=== PATIENT | female | born 1975 | race Caucasian/White ===

== ENCOUNTER 2019-12-17 12:13 | Emergency (ER) | payer SELFPAY ==
--- OUTSIDE RECORDS SUMMARY | 2019-12-17 12:18 | XMS REPORT | Continuity of Care Document ---
:1975 Author Organization [facility] HCIS Care Team Providers Name Role Phone FOUND, PCP NOT Primary Care Physician Unavailable Allergies, Adverse Reactions, Alerts Allergen Type Severity Reaction Last Verified Status Updated Penicillin Allergy Unknown February 21, No Active 2018 Prochlorperazine Allergy Unknown September No Active 2018 Nitrofurantoin Allergy Unknown February 21, No Active 2019 Sumatriptan Allergy Unknown February 21, No Active 2019 Metoclopramide Allergy Unknown February 21, No Active 2019 Eggs Allergy Unknown February 21, No Active 2019 SEAFOOD Allergy Unknown September No Active 2018 Medications Medication Status Dose Units Route Sig Qty Days Start End Instructions Date Date Ciprofloxacin Active 500 mg Every 12 20 November Hours 2018 8:44am Ondansetron Hcl Active 4 mg Every 8 15 November Hours as 2018 for 8:44am Nausea / Vomiting Problems No problem information available. Procedures No procedure information available. Relevant Diagnostic Tests and/or Laboratory Data Laboratory Results Test Date/Time Result Interpretation Reference Result Performing Range Comment Site Urine Source [facility] [address] [place] [address] 8:30am Urine Color September Sanjuana Yellow [facility], [address] [place] [address] 8:30am Urine November Clear Clear [facility], [address] Appearance 2018 [facility] [address] 8:30am Urine pH September 6.0 [pH] 5.0-9.0 [facility] [address] [place] [address] 8:30am Urine Specific September 1.025 1.000-1.030 [facility], [address] [place] 2018 [place] [address] 8:30am Urine Protein September Negative Negative CARLUS Justin [facility], [address] 2018 mg/[place] [address] 8:30am Urine Glucose September Normal Normal NIKHIL Anderson [facility], [address] (UA) 2018 mg/[place] [address] 8:30am Urine Ketones September Trace Negative NIKHIL Anderson [facility], [address] 2018 mg/[place] [address] 8:30am Urine Occult November Negative Negative CARLUS Justin [facility], [address] Blood 2018 /[place] [address] 8:30am Urine Nitrite September Negative Negative NIKHIL Anderson [facility], [address] [place] [address] 8:30am Urine Bilirubin September Negative Negative NIKHIL Anderson [facility], [address] 2018 mg/[place] [address] 8:30am Urine November 4.0 mg/dL [facility], [address] Urobilinogen 2018 [place] [address] 8:30am Urine Leukocyte September 25 /uL Negative NIKHIL Anderson [facility], [address] Esterase 2018 [place] [address] 8:30am Urine RBC September None 0-[address] [facility], [address] 2018 /[HPF] [place] [address] 8:30am Urine WBC September 0-2 /[HPF] 0-[address] [facility], [address] [place] [address] 8:30am Urine Squamous September 3+ Many CARLUS Justin [facility], [address] Epithelial 2018 /[LPF] [place] [address] Cells 8:30am Urine Bacteria September 1+ Few Few/HPF NIKHIL Anderson [facility], [address] 2018 /[HPF] [place] [address] 8:30am Urine Culture September No, NIKHIL Anderson [facility], [address] Indicated 2018 [place] [address] 8:30am Not Met Health Concerns Health Concerns may be documented in an alternate section. Advance Directives Advance Directive Response Recorded Date/Time Does the Patient have an Unknown November 15th, 2019 8:31am Advance Directive? Encounters Encounter Location(s) Arrival/Admit Date Discharge/Depart Date Provider(s) Registered NIKHIL Harrison October 09 DANGELO LITTLE [facility] 12:06pm Departed [facility] October 08October 08, 2019 ALEX TALBERT Emergency Room [facility] 2018 8:20am 8:52am ALMA Cullen MD Departed [facility] October 07October 07, 2019 SAMAN VALENCIA Emergency Room [facility] 2018 6:23pm 6:49pm Assessments No Assessments Information Available Functional Status Observation Response Date Recorded Onset Within the Last 7 Days No Problem Identified October 08, 2019 8:31am Goals Goals may be documented in an alternate section. Immunizations No Immunization Information Available Mental Status No Mental Status Information Available Medical Equipment No Medical Equipment Information available Insurance Providers Guarantor Babatunde Chambers Address [address] [place] [address] Contact Info. Home Phone: Payer Policy Id Coverage Id Subscriber's Subscriber Effective Expiration Name Id Date Date Ne Patient [id number] Babatunde Chambers Insurance Plan of Treatment Future Tests Future scheduled test information is unavailable Pending Tests Pending diagnostic test information is unavailable Future Visits Future appointment information is unavailable Referrals to Other Providers Reason for Referral Start Provider Provider Contact Provider Address Referral Date Information FOUND, PCP NOT Future Procedures Future procedure information is unavailable Future Medications Future medication information is unavailable Patient Instructions Patient instructions are unavailable Social History Smoking Status Status Date of Observation Smokes tobacco daily (finding) October 08, 2019 8:44am Observation Status Observation Response Date of Response Hx Tobacco Use Yes October 08, 2019 8:44am Assigned Sex Female Vital Signs Vital Reading Result Reference Range Collection Date/Time Body Temperature 98.3 [degF] (97.6 - 99.5) October 08, 2019 8:52am Heart Rate 93 /min (60 - 100) October 08, 2019 8:31am Heart Rate 93 /min October 08, 2019 8:52am Respiratory rate 20 /min (12 - 24) October 08, 2019 8:31am Respiratory rate 20 /min October 08, 2019 8:52am BP Systolic 112 mm[Hg] (100 - 140) October 08, 2019 8:31am BP Systolic 112 mm[Hg] October 08, 2019 8:52am BP Diastolic 72 mm[Hg] (60 - 90) October 08, 2019 8:31am BP Diastolic 72 mm[Hg] October 08, 2019 8:52am
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
--- OUTSIDE RECORDS SUMMARY | 2019-12-17 12:18 | XMS REPORT | Continuity of Care Document ---
:1975 Author Organization [facility] HCIS Care Team Providers Name Role Phone FOUND, PCP NOT Primary Care Physician Unavailable Allergies, Adverse Reactions, Alerts Allergen Type Severity Reaction Last Verified Status Updated Penicillin Allergy Unknown February 21, No Active 2019 Nitrofurantoin Allergy Unknown February 21, No Active 2019 Sumatriptan Allergy Unknown February 21, No Active 2019 Metoclopramide Allergy Unknown February 21, No Active 2019 Eggs Allergy Unknown February 21, No Active 2019 Medications No medication information available. Problems No problem information available. Procedures No procedure information available. Relevant Diagnostic Tests and/or Laboratory Data No known relevant diagnostic tests and/or laboratory data. Health Concerns Health Concerns may be documented in an alternate section. Advance Directives Advance Directive Response Recorded Date/Time Does the Patient have an No March 12, 2019 3:47pm Advance Directive? Encounters Encounter Location(s) Arrival/Admit Date Discharge/Depart Date Provider(s) Departed [facility] October 07October 07, 2019 SAMAN VALENCIA [facility] 6:23pm 6:49pm Assessments No Assessments Information Available Functional Status Observation Response Date Recorded Onset Within the Last 7 Days No Problem Identified February 21, 2019 12:48pm Goals Goals may be documented in an alternate section. Immunizations No Immunization Information Available Mental Status No Mental Status Information Available Medical Equipment No Medical Equipment Information available Plan of Treatment Future Tests Future scheduled [...] Date of Observation Smokes tobacco daily (finding) March 12, 2019 3:59pm Observation Status Observation Response Date of Response Hx Tobacco Use Yes March 12, 2019 3:59pm Assigned Sex Female Vital Signs No vital signs result information available.
--- OUTSIDE RECORDS SUMMARY | 2019-12-17 12:18 | XMS REPORT | Continuity of Care Document ---
:1975 Author Organization [facility] HCIS Care Team Providers Name Role [...] Site Urine Source September [facility] [address] [place] [id number] 8:30am Urine Color September Sanjuana Yellow [facility], [address] 2018 [facility] [address] 8:30am Urine November Clear Clear [facility], [address] Appearance 2018 [facility] [address] 8:30am Urine pH September 6.0 [pH] 5.0-9.0 [facility] [address] 2018 [facility] [address] 8:30am Urine Specific September 1.025 1.000-1.030 [facility], [address] [place] 2018 [facility] [address] 8:30am Urine Protein September Negative Negative CARLUS Justin [facility], [address] 2018 mg/[place] [address] 8:30am Urine Glucose September Normal Normal [facility], [address] (UA) 2018 mg/[place] [address] 8:30am Urine Ketones September Trace Negative NIKHIL Anderson [facility], [address] 2018 mg/[place] [address] 8:30am Urine Occult November Negative Negative CARLUS Justin [facility], [address] Blood 2018 /[place] [id number] 8:30am Urine Nitrite September Negative Negative NIKHIL Anderson [facility], [address] [place] [address] 8:30am Urine Bilirubin September Negative Negative NIKHIL Anderson [facility], [address] 2018 mg/[place] [address] 8:30am Urine November 4.0 mg/dL Normal [facility], [address] Urobilinogen 2018 [place] [id number] 8:30am Urine Leukocyte September 25 /uL Negative NIKHIL Anderson [facility], [address] Esterase 2018 [place] [address] 8:30am Urine RBC September None 0-2 NIKHIL Anderson [facility], [address] 2018 /[HPF] [place] [id number] 8:30am Urine WBC September 0-2 /[HPF] 0-5 [facility], [address] [place] [address] 8:30am Urine Squamous September 3+ Many [facility], [address] Epithelial 2018 /[LPF] [place] [id number] Cells 8:30am Urine Bacteria September 1+ Few Few/HPF [facility], [address] 2018 /[HPF] [place] [id number] 8:30am Urine Culture September No, NIKHIL Anderson [facility], [address] Indicated [address] [place] [id number] 8:30am Not Met Health Concerns Health Concerns may be documented in an alternate section. Advance Directives Advance Directive Response Recorded Date/Time Does the Patient have an Unknown October 08, 2019 8:31am Advance Directive? Chief Complaint and Reason for Visit Chief Complaint Flank Pain Reason for Visit [id number] Encounters Encounter Location(s) Arrival/Admit Date Discharge/Depart Date Provider(s) Departed [facility] October 08, October 08, 2019 ALEX TALBERT, Emergency Room [facility] 2018 8:20am 8:52am ALMA Cullen MD Departed [facility] October 07October 07, 2019 SAMAN VALENCIA Emergency Room [facility] 2018 6:23pm 6:49pm Recent Diagnosis Onset Date Urinary tract infection Flank pain Assessments Diagnosis Onset Date Resolution Status Urinary tract infection Flank pain Functional Status Observation Response Date Recorded Onset Within the Last 7 Days No Problem Identified October 08, 2019 8:31am Goals Goals may be documented in an alternate section. Immunizations No Immunization Information Available Mental Status No Mental Status Information Available Medical Equipment No Medical Equipment Information available Insurance Providers Guarantor Babatunde Chambers Address [address] [place] [address] Contact Info. Home Phone: Payer Policy Id Coverage Id Subscriber's Subscriber Effective Expiration Name Id Date Date Co Patient [id number] Babautnde Chambers Insurance Plan of Treatment Return to the ER immediately if you have any problems! Follow up with your doctor in 2 days for further evaluation of this problem. Future Tests Future scheduled test information is unavailable Pending Tests Pending diagnostic test information is unavailable Future Visits Future appointment information is unavailable Referrals to Other Providers Reason for Referral Start Provider Provider Contact Provider Address Referral Date Information FOUND, PCP NOT Future Procedures Future procedure information is unavailable Future Medications Future medication information is unavailable Patient Instructions Kidney Infection (DC) Social History Smoking Status Status Date of [...] Diastolic 72 mm[Hg] October 08, 2019 8:52am Weight 140 [lb_av] October 08, 2019 8:31am BMI (Body Mass Index) 24.0 kg/m2 October 08, 2019 8:31am
--- OUTSIDE RECORDS SUMMARY | 2019-12-17 12:18 | XMS REPORT ---
:1975 Author Organization [facility] Address [address] [place] [address] [address]. [address] [place] [address] Care Team Providers Name Role Phone MAREN WEI Primary Care Provider Unavailable JOHANN GUAN Unavailable Unavailable RAKESH JUSTICE Unavailable Unavailable Problems This patient has no known problems. Allergies, Adverse Reactions, Alerts This patient has no known allergies or adverse reactions. Medications This patient has no known medications. Encounters Start End Encounter Admission Attending Care Care Encounter Date/Time Date/Time Type Type Clinicians Facility Department ID 2017-02-23 2017-02-23 Emergency E [facility] [id number] 16:08:00 16:08:00 Results Test Description Test Time Test Comments Text Results Atomic Results Result Comments RAD, CHEST, 2 2018-09-15 22:33:00 Reason for FINAL REPORT PATIENT ID: VIEWS exam:->COUGH [id number] TECHNIQUE: 2 views of the chest. COMPARISON: None FINDINGS: The cardiac silhouette is within normal limits. Mediastinum is unremarkable. Lungs are clear. Osseous structures appear unremarkable. Surgical clips in the upper abdomen. IMPRESSION: No acute cardiopulmonary disease. Signed: Kristopher Haynes MDReport Verified Date/Time: 09/15/2018 22:33:09 Reading Location: [facility] Mammo Reading Room E DRUG SCREEN 2018-08-26 22:12:00 Test Item Value Reference Range Comments AMPHET (test code=BAMP) POSITIVE NEGATIVE This is an unconfirmed screening. Result are to be used for medical purposes (treatment) only. Not intended for non-medical purposes. Cut-off concentration for a positive result for each drug: Amphetamine - 1,000 ng/ml Barbiturate - 200 ng/ml Benzodiazepine - 200 ng/ml Cannabinoids - 50 ng/ml Cocaine - 300 ng/ml Opiates - 300 ng/ml PCP - 25 ng/ml BARBITURATES (test code=BBAR) POSITIVE NEGATIVE BENZO (test code=BBENZ) NEGATIVE NEGATIVE CANNABS (test code=BCANN) NEGATIVE NEGATIVE COCAINE (test code=BCOC) NEGATIVE NEGATIVE OPIATES (test code=BOPI) NEGATIVE NEGATIVE PCP (test code=BMTPCP) NEGATIVE NEGATIVE [id number] 21:52:00 Test Item Value Reference Range Comments GLUCOSE (test code=URGLU) NEGATIVE MG/DL NEG-100 BILIRUBN (test code=URBILI) NEGATIVE NEGATIVE KETONE (test code=URKET) NEGATIVE MG/DL NEGATIVE BLOOD (test code=URBLD) NEGATIVE UR PH (test code=URPH) 5.0 5.0-7.5 PROTEIN (test code=URPRO) NEGATIVE MG/DL NEGATIVE NITRITES (test code=URNIT) POSITIVE NEGATIVE UROBILINGEN (test code=URURO) 1.0 EU/DL 0.2-1.0 LEUKOCYT (test code=URLEU) SMALL NEGATIVE UA COLOR (test code=UA COLOR) YELLOW YELLOW CLARITY (test code=CLARITY) CLOUDY CLEAR SP GRAV (test code=URSPGRAV) 1.029 1.000-1.025 UAMICRO (test code=UAMICRO) YES WBC (test code=URWBC) 30 /HPF 0-5 RBC (test code=URRBC) 2 /HPF 0-2 CASTS (test code=CAST) 0 /LPF 0-3 UR EPI (test code=EPI) 74 /LPF BACTERIA (test code=BACTERIA) TNTC NONE MUCOUS (test code=URMUCOUS) MUCH /LPF NONE HEPATITIS C ANTIBODY [id number] 10:45:00 Test Item Value Reference Range Comments SCRN HCV (test code=SCRN NEGATIVE NEGATIVE Hepatitis C Antibody test is for HCV) screening purposes only. All reactives will be confirmed by additional testing. ER SCREEN FOR HIV 10:45:00 Test Item Value Reference Range Comments HIV 1/2 AB (test NONREACTIVE NONREACTIVE This test is used for SCREENING code=SCRN HIV) purposes only. All reactive results are prelimenary and confirmation results will follow. URINE DRUG [id number] 18:04:00 Test Item Value Reference Range Comments AMPHET (test code=BAMP) POSITIVE NEGATIVE This is an unconfirmed screening. Result are to be used for medical purposes (treatment) only. Not intended for non-medical purposes. Cut-off concentration for a positive result for each drug: Amphetamine - 1,000 ng/ml Barbiturate - 200 ng/ml Benzodiazepine - 200 ng/ml Cannabinoids - 50 ng/ml Cocaine - 300 ng/ml Opiates - 300 ng/ml PCP - 25 ng/ml BARBITURATES (test code=BBAR) POSITIVE NEGATIVE BENZO (test code=BBENZ) NEGATIVE NEGATIVE CANNABS (test code=BCANN) NEGATIVE NEGATIVE COCAINE (test code=BCOC) NEGATIVE NEGATIVE OPIATES (test code=BOPI) NEGATIVE NEGATIVE PCP (test code=BMTPCP) NEGATIVE NEGATIVE [id number] 17:43:00 Test Item Value Reference Range Comments GLUCOSE (test code=URGLU) NEGATIVE MG/DL NEG-100 BILIRUBN (test code=URBILI) NEGATIVE NEGATIVE KETONE (test code=URKET) TRACE MG/DL NEGATIVE BLOOD (test code=URBLD) NEGATIVE UR PH (test code=URPH) 5.5 5.0-7.5 PROTEIN (test code=URPRO) TRACE MG/DL NEGATIVE NITRITES (test code=URNIT) NEGATIVE NEGATIVE UROBILINGEN (test code=URURO) 1.0 EU/DL 0.2-1.0 LEUKOCYT (test code=URLEU) NEGATIVE NEGATIVE UA COLOR (test code=UA COLOR) YELLOW YELLOW CLARITY (test code=CLARITY) CLEAR CLEAR SP GRAV (test code=URSPGRAV) 1.039 1.000-1.025 UAMICRO (test code=UAMICRO) YES WBC (test code=URWBC) 4 /HPF 0-5 RBC (test code=URRBC) 3 /HPF 0-2 CASTS (test code=CAST) 12 /LPF 0-3 UR EPI (test code=EPI) 50 /LPF BACTERIA (test code=BACTERIA) NEGATIVE NONE CRYSTALS (test code=CRYSTALS) FEW /HPF NONE CRYSTYPE (test code=CRYSTYPE) CALCIUM OXALATE MUCOUS (test code=URMUCOUS) MUCH /LPF NONE BLOOD ALCOHOL (ETOH)2018-08-16 17:10:00 Test Item Value Reference Range Comments ALCOHOL BLOOD LEVEL (test <10 MG/DL 0-10 Results are to be used for code=ALC BLD) medical purposes (treatment) only. Not intended for non medical purposes. [id number] 17:10:00 Test Item Value Reference Range Comments SODIUM (test code=NA) 141 MMOL/L 137-145 K+ (test code=KSERUM) 4.4 MMOL/L 3.5-5.1 PLEASE NOTE NEW REFERENCE RANGE(S) IN EFFECT EFFECTIVE 06/28/2010 - NEW ANALYZER ([facility] 5600) CHLORIDE (test code=CL) 108 MMOL/L 98-107 CO2 (test code=CO2) 28 MMOL/L 22-30 BUN (test code=BUN) 16 MG/DL 7-17 CREA (test code=CREA) 0.5 MG/DL 0.7-1.2 GLUCOSE (test 92 MG/DL 70-99 Fasting glucose normal code=GLUCOSE) <100 MG/DL- [employer] recommendation CALCIUM (test 8.5 MG/DL 8.4-10.2 code=CABLOOD) TOTPROT (test 5.8 G/DL 6.3-8.2 code=TOTPROT) ALBUMIN (test 3.3 G/DL 3.5-5.0 code=ALBSERUM) BILITOT (test <0.1 MG/DL 0.2-1.3 code=BILITOT) AST (test code=AST) 20 U/L 15-46 PHOSALK (test 74 U/L 38-126 code=PHOSALK) ALT (test code=ALT) 29 U/L 13-69 GFR (test code=GFR) 144 mL/min/1.73m2 A GFR of >90 mL/min/1.73m2 is considered normal. CREATINE [id number] 17:10:00 Test Item Value Reference Range Comments CK (test code=CK) 33 U/L 30-135 [id number] 16:37:00 Test Item Value Reference Range Comments WBC (test code=WBC) 6.9 K/UL 3.5-10.9 RBC (test code=RBC) 4.34 M/UL 4.0-5.0 HGB (test code=HGB) 8.9 G/DL 11.5-15.5 HCT (test code=HCT) 28.5 % 34-46 MCV (test code=MCV) 65.7 FL 80-98 MCH (test code=MCH) 20.5 PG 28-32 MCHC (test code=MCHC) 31.2 G/DL 32.5-36.5 RDW (test code=RDW) 20.7 % 11.5-14.5 PLT (test code=PLT) 347 K/UL 150-450 MANDIFF (test code=MANDIFF) NO SCAN (test code=SCAN) NO NEUT% (test code=NEUT%) 52.1 % 40-75 LYMPH% (test code=LYMPH%) 35.2 % 24-44 MONO% (test code=MONO%) 7.1 % 0-13 EOS% (test code=EOS%) 4.6 % 0-4 BASO % (test code=BASO%) 0.7 % 0-2 IG (test code=IG) 0 % 0-1 IG% (test code=IG%) 0.3 % 0-1 IG%=Metamyelocytes, Myelocytes, and Promyelocytes. (Immature neutrophils not including "bands".) > 3% IG indicates risk of sepsis NRBC% (test code=NRBC%) 0 /100 WBC ABS NEUT (test code=NEUT) 3.6 K/UL 1.2-7.2 POCT-GLUCOSE [id number] 07:47:00 Test Item Value Reference Range Comments POC-GLUCOSE METER (BEAKER) 87 mg/dL 70-110 TESTED AT [facility] [address] [facility] (test hrku=3317) [facility] [address] BASIC METABOLIC [id number] 05:15:00 Test Item Value Reference Range Comments SODIUM (BEAKER) (test 140 meq/L 136-145 yeom=163) POTASSIUM (BEAKER) (test 4.2 meq/L 3.5-5.1 eoof=552) CHLORIDE (BEAKER) (test 108 meq/L 98-107 sbah=749) CO2 (BEAKER) (test 23 meq/L 22-29 qqks=446) BLOOD UREA NITROGEN 6 mg/dL 7-21 (BEAKER) (test ftsx=364) CREATININE (BEAKER) (test 0.61 mg/dL 0.57-1.25 xlpl=577) GLUCOSE RANDOM (BEAKER) 80 mg/dL 70-105 (test asnq=991) CALCIUM (BEAKER) (test 8.4 mg/dL 8.4-10.2 dyad=655) EGFR (BEAKER) (test 108 mL/min/1.73 sq m ESTIMATED GFR IS NOT pmoe=1122) ACCURATE CREATININE CLEARANCE IN PREDICTING GLOMERULAR FILTRATION RATE. ESTIMATED GFR IS NOT APPLICABLE FOR DIALYSIS PATIENTS. HEMOGLOBIN AND [id number] 04:48:00 Test Item Value Reference Range Comments HEMOGLOBIN (BEAKER) (test szdp=119) 8.2 GM/DL 11.2-15.7 HEMATOCRIT (BEAKER) (test sktg=375) 28.6 % 34.1-44.9 [id number] 22:06:00 Test Item Value Reference Range Comments PROTIME (BEAKER) (test djmw=845) 17.2 seconds 11.7-14.7 INR (BEAKER) (test emtr=231) 1.4 <=5.9 PARTIAL THROMBOPLASTIN TIME (BEAKER) (test 35.4 seconds 22.5-36.0 wqut=254) RECOMMENDED COUMADIN/WARFARIN INR THERAPY RANGESSTANDARD DOSE: 2.0 - 3.0 Includes: PROPHYLAXIS forvenous thrombosis, systemic embolization; TREATMENT for venous thrombosis and/or pulmonary embolus.HIGH RISK: Target INR is 2.5-3.5 for patients with mechanical heart valves.[id number] 18:03:00 Test Item Value Reference Range Comments MAGNESIUM (BEAKER) (test 2.2 mg/dL 1.6-2.6 Specimen slightly hemolyzed axsy=844) BASIC METABOLIC [id number] 18:03:00 Test Item Value Reference Range Comments SODIUM (BEAKER) (test 141 meq/L 136-145 vvei=826) POTASSIUM (BEAKER) (test 4.2 meq/L 3.5-5.1 Specimen slightly atgx=331) hemolyzed CHLORIDE (BEAKER) (test 107 meq/L 98-107 cvul=768) CO2 (BEAKER) (test 23 meq/L 22-29 zkfa=041) BLOOD UREA NITROGEN 4 mg/dL 7-21 (BEAKER) (test piqa=363) CREATININE (BEAKER) (test 0.63 mg/dL 0.57-1.25 Specimen slightly nlxi=757) hemolyzed GLUCOSE RANDOM (BEAKER) 68 mg/dL 70-105 (test gdla=596) CALCIUM (BEAKER) (test 8.9 mg/dL 8.4-10.2 worv=883) EGFR (BEAKER) (test 104 mL/min/1.73 sq m ESTIMATED GFR IS NOT vidc=9070) ACCURATE CREATININE CLEARANCE IN PREDICTING GLOMERULAR FILTRATION RATE. ESTIMATED GFR IS NOT APPLICABLE FOR DIALYSIS PATIENTS. POCT-GLUCOSE [id number] 13:00:00 Test Item Value Reference Range Comments POC-GLUCOSE METER (BEAKER) 98 mg/dL 70-110 TESTED AT [address] (test dsng=9557) [place] [address] POCT-GLUCOSE [id number] 07:30:00 Test Item Value Reference Range Comments POC-GLUCOSE METER (BEAKER) 93 mg/dL 70-110 TESTED AT [address] (test ulnv=0139) [place] [id number] CBC W/PLT COUNT & AUTO [id number] 06:43:00 Test Item Value Reference Range Comments WHITE BLOOD CELL COUNT 4.5 K/ L 3.5-10.5 (BEAKER) (test dcbb=511) RED BLOOD CELL COUNT (BEAKER) 4.03 M/ L 3.93-5.22 (test fmem=962) HEMOGLOBIN (BEAKER) (test 7.7 GM/DL 11.2-15.7 ljly=491) HEMATOCRIT (BEAKER) (test 27.4 % 34.1-44.9 ylzv=999) MEAN CORPUSCULAR VOLUME 68.0 fL 79.4-94.8 (BEAKER) (test xfhb=083) MEAN CORPUSCULAR HEMOGLOBIN 19.1 pg 25.6-32.2 (BEAKER) (test mytp=366) MEAN CORPUSCULAR HEMOGLOBIN 28.1 GM/DL 32.2-35.5 CONC (BEAKER) (test jpdg=304) RED CELL DISTRIBUTION WIDTH 25.7 % 11.7-14.4 (BEAKER) (test vpzx=149) PLATELET COUNT (BEAKER) (test 235 K/CU MM 150-450 duge=675) MEAN PLATELET VOLUME (BEAKER) fL 9.4-12.3 Unable to report due to (test nanf=543) abnormal Platelet population distribution. NUCLEATED RED BLOOD CELLS 0 /100 WBC 0-0 (BEAKER) (test gcho=719) NEUTROPHILS RELATIVE PERCENT 57 % (BEAKER) (test yaax=294) LYMPHOCYTES RELATIVE PERCENT 30 % (BEAKER) (test yzei=345) MONOCYTES RELATIVE PERCENT 8 % (BEAKER) (test rfmu=285) EOSINOPHILS RELATIVE PERCENT 5 % (BEAKER) (test nrzl=316) BASOPHILS RELATIVE PERCENT 0 % (BEAKER) (test kyjf=081) NEUTROPHILS ABSOLUTE COUNT 2.58 K/ L 1.56-6.13 (BEAKER) (test jcsr=103) LYMPHOCYTES ABSOLUTE COUNT 1.36 K/ L 1.18-3.74 (BEAKER) (test hifm=308) MONOCYTES ABSOLUTE COUNT 0.36 K/ L 0.24-0.36 (BEAKER) (test awsa=869) EOSINOPHILS ABSOLUTE COUNT 0.21 K/ L 0.04-0.36 (BEAKER) (test zsme=579) BASOPHILS ABSOLUTE COUNT 0.02 K/ L 0.01-0.08 (BEAKER) (test yebf=933) IMMATURE GRANULOCYTES-RELATIVE 0 % 0-1 PERCENT (BEAKER) (test mzjr=4424) POCT-GLUCOSE [id number] 22:04:00 Test Item Value Reference Range Comments POC-GLUCOSE METER (BEAKER) 87 mg/dL 70-110 TESTED AT [facility] [address] [facility] (test ziac=8949) [facility] [address] [id number] 15:12:00 Test Item Value Reference Range Comments LIPASE (BEAKER) (test bihy=961) 7 U/L 8-78 BASIC METABOLIC [id number] 15:12:00 Test Item Value Reference Range Comments SODIUM (BEAKER) (test 142 meq/L 136-145 ussu=615) POTASSIUM (BEAKER) (test 3.7 meq/L 3.5-5.1 wyjh=945) CHLORIDE (BEAKER) (test 107 meq/L 98-107 jxeh=896) CO2 (BEAKER) (test 27 meq/L 22-29 kmzm=081) BLOOD UREA NITROGEN 5 mg/dL 7-21 (BEAKER) (test ldud=602) CREATININE (BEAKER) (test 0.57 mg/dL 0.57-1.25 wpdt=205) GLUCOSE RANDOM (BEAKER) 82 mg/dL 70-105 (test wmlz=311) CALCIUM (BEAKER) (test 8.6 mg/dL 8.4-10.2 qxct=127) EGFR (BEAKER) (test 116 mL/min/1.73 sq m ESTIMATED GFR IS NOT cuik=9715) ACCURATE CREATININE CLEARANCE IN PREDICTING GLOMERULAR FILTRATION RATE. ESTIMATED GFR IS NOT APPLICABLE FOR DIALYSIS PATIENTS. HEPATIC FUNCTION [id number] 15:12:00 Test Item Value Reference Range Comments TOTAL PROTEIN (BEAKER) (test zfpf=032) 5.9 gm/dL 6.0-8.3 ALBUMIN (BEAKER) (test lszz=4437) 3.4 g/dL 3.5-5.0 BILIRUBIN TOTAL (BEAKER) (test qdye=591) 0.3 mg/dL 0.2-1.2 BILIRUBIN DIRECT (BEAKER) (test jzen=895) 0.2 mg/dL 0.1-0.5 ALKALINE PHOSPHATASE (BEAKER) (test kqxq=195) 267 U/L 40-150 AST (SGOT) (BEAKER) (test nmqn=014) 16 U/L 5-34 ALT (SGPT) (BEAKER) (test pmsw=758) 15 U/L 6-55 CBC W/PLT COUNT & AUTO [id number] 15:00:00 Test Item Value Reference Range Comments WHITE BLOOD CELL COUNT 6.7 K/ L 3.5-10.5 (BEAKER) (test qbeo=811) RED BLOOD CELL COUNT (BEAKER) 4.47 M/ L 3.93-5.22 (test ytcr=073) HEMOGLOBIN (BEAKER) (test 8.4 GM/DL 11.2-15.7 aira=758) HEMATOCRIT (BEAKER) (test 28.9 % 34.1-44.9 vfqm=629) MEAN CORPUSCULAR VOLUME 64.7 fL 79.4-94.8 (BEAKER) (test qzfa=263) MEAN CORPUSCULAR HEMOGLOBIN 18.8 pg 25.6-32.2 (BEAKER) (test gwjp=579) MEAN CORPUSCULAR HEMOGLOBIN 29.1 GM/DL 32.2-35.5 CONC (BEAKER) (test lbmq=557) RED CELL DISTRIBUTION WIDTH 25.3 % 11.7-14.4 (BEAKER) (test knkv=490) PLATELET COUNT (BEAKER) (test 318 K/CU MM 150-450 ggax=502) MEAN PLATELET VOLUME (BEAKER) fL 9.4-12.3 Unable to report due to (test ekdr=061) abnormal Platelet population distribution. NUCLEATED RED BLOOD CELLS 0 /100 WBC 0-0 (BEAKER) (test cudh=714) NEUTROPHILS RELATIVE PERCENT 57 % (BEAKER) (test ekeu=550) LYMPHOCYTES RELATIVE PERCENT 31 % (BEAKER) (test stbm=338) MONOCYTES RELATIVE PERCENT 8 % (BEAKER) (test kkbp=176) EOSINOPHILS RELATIVE PERCENT 3 % (BEAKER) (test ongy=907) BASOPHILS RELATIVE PERCENT 0 % (BEAKER) (test gbqb=904) NEUTROPHILS ABSOLUTE COUNT 3.82 K/ L 1.56-6.13 (BEAKER) (test jjgx=652) LYMPHOCYTES ABSOLUTE COUNT 2.08 K/ L 1.18-3.74 (BEAKER) (test vtqb=638) MONOCYTES ABSOLUTE COUNT 0.56 K/ L 0.24-0.36 (BEAKER) (test trqf=671) EOSINOPHILS ABSOLUTE COUNT 0.18 K/ L 0.04-0.36 (BEAKER) (test xzit=624) BASOPHILS ABSOLUTE COUNT 0.03 K/ L 0.01-0.08 (BEAKER) (test oggy=177) IMMATURE GRANULOCYTES-RELATIVE 0 % 0-1 PERCENT (BEAKER) (test imgk=0264) URINALYSIS W/ [id number] 14:49:00 Test Item Value Reference Range Comments COLOR (BEAKER) (test kzrg=799) Light Yellow CLARITY (BEAKER) (test dhgv=575) Clear SPECIFIC GRAVITY UA (BEAKER) (test tipt=811) 1.004 1.001-1.035 PH UA (BEAKER) (test oehj=123) 7.0 5.0-8.0 PROTEIN UA (BEAKER) (test faec=900) Negative Negative GLUCOSE UA (BEAKER) (test dskp=135) Negative Negative KETONES UA (BEAKER) (test bfiv=818) Negative Negative BILIRUBIN UA (BEAKER) (test wrso=485) Negative Negative BLOOD UA (BEAKER) (test tfeu=593) Negative Negative NITRITE UA (BEAKER) (test tuai=745) Negative Negative LEUKOCYTE ESTERASE UA (BEAKER) (test gxqs=940) Small Negative UROBILINOGEN UA (BEAKER) (test heot=797) 0.2 mg/dL 0.2-1.0 RBC UA (BEAKER) (test dwxf=528) 0 /HPF WBC UA (BEAKER) (test snjg=116) 3 /HPF BACTERIA (BEAKER) (test rdge=400) Rare SQUAMOUS EPITHELIAL (BEAKER) (test ttmi=525) 1 /HPF SOURCE(BEAKER) (test bhrm=3976) Urine, Voided SCREEN, [id number] 14:46:00 Test Item Value Reference Range Comments TEST URINE (BEAKER) (test hvku=650) Negative TISSUE [id number] 17:18:00Surgical Pathology Report Case: [id number] Authorizing Provider: Sebastien Ba Collected: 05/19/2018 1718 Ordering Location: [address] Received: 05/20/2018 0933 Service Pathologist: Rose Marie Agee MD Specimen: Bile, DISTAL BILE DUCT BX BILE DUCT, DISTAL, BIOPSIES- BENIGN COLUMNAR MUCOSA- NEGATIVE FOR DYSPLASIA OR CARCINOMA Signing Pathologist Direct Phone Line: [phone] signed by Rose Marie Agee MD on 05/24/2018 at 5:18 [id number] Distal bile duct biopsyReceived in formalin labeled "bile", description "distal bile duct biopsy " is a single fragment measuring 0.2 cm in greatest dimension. The specimen is entirely submitted in A1. DB/ew Microscopic examination is performed and the findings are incorporated in the diagnostic line.CBC W/PLT COUNT & AUTO [id number] 14:24:00 Test Item Value Reference Range Comments WHITE BLOOD CELL COUNT 6.2 K/ L 3.5-10.5 (BEAKER) (test smux=407) RED BLOOD CELL COUNT (BEAKER) 3.83 M/ L 3.93-5.22 (test zbwo=640) HEMOGLOBIN (BEAKER) (test 7.2 GM/DL 11.2-15.7 tipd=466) HEMATOCRIT (BEAKER) (test 25.2 % 34.1-44.9 ysdc=945) MEAN CORPUSCULAR VOLUME 65.8 fL 79.4-94.8 (BEAKER) (test auhn=977) MEAN CORPUSCULAR HEMOGLOBIN 18.8 pg 25.6-32.2 (BEAKER) (test zvte=074) MEAN CORPUSCULAR HEMOGLOBIN 28.6 GM/DL 32.2-35.5 CONC (BEAKER) (test fixj=907) RED CELL DISTRIBUTION WIDTH 25.3 % 11.7-14.4 (BEAKER) (test byai=614) PLATELET COUNT (BEAKER) (test 260 K/CU MM 150-450 weos=600) MEAN PLATELET VOLUME (BEAKER) fL 9.4-12.3 Unable to report due to (test gnxz=351) abnormal Platelet population distribution. NUCLEATED RED BLOOD CELLS 0 /100 WBC 0-0 (BEAKER) (test yuiy=244) NEUTROPHILS RELATIVE PERCENT 42 % (BEAKER) (test wxsj=498) LYMPHOCYTES RELATIVE PERCENT 45 % (BEAKER) (test idrj=425) MONOCYTES RELATIVE PERCENT 9 % (BEAKER) (test fjpi=835) EOSINOPHILS RELATIVE PERCENT 3 % (BEAKER) (test tjfy=328) BASOPHILS RELATIVE PERCENT 1 % (BEAKER) (test zjgz=199) NEUTROPHILS ABSOLUTE COUNT 2.58 K/ L 1.56-6.13 (BEAKER) (test rdea=807) LYMPHOCYTES ABSOLUTE COUNT 2.76 K/ L 1.18-3.74 (BEAKER) (test ymjx=236) MONOCYTES ABSOLUTE COUNT 0.57 K/ L 0.24-0.36 (BEAKER) (test azbb=563) EOSINOPHILS ABSOLUTE COUNT 0.17 K/ L 0.04-0.36 (BEAKER) (test meme=507) BASOPHILS ABSOLUTE COUNT 0.05 K/ L 0.01-0.08 (BEAKER) (test pwjd=915) IMMATURE GRANULOCYTES-RELATIVE 1 % 0-1 PERCENT (BEAKER) (test jvfr=4464) COMPREHENSIVE METABOLIC [id number] 13:21:00 Test Item Value Reference Range Comments TOTAL PROTEIN (BEAKER) 5.0 gm/dL 6.0-8.3 (test arqh=499) ALBUMIN (BEAKER) (test 2.9 g/dL 3.5-5.0 kydi=4457) ALKALINE PHOSPHATASE 278 U/L 40-150 (BEAKER) (test gohq=253) BILIRUBIN TOTAL (BEAKER) 0.2 mg/dL 0.2-1.2 (test hksu=082) SODIUM (BEAKER) (test 139 meq/L 136-145 exgi=772) POTASSIUM (BEAKER) (test 3.9 meq/L 3.5-5.1 irvu=975) CHLORIDE (BEAKER) (test 109 meq/L 98-107 dlvy=231) CO2 (BEAKER) (test 21 meq/L 22-29 igjq=628) BLOOD UREA NITROGEN 4 mg/dL 7-21 (BEAKER) (test djly=824) CREATININE (BEAKER) (test 0.59 mg/dL 0.57-1.25 oldt=185) GLUCOSE RANDOM (BEAKER) 87 mg/dL 70-105 (test tuyb=596) CALCIUM (BEAKER) (test 8.0 mg/dL 8.4-10.2 ewev=995) AST (SGOT) (BEAKER) (test 17 U/L 5-34 zkxx=778) ALT (SGPT) (BEAKER) (test 23 U/L 6-55 ivio=308) EGFR (BEAKER) (test 112 mL/min/1.73 sq ESTIMATED GFR IS NOT sdka=8299) m ACCURATE CREATININE CLEARANCE IN PREDICTING GLOMERULAR FILTRATION RATE. ESTIMATED GFR IS NOT APPLICABLE FOR DIALYSIS PATIENTS. [id number] 16:59:00 Test Item Value Reference Range Comments LIPASE (BEAKER) (test bynz=388) 15 U/L 8-78 COMPREHENSIVE METABOLIC [id number] 16:59:00 Test Item Value Reference Range Comments TOTAL PROTEIN (BEAKER) 5.2 gm/dL 6.0-8.3 (test mtah=851) ALBUMIN (BEAKER) (test 3.1 g/dL 3.5-5.0 zjov=3943) ALKALINE PHOSPHATASE 392 U/L 40-150 (BEAKER) (test sxnu=759) BILIRUBIN TOTAL (BEAKER) 0.3 mg/dL 0.2-1.2 (test pwwq=968) SODIUM (BEAKER) (test 140 meq/L 136-145 wbcy=319) POTASSIUM (BEAKER) (test 3.8 meq/L 3.5-5.1 wfof=811) CHLORIDE (BEAKER) (test 106 meq/L 98-107 bspr=824) CO2 (BEAKER) (test 31 meq/L 22-29 hkjg=843) BLOOD UREA NITROGEN 3 mg/dL 7-21 (BEAKER) (test gvaw=901) CREATININE (BEAKER) (test 0.58 mg/dL 0.57-1.25 ctrx=353) GLUCOSE RANDOM (BEAKER) 108 mg/dL 70-105 (test oyfu=379) CALCIUM (BEAKER) (test 8.3 mg/dL 8.4-10.2 zeeb=307) AST (SGOT) (BEAKER) (test 28 U/L 5-34 xsvz=835) ALT (SGPT) (BEAKER) (test 54 U/L 6-55 byhb=262) EGFR (BEAKER) (test 114 mL/min/1.73 sq ESTIMATED GFR IS NOT afuy=7735) m ACCURATE CREATININE CLEARANCE IN PREDICTING GLOMERULAR FILTRATION RATE. ESTIMATED GFR IS NOT APPLICABLE FOR DIALYSIS PATIENTS. CBC W/PLT COUNT & AUTO [id number] 16:52:00 Test Item Value Reference Range Comments WHITE BLOOD CELL COUNT 6.4 K/ L 3.5-10.5 (BEAKER) (test ucfk=690) RED BLOOD CELL COUNT (BEAKER) 3.83 M/ L 3.93-5.22 (test opke=810) HEMOGLOBIN (BEAKER) (test 7.3 GM/DL 11.2-15.7 hnqk=509) HEMATOCRIT (BEAKER) (test 25.0 % 34.1-44.9 podp=700) MEAN CORPUSCULAR VOLUME 65.3 fL 79.4-94.8 (BEAKER) (test gwuk=621) MEAN CORPUSCULAR HEMOGLOBIN 19.1 pg 25.6-32.2 (BEAKER) (test vvpm=853) MEAN CORPUSCULAR HEMOGLOBIN 29.2 GM/DL 32.2-35.5 CONC (BEAKER) (test tqxh=364) RED CELL DISTRIBUTION WIDTH 25.5 % 11.7-14.4 (BEAKER) (test zqmb=265) PLATELET COUNT (BEAKER) (test 237 K/CU MM 150-450 nlez=311) MEAN PLATELET VOLUME (BEAKER) fL 9.4-12.3 Unable to report due to (test tlly=053) abnormal Platelet population distribution. NUCLEATED RED BLOOD CELLS 0 /100 WBC 0-0 (BEAKER) (test tezt=512) NEUTROPHILS RELATIVE PERCENT 53 % (BEAKER) (test ffsd=291) LYMPHOCYTES RELATIVE PERCENT 36 % (BEAKER) (test cbck=530) MONOCYTES RELATIVE PERCENT 8 % (BEAKER) (test werm=034) EOSINOPHILS RELATIVE PERCENT 2 % (BEAKER) (test jubk=540) BASOPHILS RELATIVE PERCENT 0 % (BEAKER) (test nuto=535) NEUTROPHILS ABSOLUTE COUNT 3.41 K/ L 1.56-6.13 (BEAKER) (test dvgx=277) LYMPHOCYTES ABSOLUTE COUNT 2.32 K/ L 1.18-3.74 (BEAKER) (test kanh=285) MONOCYTES ABSOLUTE COUNT 0.53 K/ L 0.24-0.36 (BEAKER) (test amdd=834) EOSINOPHILS ABSOLUTE COUNT 0.14 K/ L 0.04-0.36 (BEAKER) (test ovwz=154) BASOPHILS ABSOLUTE COUNT 0.02 K/ L 0.01-0.08 (BEAKER) (test hpak=375) IMMATURE GRANULOCYTES-RELATIVE 0 % 0-1 PERCENT (BEAKER) (test lnuj=5053) FL, [id number] 18:28:00Intra Op ImagingReason for exam:->bile duct stone obstructionFINAL REPORT ERCP 6 views 05/19/2018 6:27 PM CLINICAL HISTORY: Instrument localization COMPARISON: None available IMPRESSION : Please correlate imaging report findings with the procedure note prepared by Dr. Ba, as an intra-procedure imaging consultation was not requested. Reported fluoroscopy time: 133.9 seconds. Signed: Barron Miner Verified Date/Time: 05/19/2018 18:28:10 Reading Location: [facility] Radiology Reading Room Electronically signed by: BARRON MINER M.D. on 06:28 PMPREGNANCY SCREEN, [id number] 09:50:00 Test Item Value Reference Range Comments TEST URINE (BEAKER) (test zqiz=016) Negative CBC W/PLT COUNT & AUTO [id number] 06:38:00 Test Item Value Reference Range Comments WHITE BLOOD CELL COUNT 4.9 K/ L 3.5-10.5 (BEAKER) (test rdsm=086) RED BLOOD CELL COUNT (BEAKER) 4.00 M/ L 3.93-5.22 (test isns=879) HEMOGLOBIN (BEAKER) (test 7.4 GM/DL 11.2-15.7 rjco=713) HEMATOCRIT (BEAKER) (test 26.1 % 34.1-44.9 wftz=805) MEAN CORPUSCULAR VOLUME 65.3 fL 79.4-94.8 (BEAKER) (test nlww=388) MEAN CORPUSCULAR HEMOGLOBIN 18.5 pg 25.6-32.2 (BEAKER) (test aoks=225) MEAN CORPUSCULAR HEMOGLOBIN 28.4 GM/DL 32.2-35.5 CONC (BEAKER) (test ulqm=389) RED CELL DISTRIBUTION WIDTH 25.9 % 11.7-14.4 (BEAKER) (test gafo=759) PLATELET COUNT (BEAKER) (test 210 K/CU MM 150-450 zfxh=611) MEAN PLATELET VOLUME (BEAKER) fL 9.4-12.3 Unable to report due to (test ywni=062) abnormal Platelet population distribution. NUCLEATED RED BLOOD CELLS 0 /100 WBC 0-0 (BEAKER) (test knsy=501) NEUTROPHILS RELATIVE PERCENT 44 % (BEAKER) (test ezon=326) LYMPHOCYTES RELATIVE PERCENT 42 % (BEAKER) (test qcvb=406) MONOCYTES RELATIVE PERCENT 8 % (BEAKER) (test ovuw=320) EOSINOPHILS RELATIVE PERCENT 5 % (BEAKER) (test jlec=831) BASOPHILS RELATIVE PERCENT 1 % (BEAKER) (test jwco=203) NEUTROPHILS ABSOLUTE COUNT 2.19 K/ L 1.56-6.13 (BEAKER) (test nuli=707) LYMPHOCYTES ABSOLUTE COUNT 2.07 K/ L 1.18-3.74 (BEAKER) (test gzfo=200) MONOCYTES ABSOLUTE COUNT 0.40 K/ L 0.24-0.36 (BEAKER) (test wzdh=523) EOSINOPHILS ABSOLUTE COUNT 0.23 K/ L 0.04-0.36 (BEAKER) (test xmmz=323) BASOPHILS ABSOLUTE COUNT 0.03 K/ L 0.01-0.08 (BEAKER) (test rmpr=015) IMMATURE GRANULOCYTES-RELATIVE 0 % 0-1 PERCENT (BEAKER) (test huyy=6510) HEPATIC FUNCTION [id number] 06:36:00 Test Item Value Reference Range Comments TOTAL PROTEIN (BEAKER) (test nomo=758) 4.9 gm/dL 6.0-8.3 ALBUMIN (BEAKER) (test hylf=7931) 3.0 g/dL 3.5-5.0 BILIRUBIN TOTAL (BEAKER) (test uuqo=304) 0.2 mg/dL 0.2-1.2 BILIRUBIN DIRECT (BEAKER) (test oica=469) 0.1 mg/dL 0.1-0.5 ALKALINE PHOSPHATASE (BEAKER) (test mycs=883) 437 U/L 40-150 AST (SGOT) (BEAKER) (test rbba=166) 57 U/L 5-34 ALT (SGPT) (BEAKER) (test fdjd=638) 89 U/L 6-55 BASIC METABOLIC [id number] 06:36:00 Test Item Value Reference Range Comments SODIUM (BEAKER) (test 138 meq/L 136-145 jykd=971) POTASSIUM (BEAKER) (test 3.8 meq/L 3.5-5.1 bals=006) CHLORIDE (BEAKER) (test 105 meq/L 98-107 gfsl=333) CO2 (BEAKER) (test 27 meq/L 22-29 tjlo=259) BLOOD UREA NITROGEN 5 mg/dL 7-21 (BEAKER) (test bchj=140) CREATININE (BEAKER) (test 0.58 mg/dL 0.57-1.25 gcmy=714) GLUCOSE RANDOM (BEAKER) 90 mg/dL 70-105 (test hhlm=994) CALCIUM (BEAKER) (test 8.3 mg/dL 8.4-10.2 icqo=216) EGFR (BEAKER) (test 114 mL/min/1.73 sq m ESTIMATED GFR IS NOT jlhd=6493) ACCURATE CREATININE CLEARANCE IN PREDICTING GLOMERULAR FILTRATION RATE. ESTIMATED GFR IS NOT APPLICABLE FOR DIALYSIS PATIENTS. PROTHROMBIN TIME/[id number] 06:17:00 Test Item Value Reference Range Comments PROTIME (BEAKER) (test zokt=203) 13.2 seconds 11.7-14.7 INR (BEAKER) (test mdqt=273) 1.0 <=5.9 RECOMMENDED COUMADIN/WARFARIN INR THERAPY RANGESSTANDARD DOSE: 2.0 - 3.0 Includes: PROPHYLAXIS forvenous thrombosis, systemic embolization; TREATMENT for venous thrombosis and/or pulmonary embolus.HIGH RISK: Target INR is 2.5-3.5 for patients with mechanical heart valves.HEPATIC FUNCTION [id number] 05:18 :00 Test Item Value Reference Range Comments TOTAL PROTEIN (BEAKER) (test fyht=833) 5.2 gm/dL 6.0-8.3 ALBUMIN (BEAKER) (test krqw=2309) 3.1 g/dL 3.5-5.0 BILIRUBIN TOTAL (BEAKER) (test khnx=775) 0.3 mg/dL 0.2-1.2 BILIRUBIN DIRECT (BEAKER) (test lhrz=570) 0.2 mg/dL 0.1-0.5 ALKALINE PHOSPHATASE (BEAKER) (test tcsk=177) 537 U/L 40-150 AST (SGOT) (BEAKER) (test zceh=433) 126 U/L 5-34 ALT (SGPT) (BEAKER) (test ctqy=092) 136 U/L 6-55 BASIC METABOLIC [id number] 05:18:00 Test Item Value Reference Range Comments SODIUM (BEAKER) (test 139 meq/L 136-145 lnbx=103) POTASSIUM (BEAKER) (test 4.0 meq/L 3.5-5.1 gdfh=858) CHLORIDE (BEAKER) (test 106 meq/L 98-107 meeb=348) CO2 (BEAKER) (test 27 meq/L 22-29 vjhe=854) BLOOD UREA NITROGEN 6 mg/dL 7-21 (BEAKER) (test bicj=816) CREATININE (BEAKER) (test 0.53 mg/dL 0.57-1.25 wchi=903) GLUCOSE RANDOM (BEAKER) 87 mg/dL 70-105 (test enqp=696) CALCIUM (BEAKER) (test 8.2 mg/dL 8.4-10.2 eppy=785) EGFR (BEAKER) (test 127 mL/min/1.73 sq m ESTIMATED GFR IS NOT urzk=6012) ACCURATE CREATININE CLEARANCE IN PREDICTING GLOMERULAR FILTRATION RATE. ESTIMATED GFR IS NOT APPLICABLE FOR DIALYSIS PATIENTS. PROTHROMBIN TIME/[id number] 04:49:00 Test Item Value Reference Range Comments PROTIME (BEAKER) (test yoqy=491) 12.7 seconds 11.7-14.7 INR (BEAKER) (test khto=615) 1.0 <=5.9 RECOMMENDED COUMADIN/WARFARIN INR THERAPY RANGESSTANDARD DOSE: 2.0 - 3.0 Includes: PROPHYLAXIS forvenous thrombosis, systemic embolization; TREATMENT for venous thrombosis and/or pulmonary embolus.HIGH RISK: Target INR is 2.5-3.5 for patients with mechanical heart valves.CBC W/PLT COUNT & AUTO [id number] 04:47:00 Test Item Value Reference Range Comments WHITE BLOOD CELL COUNT 4.4 K/ L 3.5-10.5 (BEAKER) (test uelp=897) RED BLOOD CELL COUNT (BEAKER) 4.02 M/ L 3.93-5.22 (test lgrx=664) HEMOGLOBIN (BEAKER) (test 7.6 GM/DL 11.2-15.7 nnal=589) HEMATOCRIT (BEAKER) (test 26.3 % 34.1-44.9 emtk=910) MEAN CORPUSCULAR VOLUME 65.4 fL 79.4-94.8 (BEAKER) (test wikj=942) MEAN CORPUSCULAR HEMOGLOBIN 18.9 pg 25.6-32.2 (BEAKER) (test jyee=937) MEAN CORPUSCULAR HEMOGLOBIN 28.9 GM/DL 32.2-35.5 CONC (BEAKER) (test ktbf=716) RED CELL DISTRIBUTION WIDTH 25.9 % 11.7-14.4 (BEAKER) (test nyoj=356) PLATELET COUNT (BEAKER) (test 218 K/CU MM 150-450 hswm=000) MEAN PLATELET VOLUME (BEAKER) fL 9.4-12.3 Unable to report due to (test kwjw=023) abnormal Platelet population distribution. NUCLEATED RED BLOOD CELLS 0 /100 WBC 0-0 (BEAKER) (test eurg=778) NEUTROPHILS RELATIVE PERCENT 49 % (BEAKER) (test qasu=018) LYMPHOCYTES RELATIVE PERCENT 38 % (BEAKER) (test gzbx=547) MONOCYTES RELATIVE PERCENT 8 % (BEAKER) (test byqk=192) EOSINOPHILS RELATIVE PERCENT 4 % (BEAKER) (test bfmz=351) BASOPHILS RELATIVE PERCENT 1 % (BEAKER) (test foxg=927) NEUTROPHILS ABSOLUTE COUNT 2.18 K/ L 1.56-6.13 (BEAKER) (test irqg=074) LYMPHOCYTES ABSOLUTE COUNT 1.67 K/ L 1.18-3.74 (BEAKER) (test daqx=482) MONOCYTES ABSOLUTE COUNT 0.36 K/ L 0.24-0.36 (BEAKER) (test vunp=433) EOSINOPHILS ABSOLUTE COUNT 0.19 K/ L 0.04-0.36 (BEAKER) (test heeq=647) BASOPHILS ABSOLUTE COUNT 0.03 K/ L 0.01-0.08 (BEAKER) (test byex=827) IMMATURE GRANULOCYTES-RELATIVE 0 % 0-1 PERCENT (BEAKER) (test xllg=6842) MR, ABDOMEN, [id number] 16:29:00Please do mrcpFINAL REPORT INDICATION:42-year-old female with right upper quadrant abdominal pain and abnormal liver function tests. Evaluate for malignancy. COMPARISON: None. TECHNIQUE: MR ofthe Abdomen with MRCP including 3-D reconstructions. Exam was performed WITHOUT and WITH intravenouscontrast. FINDINGS:The patient is status post antecolic Aimee-en-Y gastric bypass and cholecystectomy. There is intrahepatic and extrahepatic biliary ductal dilatation. The central left intrahepatic ducts measure 8 mm in diameter and the central right intrahepatic ducts measure 6 mm in diameter. The entire common bile duct is dilated measuring 1.5 cm proximally and gradually tapering to 0.9 cm distally. At the very distal common bile duct (3-D MRCP image 41) there is suggestion of a 5 mm filling defect suspicious for a common bile duct stone. There are questionable tiny filling defects in the lateral segment bile duct which may also represent biliary stones. There is no enhancement of the biliary epithelium that would indicate cholangitis. There is no discrete mass at the ampulla. No no evidence of liver abscess or liver mass. Portal venous system is patent. No thrombus in the superior mesenteric vein or splenic vein demonstrated. No upper abdominal lymphadenopathy. Pancreas is normal in configuration and signal and no pancreatic mass or ductal dilatation demonstrated. Spleen is at the upper limits of normal in size measuring 15 cm long axis axial plane. Adrenal glands and kidneys are unremarkable. Lower thorax unremarkable. No suspicious marrow signal abnormality. IMPRESSION:Moderate intrahepatic and extrahepatic biliary ductal dilatation with filling defect in the very distal common bile duct most likely representing a biliary stone. Suggestion of a few small stones in the lateral segmental bile duct as well. No evidence of liver abscess. No ampullary lesion or evidence of cholangiocarcinoma. Prior Aimee-en-Y gastric bypass surgery and prior cholecystectomy. Signed: Irving Sena MDReport Verified Date/Time: 05/17/2018 16:29:27 Reading Location: [facility] B1 C013X Ortho Consult Reading Room Electronically signed by: IRVING SENA M.D. on 2017 04:29 [id number] 10:08:00 Test Item Value Reference Range Comments FERRITIN (BEAKER) (test qvqx=797) 11 ng/mL 5-275 IRON, TIBC, % SAT. (WITHOUT FERRITIN)2018-05-17 09:48:00 Test Item Value Reference Range Comments IRON (BEAKER) (test etns=564) 23 ug/dL 40-160 TOTAL IRON BINDING CAPACITY (BEAKER) (test 436 ug/dL 250-450 ayjp=990) IRON % SATURATION (2) (BEAKER) (test vexk=8524) 5 % 20-55 RAPID DRUG SCREEN, [id number] 09:04:00 Test Item Value Reference Range Comments BARBITURATE URINE (BEAKER) (test ezvp=937) Negative Negative BENZODIAZEPINE SCREEN URINE (BEAKER) (test Negative Negative chrv=097) COCAINE (METAB.) SCREEN (BEAKER) (test mogo=3816) Negative Negative METHADONE SCREEN (BEAKER) (test vvhn=1005) Negative Negative OPIATE SCREEN URINE (BEAKER) (test kqhn=247) Positive Negative CANNABINOID SCREEN URINE (BEAKER) (test rfky=432) Negative Negative AMPH/METHAMPH SCREEN (BEAKER) (test ubut=0046) Negative Negative PHENCYCLIDINE SCREEN URINE (BEAKER) (test xyoj=641) Negative Negative OXYCODONE SCREEN URINE (BEAKER) (test bzfm=0396) Negative Negative DRUG CUTOFF CONC.Cocaine 300 ng/mL Cannabinoid 50 ng/mL Benzodiazepine 200 ng/mLBarbiturate 200 ng/ mLPhencyclidine 25 ng/mLOpiate 300 ng/mLMethadone 300 ng/mLAmphetamine/ 1000 ng/mL MethamphetamineOxycodone 300 ng/mLThis assay provides an unconfirmed qualitative test result for the clinical management of patients in emergency situations. Chain of custody not maintained. Some ikgn-eti-otqvyzb medications, as well as adulterants, may cause inaccurate results. Clinical correlation should be applied. A more comprehensive drug screen or confirmation of a detected drug may be performed upon request.CBC W/PLT COUNT & AUTO [id number] 06:17:00 Test Item Value Reference Range Comments WHITE BLOOD CELL COUNT 4.8 K/ L 3.5-10.5 (BEAKER) (test lmmr=900) RED BLOOD CELL COUNT (BEAKER) 4.03 M/ L 3.93-5.22 (test pyif=312) HEMOGLOBIN (BEAKER) (test 7.4 GM/DL 11.2-15.7 aakz=684) HEMATOCRIT (BEAKER) (test 26.1 % 34.1-44.9 lmpl=852) MEAN CORPUSCULAR VOLUME 64.8 fL 79.4-94.8 (BEAKER) (test ddhp=395) MEAN CORPUSCULAR HEMOGLOBIN 18.4 pg 25.6-32.2 (BEAKER) (test qajn=900) MEAN CORPUSCULAR HEMOGLOBIN 28.4 GM/DL 32.2-35.5 CONC (BEAKER) (test rejr=920) RED CELL DISTRIBUTION WIDTH 26.2 % 11.7-14.4 (BEAKER) (test dnbw=364) PLATELET COUNT (BEAKER) (test 201 K/CU MM 150-450 uwcj=121) MEAN PLATELET VOLUME (BEAKER) fL 9.4-12.3 Unable to report due to (test dmpx=096) abnormal Platelet population distribution. NUCLEATED RED BLOOD CELLS 0 /100 WBC 0-0 (BEAKER) (test daqn=005) NEUTROPHILS RELATIVE PERCENT 46 % (BEAKER) (test fyhz=928) LYMPHOCYTES RELATIVE PERCENT 40 % (BEAKER) (test miry=429) MONOCYTES RELATIVE PERCENT 8 % (BEAKER) (test mnwz=452) EOSINOPHILS RELATIVE PERCENT 4 % (BEAKER) (test gtqv=955) BASOPHILS RELATIVE PERCENT 1 % (BEAKER) (test gdiu=220) NEUTROPHILS ABSOLUTE COUNT 2.20 K/ L 1.56-6.13 (BEAKER) (test iolp=310) LYMPHOCYTES ABSOLUTE COUNT 1.91 K/ L 1.18-3.74 (BEAKER) (test aifg=031) MONOCYTES ABSOLUTE COUNT 0.40 K/ L 0.24-0.36 (BEAKER) (test aqfq=251) EOSINOPHILS ABSOLUTE COUNT 0.20 K/ L 0.04-0.36 (BEAKER) (test hriu=793) BASOPHILS ABSOLUTE COUNT 0.03 K/ L 0.01-0.08 (BEAKER) (test sqtv=520) IMMATURE GRANULOCYTES-RELATIVE 0 % 0-1 PERCENT (BEAKER) (test ceog=3690) HEPATIC FUNCTION [id number] 06:10:00 Test Item Value Reference Range Comments TOTAL PROTEIN (BEAKER) (test oscy=088) 5.1 gm/dL 6.0-8.3 ALBUMIN (BEAKER) (test lesx=8680) 3.1 g/dL 3.5-5.0 BILIRUBIN TOTAL (BEAKER) (test nefz=207) 0.4 mg/dL 0.2-1.2 BILIRUBIN DIRECT (BEAKER) (test doac=763) 0.2 mg/dL 0.1-0.5 ALKALINE PHOSPHATASE (BEAKER) (test jzjl=073) 545 U/L 40-150 AST (SGOT) (BEAKER) (test lbrk=738) 192 U/L 5-34 ALT (SGPT) (BEAKER) (test irps=649) 150 U/L 6-55 BASIC METABOLIC [id number] 06:10:00 Test Item Value Reference Range Comments SODIUM (BEAKER) (test 138 meq/L 136-145 wwxk=996) POTASSIUM (BEAKER) (test 3.7 meq/L 3.5-5.1 vnsn=713) CHLORIDE (BEAKER) (test 105 meq/L 98-107 ssmv=407) CO2 (BEAKER) (test 27 meq/L 22-29 etxt=604) BLOOD UREA NITROGEN 9 mg/dL 7-21 (BEAKER) (test qzar=660) CREATININE (BEAKER) (test 0.53 mg/dL 0.57-1.25 tnbo=880) GLUCOSE RANDOM (BEAKER) 78 mg/dL 70-105 (test kjgi=601) CALCIUM (BEAKER) (test 8.5 mg/dL 8.4-10.2 xrvt=896) EGFR (BEAKER) (test 127 mL/min/1.73 sq m ESTIMATED GFR IS NOT xilv=7979) ACCURATE CREATININE CLEARANCE IN PREDICTING GLOMERULAR FILTRATION RATE. ESTIMATED GFR IS NOT APPLICABLE FOR DIALYSIS PATIENTS. PROTHROMBIN TIME/[id number] 05:55:00 Test Item Value Reference Range Comments PROTIME (BEAKER) (test ahjj=798) 13.3 seconds 11.7-14.7 INR (BEAKER) (test hxsm=818) 1.0 <=5.9 RECOMMENDED COUMADIN/WARFARIN INR THERAPY RANGESSTANDARD DOSE: 2.0 - 3.0 Includes: PROPHYLAXIS forvenous thrombosis, systemic embolization; TREATMENT for venous thrombosis and/or pulmonary embolus.HIGH RISK: Target INR is 2.5-3.5 for patients with mechanical heart valves.[id number] 18:19:00 Test Item Value Reference Range Comments MAGNESIUM (BEAKER) (test uxod=105) 2.1 mg/dL 1.6-2.6 COMPREHENSIVE METABOLIC [id number] 18:19:00 Test Item Value Reference Range Comments TOTAL PROTEIN (BEAKER) 6.0 gm/dL 6.0-8.3 (test ewks=293) ALBUMIN (BEAKER) (test 3.7 g/dL 3.5-5.0 iwze=1067) ALKALINE PHOSPHATASE 559 U/L 40-150 (BEAKER) (test qkbn=273) BILIRUBIN TOTAL (BEAKER) 0.3 mg/dL 0.2-1.2 (test ylcs=693) SODIUM (BEAKER) (test 138 meq/L 136-145 zznn=968) POTASSIUM (BEAKER) (test 4.3 meq/L 3.5-5.1 smoh=423) CHLORIDE (BEAKER) (test 104 meq/L 98-107 duiv=598) CO2 (BEAKER) (test 24 meq/L 22-29 dskj=803) BLOOD UREA NITROGEN 14 mg/dL 7-21 (BEAKER) (test uuju=440) CREATININE (BEAKER) (test 0.67 mg/dL 0.57-1.25 kecc=047) GLUCOSE RANDOM (BEAKER) 101 mg/dL 70-105 (test jplo=252) CALCIUM (BEAKER) (test 8.7 mg/dL 8.4-10.2 rhcb=558) AST (SGOT) (BEAKER) (test 184 U/L 5-34 wyhq=622) ALT (SGPT) (BEAKER) (test 171 U/L 6-55 tamm=768) EGFR (BEAKER) (test 97 mL/min/1.73 sq m ESTIMATED GFR IS NOT ifcn=0912) ACCURATE CREATININE CLEARANCE IN PREDICTING GLOMERULAR FILTRATION RATE. ESTIMATED GFR IS NOT APPLICABLE FOR DIALYSIS PATIENTS. [id number] 18:19:00 Test Item Value Reference Range Comments LIPASE (BEAKER) (test fdld=581) 24 U/L 8-78 URINALYSIS [id number] 18:17:00 Test Item Value Reference Range Comments RBC UA (BEAKER) (test lpwt=630) 2 /HPF WBC UA (BEAKER) (test iarx=844) 4 /HPF MUCUS (BEAKER) (test scno=2768) Many SQUAMOUS EPITHELIAL (BEAKER) (test glga=727) 2 /HPF URINALYSIS WITH MICROSCOPIC IF [id number] 18:16:00 Test Item Value Reference Range Comments COLOR (BEAKER) (test sbpb=686) Yellow CLARITY (BEAKER) (test dhfe=077) Clear SPECIFIC GRAVITY UA (BEAKER) (test nhuh=174) 1.027 1.001-1.035 PH UA (BEAKER) (test eiaq=164) 5.5 5.0-8.0 PROTEIN UA (BEAKER) (test bxet=742) 20 mg/dL Negative GLUCOSE UA (BEAKER) (test qkdp=473) Negative Negative KETONES UA (BEAKER) (test yakd=505) Negative Negative BILIRUBIN UA (BEAKER) (test risa=293) Negative Negative BLOOD UA (BEAKER) (test qvri=111) Moderate Negative NITRITE UA (BEAKER) (test srns=583) Negative Negative LEUKOCYTE ESTERASE UA (BEAKER) (test mnux=569) Small Negative UROBILINOGEN UA (BEAKER) (test bpku=270) 3.0 mg/dL 0.2-1.0 SOURCE(BEAKER) (test dbgy=8947) CBC W/PLT COUNT & AUTO [id number] 18:01:00 Test Item Value Reference Range Comments WHITE BLOOD CELL COUNT 7.8 K/ L 3.5-10.5 (BEAKER) (test rwhi=315) RED BLOOD CELL COUNT (BEAKER) 4.17 M/ L 3.93-5.22 (test mqpg=529) HEMOGLOBIN (BEAKER) (test 8.0 GM/DL 11.2-15.7 zsbm=355) HEMATOCRIT (BEAKER) (test 26.6 % 34.1-44.9 gama=912) MEAN CORPUSCULAR VOLUME 63.8 fL 79.4-94.8 (BEAKER) (test syfj=870) MEAN CORPUSCULAR HEMOGLOBIN 19.2 pg 25.6-32.2 (BEAKER) (test ljbl=266) MEAN CORPUSCULAR HEMOGLOBIN 30.1 GM/DL 32.2-35.5 CONC (BEAKER) (test uvcx=788) RED CELL DISTRIBUTION WIDTH 26.1 % 11.7-14.4 (BEAKER) (test inyg=264) PLATELET COUNT (BEAKER) (test 283 K/CU MM 150-450 tile=959) MEAN PLATELET VOLUME (BEAKER) fL 9.4-12.3 Unable to report due to (test tpbg=522) abnormal Platelet population distribution. NUCLEATED RED BLOOD CELLS 0 /100 WBC 0-0 (BEAKER) (test qzcw=380) NEUTROPHILS RELATIVE PERCENT 61 % (BEAKER) (test oefh=081) LYMPHOCYTES RELATIVE PERCENT 26 % (BEAKER) (test rsus=294) MONOCYTES RELATIVE PERCENT 8 % (BEAKER) (test penv=321) EOSINOPHILS RELATIVE PERCENT 5 % (BEAKER) (test ylyw=060) BASOPHILS RELATIVE PERCENT 0 % (BEAKER) (test xovh=840) NEUTROPHILS ABSOLUTE COUNT 4.72 K/ L 1.56-6.13 (BEAKER) (test lrmn=859) LYMPHOCYTES ABSOLUTE COUNT 2.01 K/ L 1.18-3.74 (BEAKER) (test dhlh=317) MONOCYTES ABSOLUTE COUNT 0.63 K/ L 0.24-0.36 (BEAKER) (test unlv=852) EOSINOPHILS ABSOLUTE COUNT 0.35 K/ L 0.04-0.36 (BEAKER) (test qygo=638) BASOPHILS ABSOLUTE COUNT 0.03 K/ L 0.01-0.08 (BEAKER) (test dujs=679) IMMATURE GRANULOCYTES-RELATIVE 0 % 0-1 PERCENT (BEAKER) (test nfzp=5341) ANKLE 3 [id number] 20:42:[address] [id number] IMAGING REPORTPatient Name: BABATUNDE CHAMBERS ADate of Service: [id number]: 42 Sex: F Order #: [id number] [facility] 1975 X-[facility] Number: [id number] Record Number: [id number] Hospital Number: [id number] Physician: HO, COLIN SOrdering Physician : ELAINE TEIXEIRA ankle 3 views 8:45 PMHISTORY: Twisted ankle, ankle injury and pain.FINDINGS:There is no acute fracture or dislocation. Ankle mortise is preserved.There are no lytic or blastic bone lesions.There are no definite osseous erosions or bony destruction detected.There is no radiopaque foreign body.There is no soft tissue gas present.IMPRESSION:No acute bony abnormality is identified.Electronically Signed By: Eitan Gao M.D., 03/19/2018 8:39 PMLegally authenticated by EREN BURDICK 2018-03-19 20:39:41US RENAL [id number] 04:43:[place] [id number] IMAG[place] REPORTPatient Name: BABATUNDE CHAMBERS ADate of Service: [id number]: 41 Sex: F Order #: [id number] Room: ERSDOB : 1975 X-Ray Number: [id number] Record Number: [id number] Hospital Number: [id number] Physician: MARY CHUNGOrderprov[facility] Physician : Duane CHUNGateral renal and bladder ultrasound.Clinical history: Right flank pain for one day.Comparison studies: CT of the abdomen and pelvis dated 02/09/2017.Findings:Right kidney measures 12.1 cm in length and left kidney measures 10.3 cm inlength. Bilateral renal cortices are normal in thickness and echogenicity.No renal masses, calculi, cysts, or hydronephrosis are seen in eitherkidney. The bladder evaluation is limited because it is almost empty.Electronically Signed By: Dionisio Salcido M.D., 02/27/2017 4:41 AMLegally authenticated by BRANDI MORAES V 2017-02-27 04:41:36CT ABDOMEN/ PELVIS [id number] 23:27:[address] [id number] IMAGING REPORTPatient Name: BABATUNDE CHAMBERS ADate of Service: [id number]: 41 Sex: F Order #: [id number] Room: ERSDOB : 1975 X-Ray Number: [id number] Record Number: [id number] Hospital Number: [id number] Physician: TYESHA BLANK TANOrdering Physician: ARCELIA DARNELL abdomen and pelvis.History: Nausea, abdominal pain.Technique: IV contrast enhanced CT axial images of the abdomen and pelviswith sagittal and coronal reformatted images were reviewed.This CT exam was performed using one or more of the following dosereduction techniques: Automated exposure control, adjustment of the MAand/or KV according to patient size or use of iterative reconstructiontechnique.Comparison: May 05, 2012.Findings:Images of the lower lungs and mediastinum demonstrate no specific defects.There is mild splenomegaly. Spleen measures 15.4 cm.There is evidence of gastric bypass.The solid large organs of the upper abdomen appear focally normal.The gallbladder is surgically absent.There is no significant retroperitoneal adenopathy or fluid collectionsdepicted.Small bowel loops appear normal.Large bowel loops demonstrate only scattered fecal debris.The appendix is surgically absent.The urinary bladder appears normal. There is a small amount of pelvic freefluid noted.Impression:Mild splenomegaly. No other specificacute appearing abdominalabnormalities.Electronically Signed By: Elmer Pedroza M.D., 2016 11:25 Kaitlyn authenticated by SRI Dior 2017-02-09 23:25:01
--- OUTSIDE RECORDS SUMMARY | 2019-12-17 12:19 | XMS REPORT | Continuity of Care Document ---
:1975 Author Organization [facility]IS Care Team Providers Name Role Phone PCP, NO Primary Care Physician Unavailable Allergies, Adverse Reactions, Alerts Allergen Type Severity Reaction Last Verified Status Updated Penicillin Allergy Unknown February 21, Active 2018 Prochlorperazine Allergy Unknown September No Active 2018 Nitrofurantoin Allergy Unknown February 21, No Active 2019 Sumatriptan Allergy Unknown February 21, No Active 2018 Metoclopramide Allergy Unknown February 21, No Active 2019 Eggs Allergy Unknown February 21, No Active 2019 SEAFOOD Allergy Unknown September No Active 2018 Medications Medication Status Dose Units Route Sig Qty Days Start End Instructions Date Date Acetaminophen/H Active 1 tab Every 6 08 October ydrocodone Hours 2018 5:15am Ciprofloxacin Active 500 mg Every 12 13 October Hours 2018 8:44am Naproxen Active 500 mg Every 12 September 5:15am Ondansetron Hcl Active 4 mg Every 8 08 October Hours as 2018 for 8:44am Nausea / Vomiting Tamsulosin Hcl Active 0.4 mg Daily October 13, 2019 5:15am Problems Active Problems Medical Problem Onset Date Status Acute flank pain Active Renal colic on right side Active Inactive/Resolved Problems Medical Problem Onset Date Status Finger injury Resolved Fracture of middle phalanx of Resolved right ring finger Urinary tract infection Resolved Flank pain Resolved History of kidney stones Resolved Flank pain Resolved Procedures No procedure information available. Relevant Diagnostic Tests and/or Laboratory Data Laboratory Results Test Date/Time Result Interpretation Reference Result Performing Range Comment Site White Blood Count September 6.1 4.6-10.2 CARLUS [facility], [address] 2018 10*3/uL Eleonora Luna [place] [address] 6:43pm Red Blood Count September 4.25 4.2-5.4 NIKHIL [facility], [address] 2018 10*6/[place] [address] 6:43pm Hemoglobin November 7.8 g/dL 12.0-16.0 NIKHIL [facility], [address] [place] [address] 6:43pm Hematocrit September 26.4 % 37.0-47.0 NIKHIL [facility], [address] [place] [address] 6:43pm Mean Corpuscular November 62.1 fL 80-97 NIKHIL [facility], [address] Volume 2018 [place] [address] 6:43pm Mean Corpuscular November 18.4 pg 27.0-31.2 NIKHIL [facility] , [address] Hemoglobin 2018 [place] [address] 6:43pm Mean Corpuscular November 29.5 g/dL 31.8-35.4 NIKHIL [facility], [address] Hemoglobin Concent 2018 [place] [address] 6:43pm Red Cell November 21.8 % 12.5-18.0 NIKHIL [facility], [address] Distribution Width 2018 [place] [address] 6:43pm Platelet Count September 324 142-424 NIKHIL [facility], [address] 2018 10*3/[place] [address] 6:43pm Nucleated Red November 0.0 % NIKHIL [facility], [address] Blood Cells % 2018 [place] [address] 6:43pm Neutrophils % September 53.0 % 37-80 NIKHIL [facility], [address] (Manual) 2018 [place] [address] 6:43pm Neutrophils # September 3.2 1.8-7.7 NIKHIL [facility], [address] (Manual) 2018 10*3/[place] [address] 6:43pm Lymphocytes % September 39.0 % 25-40 NIKHIL [facility], [address] (Manual) 2018 [place] [address] 6:43pm Monocytes % November 6.0 % 1-15 NIKHIL [facility], [address] (Manual) 2018 [place] [address] 6:43pm Basophils % November 2.0 % 0-3 NIKHIL [facility], [address] (Manual) 2018 [place] [address] 6:43pm Differential Total September 100 NIKHIL [facility], [address] Cells Counted 2018 [facility] [address] 6:43pm Platelet Estimate November Normal NIKHIL [facility], [address] 2018 [facility] [address] 6:43pm Red Blood Cell November ABNORMAL NIKHIL [facility], [address] Morphology 2018 [facility] [address] 6:43pm Anisocytosis September 2+ NIKHIL [facility], [address] 2018 [facility] [address] 6:43pm Microcytosis November 3+ NIKHIL [facility], [address] 2018 [facility] [address] 6:43pm Polychromasia November 1+ NIKHIL [facility], [address] [place] [address] 6:43pm Hypochromasia September 2+ NIKHIL [facility], [address] 2018 [facility] [address] 6:43pm Schistocytes September 1+ NIKHIL [facility], [address] 2018 [facility] [address] 6:43pm Elliptocytes September 1+ NIKHIL [facility], [address] 2018 [facility] [address] 6:43pm Urine Source November Cl Catch NIKHIL [facility], [address] 2018 Mid [facility] [address] 4:14pm Stream Urine Color November Yellow Yellow NIKHIL [facility], [address] 2018 [facility] [address] 4:14pm Urine Appearance November Slightly Clear NIKHIL [facility], [address] 2018 Cloudy [facility] [address] 4:14pm Urine pH September 7.0 [pH] 5.0-9.0 NIKHIL [facility], [address] 2018 [facility] [address] 4:14pm Urine Specific November 1.010 1.000-1.03 NIKHIL [facility], [address] Moosic 2018 0 [facility] [address] 4:14pm Urine Protein November Trace Negative NIKHIL [facility], [address] 2018 mg/dL [facility] [address] 4:14pm Urine Glucose (UA) September Normal Normal NIKHIL [facility], [address] 2018 mg/dL [facility] [address] 4:14pm Urine Ketones November Trace Negative NIKHIL [facility], [address] 2018 mg/dL [facility] [address] 4:14pm Urine Occult Blood September 250 /uL Negative NIKHIL [facility] , [address] 2018 [facility] [address] 4:14pm Urine Nitrite September Negative Negative NIKHIL [facility], [address] 2018 [facility] [address] 4:14pm Urine Bilirubin September Negative Negative NIKHIL [facility], [address] 2018 mg/dL [facility] [address] 4:14pm Urine Urobilinogen September 4.0 mg/dL Normal NIKHIL [facility] , [address] 2018 [facility] [address] 4:14pm Urine Leukocyte September 100 /uL Negative NIKHIL [facility], [address] Esterase 2018 [facility] [address] 4:14pm Urine RBC September 20-30 0-2 [facility] [address] 2018 /[HPF] [facility] [address] 4:14pm Urine WBC September 5-10 0-5 NIKHIL [facility], [address] 2018 /[HPF] [facility] [address] 4:14pm Urine Squamous September 1+ Few NIKHIL [facility], [address] Epithelial Cells 2018 /[LPF] [facility] [address] 4:14pm Urine Bacteria September 1+ Few Few/HPF NIKHIL [facility], [address] 2018 /[HPF] [facility] [address] 4:14pm Urine Culture September No, NIKHIL [facility], [address] Indicated 18th, 2019 Criteria [facility] [address] 4:14pm Not Met Sodium Level September 138 135-145 [facility] [address] 2018 mmol/L [facility] [address] 6:43pm Potassium Level September 4.2 3.6-5.2 [facility], [address] 2018 mmol/[place] [address] 6:43pm Chloride Level September 104 100-108 [facility], [address] 2018 mmol/L [facility] [address] 6:43pm Carbon Dioxide September 29 mmol/L 21-32 [facility], [address] Level 2018 [facility] [address] 6:43pm Blood Urea September 12 mg/dL -18 [facility], [address] Nitrogen 2018 [facility] [address] 6:43pm Creatinine September 0.67 0.55-1.02 [facility], [address] 2018 mg/dL [facility] [address] 6:43pm Estimat Glomerular November > 60 >60 [facility], [address] Filtration Rate 2018 DESCRIPTION [facility] [address] 6:43pm GLOMERULAR FILTRATION RATE NORMAL >60 KIDNEY DISEASE 15-60 KIDNEY FAILURE <15 BUN/Creatinine September 17.91 [facility], [address] Ratio 2018 {ratio} [place] [address] 6:43pm Glucose Level September 93 mg/dL 70-110 [facility], [address] 2018 [facility] [address] 6:43pm Calcium Level September 7.8 mg/dL 8.8-10.5 [facility], [address] 2018 [facility] [address] 6:43pm Total Bilirubin September 0.1 mg/dL 0.0-1.0 [facility], [address] 2018 [facility] [address] 6:43pm Aspartate Amino November 22 U/L 15-37 [facility], [address] Transf (AST/SGOT) 2018 [facility] [address] 6:43pm Alanine September 16 U/L 12-78 [facility], [address] Aminotransferase 2018 [place] [address] (ALT/SGPT) 6:43pm Total Protein September 5.9 g/dL 6.4-8.2 [facility], [address] [place] [address] 6:43pm Albumin September 2.9 g/dL 3.4-5.0 [facility], [address] [place] [address] 6:43pm Globulin September 3.0 g/dL 2.3-3.5 [facility], [address] [place] [address] 6:43pm Albumin/Globulin September 0.966 1.1-1.8 [facility], [address] Ratio 2018 {ratio} [place] [address] 6:43pm Alkaline September 90 U/L 46-116 [facility], [address] Phosphatase 2018 [place] [address] 6:43pm Health Concerns Health Concerns may be documented in an alternate section. Advance Directives Advance Directive Response Recorded Date/Time Does the Patient have an No October 13, 2019 4:37am Advance Directive? Chief Complaint and Reason for Visit Chief Complaint Urogenital Problems - Female Reason for Visit Current UTI [id number] Encounters Encounter Location(s) Arrival/Admit Date Discharge/Depart Date Provider(s) Departed [facility] October 11October 11, 2019 [facility] 2018 3:06pm 7:00pm TEOFILO GORE MD Departed [facility] October 09October 09, 2019 DANGELO LITTLE MD [facility] Room [facility] 2018 12[facility] ALEX TALBERT, Emergency Room [facility] 2018 8:20am 8:52am ALMA Cullen MD Departed [facility] October 07October 07, 2019 SAMAN VALENCIA Emergency Room [facility] 2018 6:23pm 6:49pm Recent Diagnosis Onset Date Flank pain Assessments Diagnosis Onset Date Resolution Status Flank pain Functional Status Observation Response Date Recorded Onset Within the Last 7 Days No Problem Identified October 08, 2019 8:31am Goals Goals may be documented in an alternate section. Immunizations No Immunization Information Available Mental Status No Mental Status Information Available Medical Equipment No Medical Equipment Information available Insurance Providers Guarantor Babatunde Chambers Address [address] [place] [address] Contact Info. Home Phone: Payer Policy Id Coverage Id Subscriber's Subscriber Effective Expiration Name Id Date Date Tx Patient [id number] Babatunde Chambers Insurance Plan of Treatment PT WAS ADVISED OF PHYSICIAN SHIFT CHANGE AND TRANSITION OF CARE THAT WOULD OCCUR AT 6PM. PT ELOPED PER RN JUST BEFORE 7PM. SHE DID NOT AWAIT FURTHER CARE BY NIGHT DOCTOR, AND DID NOT INFORM ME SHE WAS LEAVING. Future Tests Future scheduled test information is [...] of Observation Smokes tobacco daily (finding) October 13, 2019 5:15am Observation Status Observation Response Date of Response Hx Tobacco Use Yes October 13, 2019 5:15am Assigned Sex Female Vital Signs Vital Reading Result Collection Date/Time Weight 150 [lb_av] October 11, 2019 3:19pm BMI (Body Mass Index) 25.7 kg/m2 October 11, 2019 3:19pm
--- OUTSIDE RECORDS SUMMARY | 2019-12-17 12:19 | XMS REPORT | Continuity of Care Document ---
:1975 Author Organization [facility] HCIS Care Team Providers Name Role [...] mg Daily October 13, 2019 5:15am Problems No problem information available. Procedures No procedure information available. Relevant Diagnostic Tests and/or Laboratory Data Laboratory Results Test Date/Time Result Interpretation Reference Result Performing Range Comment Site White Blood Count September 6.1 4.6-10.2 [facility], [address] 2018 10*3/[place] [address] 6:43pm Red Blood Count September 4.25 4.2-5.4 [facility] [address] 2018 10*6/[place] [address] 6:43pm Hemoglobin September 7.8 g/dL 12.0-16.0 NIKHIL Anderson [facility], [address] 2018 [place] [address] 6:43pm Hematocrit November 26.4 % 37.0-47.0 NIKHIL Anderson [facility], [address] [place] [address] 6:43pm Mean Corpuscular November 62.1 fL 80-97 NIKHIL [facility], [address] Volume 2018 [place] [address] 6:43pm Mean Corpuscular November 18.4 pg 27.0-31.2 NIKHIL Anderson [facility] , [address] Hemoglobin 2018 [place] [address] 6:43pm Mean Corpuscular November 29.5 g/dL 31.8-35.4 NIKHIL Anderson [facility], [address] Hemoglobin Concent 2018 [place] [address] 6:43pm Red Cell November 21.8 % 12.5-18.0 NIKHIL Anderson [facility], [address] Distribution Width 2018 [place] [address] 6:43pm Platelet Count September 324 142-424 NIKHIL Anderson [facility], [address] 2018 10*3/[place] [address] 6:43pm Nucleated Red November 0.0 % NIKHIL Anderson [facility], [address] Blood Cells % 2018 [place] [address] 6:43pm Neutrophils % September 53.0 % 37-80 NIKHIL Anderson [facility], [address] (Manual) 2018 [place] [address] 6:43pm Neutrophils # September 3.2 1.8-7.7 NIKHIL Anderson [facility], [address] (Manual) 2018 10*3/[place] [address] 6:43pm Lymphocytes % September 39.0 % 25-40 NIKHIL Anderson [facility], [address] (Manual) 2018 [place] [address] 6:43pm Monocytes % September 6.0 % 1-15 NIKHIL Anderson [facility], [address] (Manual) 2018 [place] [address] 6:43pm Basophils % September 2.0 % 0-3 NIKHIL Anderson [facility], [address] (Manual) 2018 [place] [address] 6:43pm Differential Total September 100 NIKHIL Anderson [facility], [address] Cells Counted 2018 [place] [address] 6:43pm Platelet Estimate November Normal NIKHIL Anderson [facility], [address] [place] [address] 6:43pm Red Blood Cell November ABNORMAL NIKHIL Anderson [facility], [address] Morphology 2018 [place] [address] 6:43pm Anisocytosis November 2+ NIKHIL Anderson [facility], [address] [place] [address] 6:43pm Microcytosis September 3+ NIKHIL Anderson [facility], [address] [place] [address] 6:43pm Polychromasia September 1+ NIKHIL Andesron [facility], [address] [place] [address] 6:43pm Hypochromasia September 2+ NIKHIL Anderson [facility], [address] [place] [address] 6:43pm Schistocytes September 1+ NIKHIL Anderson [facility], [address] [place] [address] 6:43pm Elliptocytes September 1+ NIKHIL Anderson [facility], [address] [place] [address] 6:43pm Urine Source November Cl Catch NIKHIL Anderson [facility], [address] 2018 [place] [address] 4:14pm Stream Urine Color November Yellow Yellow NIKHIL Anderson [facility], [address] [place] [address] 4:14pm Urine Appearance September Slightly Clear NIKHIL Anderson [facility], [address] [facility] [address] 4:14pm Urine pH September 7.0 [pH] 5.0-9.0 NIKIHL Anderson [facility], [address] [place] [address] 4:14pm Urine Specific November 1.010 1.000-1.03 NIKHIL Anderson [facility], [address] [place] 2018 0 [place] [address] 4:14pm Urine Protein September Trace Negative NIKHIL Anderson [facility], [address] 2018 mg/dL [facility] [address] 4:14pm Urine Glucose (UA) September Normal Normal NIKHIL Anderson [facility], [address] 2018 mg/dL [facility] [address] 4:14pm Urine Ketones September Trace Negative NIKHIL Anderson [facility], [address] 2018 mg/dL [facility] [address] 4:14pm Urine Occult Blood September 250 /uL Negative NIKHIL Anderson [facility] , [address] 2018 [facility] [address] 4:14pm Urine Nitrite September Negative Negative NIKHIL Anderson [facility], [address] 2018 [facility] [address] 4:14pm Urine Bilirubin September Negative Negative NIKHIL Anderson [facility], [address] 2018 mg/dL [facility] [address] 4:14pm Urine Urobilinogen September 4.0 mg/dL Normal NIKHIL Anderson [facility] , [address] 2018 [facility] [address] 4:14pm Urine Leukocyte September 100 /uL Negative NIKHIL Anderson [facility], [address] Ester[address] 2018 [facility] [address] 4:14pm Urine RBC September 20-30 0-2 NIKHIL Anderson [facility], [address] 2018 /[HPF] [facility] [address] 4:14pm Urine WBC September 5-10 0-5 NIKHIL Anderson [facility], [address] 2018 /[HPF] [facility] [address] 4:14pm Urine Squamous September 1+ Few NIKHIL Anderson [facility], [address] Epithelial Cells 2018 /[LPF] [facility] [address] 4:14pm Urine Bacteria September 1+ Few Few/HPF NIKHIL Anderson [facility], [address] 2018 /[HPF] [facility] [address] 4:14pm Urine Culture September No, NIKHIL Anderson [facility], [address] Indicated [address] [facility] [address] 4:14pm Not Met Sodium Level September 138 135-145 [facility], [address] 2018 mmol/L [facility] [address] 6:43pm Potassium Level September 4.2 3.6-5.2 [facility], [address] 2018 mmol/[place] [address] 6:43pm Chloride Level September 104 100-108 [facility], [address] 2018 mmol/[place] [address] 6:43pm Carbon Dioxide September 29 mmol/L 21-32 [facility], [address] Level 2018 [facility] [address] 6:43pm Blood Urea September 12 mg/dL 7-18 [facility], [address] Nitrogen 2018 [facility] [address] 6:43pm Creatinine September 0.67 0.55-1.02 [facility], [address] 2018 mg/[place] [address] 6:43pm Estimat Glomerular November > 60 >60 [facility], [address] Filtration Rate [address] [facility] [address] 6:43pm GLOMERULAR FILTRATION RATE NORMAL >60 KIDNEY DISEASE 15-60 KIDNEY FAILURE <15 BUN/Creatinine September 17.91 7-18 [facility], [address] Ratio 2018 {ratio} [place] [address] 6:43pm Glucose Level September 93 mg/dL 70-110 [facility], [address] 2018 [facility] [address] 6:43pm Calcium Level September 7.8 mg/dL 8.8-10.5 [facility], [address] 2018 [facility] [address] 6:43pm Total Bilirubin September 0.1 mg/dL 0.0-1.0 [facility], [address] 2018 [facility] [address] 6:43pm Aspartate Amino November 22 U/L 15-37 [facility], [address] Transf (AST/SGOT) 2018 [facility] [address] 6:43pm Alanine September 16 U/L 12-78 [facility], [address] Amin[address] 2018 [facility] [address] (ALT/SGPT) 6:43pm Total Protein September 5.9 g/dL 6.4-8.2 NIKHIL Anderson [facility], [address] 2018 [place] [address] 6:43pm Albumin September 2.9 g/dL 3.4-5.0 NIKHIL Anderson [facility], [address] 2018 [place] [address] 6:43pm Globulin September 3.0 g/dL 2.3-3.5 NIKHIL Anderson [facility], [address] 2018 [place] [address] 6:43pm Albumin/Globulin September 0.966 1.1-1.8 [facility] Justin [facility], [address] Ratio 2018 {ratio} [place] [address] 6:43pm Alkaline September 90 U/L 46-116 [facility], [address] Phosphatase 2018 [place] [address] 6:43pm Health Concerns Health Concerns may be documented in an alternate section. Advance Directives Advance Directive Response Recorded Date/Time Does the Patient have an No October 13, 2019 4:37am Advance Directive? Chief Complaint and Reason for Visit Chief Complaint Flank Pain Reason for Visit [id number] Encounters Encounter Location(s) Arrival/Admit Date Discharge/Depart Date Provider(s) Departed [facility] October 13October 13, 2019 [facility] 2018 4:21am 5:46am TEOFILO GORE MD Departed [facility] October 11October 11, 2019 [facility] 2018 3:06pm 7:00pm TEOFILO GORE MD Departed [facility] October 09October 09, 2019 DANGELO LITTLE MD [facility] Room [facility] 2018 12:06pm 12:10pm Departed [facility] October 08October 08, 2019 ALEX TALBERT, [facility] 2018 8:20am 8:52am ALMA Cullen MD Departed [facility] October 07October 07, 2019 SAMAN VALENCIA [facility] 2018 6:23pm 6:49pm Assessments No Assessments Information Available Functional Status Observation Response Date Recorded Onset Within the Last 7 Days No Problem Identified October 08, 2019 8:31am Goals Goals may be documented in an alternate section. Immunizations No Immunization Information Available Mental Status No Mental Status Information Available Medical Equipment No Medical Equipment Information available Insurance Providers Guarantor PiotrBabatunde Address [address] [place] [address] Contact Info. Home Phone: Payer Policy Id Coverage Id Subscriber's Subscriber Effective Expiration Name Id Date Date Va Patient [id number] Babatunde Chambers Insurance Plan of Treatment Future Tests Future scheduled test information is unavailable Pending Tests Pending diagnostic test information is unavailable Future Visits Future appointment information is unavailable Referrals to Other Providers Reason for Referral Start Provider Provider Contact Provider Address Referral Date Information PCP, JAYSHREE CASH Work Phone: [phone] [place] [address] [place] [address] Future Procedures Future procedure information is unavailable Future Medications Future medication information is unavailable Patient Instructions Renal Colic Social History Smoking Status Status Date of Observation Smokes tobacco daily (finding) October 13, 2019 5:15am Observation Status Observation Response Date of Response Hx Tobacco Use Yes October 13, 2019 5:15am Assigned Sex Female Vital Signs Vital Reading Result Reference Range Collection Date/Time Body Temperature 98.2 [degF] (97.6 - 99.5) October 13, 2019 5:21am Heart Rate 97 /min (60 - 100) October 13, 2019 4:31am Heart Rate 94 /min October 13, 2019 5:21am Respiratory rate 16 /min (12 - 24) October 13, 2019 4:31am Respiratory rate 18 /min October 13, 2019 5:21am BP Systolic 108 mm[Hg] (100 - 140) October 13, 2019 4:31am BP Systolic 112 mm[Hg] October 13, 2019 5:21am BP Diastolic 77 mm[Hg] (60 - 90) October 13, 2019 4:31am BP Diastolic 74 mm[Hg] October 13, 2019 5:21am Weight 140 [lb_av] October 13, 2019 4:31am BMI (Body Mass Index) 24.0 kg/m2 October 13, 2019 4:31am
--- OUTSIDE RECORDS SUMMARY | 2019-12-17 12:20 | XMS REPORT | Continuity of Care Document ---
:[address] [facility] HCIS Care Team Providers Name Role Phone PCP, NO Primary Care Physician Unavailable Allergies, Adverse Reactions, Alerts Allergen Type Severity Reaction Last Verified Status Updated Penicillin Allergy Severe September No Active 2016 Tetanus vaccine Allergy Unknown September No Active 2016 Prochlorperazine Allergy Unknown September No Active 2016 Nitrofurantoin Allergy Unknown September No Active 2016 Sumatriptan Allergy Unknown September No Active 2016 Metoclopramide Allergy Mild September No Active 2016 Eggs Allergy Unknown September No Active 2016 Medications Medication Status Dose Units Route Sig Qty Days Start End Instructions Date Date Docusate Active 50 mg Daily 23 May Sodium 2018 3:14am Gabapentin Active 400 mg Three Times A Day Ondansetron Active 4 mg Every 12 04 September Hcl Hours as 7th, needed for 2017 Nausea / 6:51pm Vomiting Polyethylene Active 17 Daily as April Glycol needed for , Constipation 2018 3:14am Promethazine Active 25 mg Q4-6H Prn as 13 May Take 1 tablet by mouth every 4-6 hours as needed for nausea and Hcl needed for , vomiting. Nausea / 2019 Vomiting 3:14am Tramadol Hcl Active 50 mg Every 6 Hours 23 May as needed for , Pain 2017 8:46am Problems Active Problems Medical Problem Onset Date Status Bronchitis Active Chest pain, atypical Active Ankle fracture, right Active Toothache Active Dental caries Active Dental abscess Active Encounter for medical screening Active examination Has run out of medications Active Fibromyalgia [...] Active COPD exacerbation Active Aspiration pneumonia Active Acute upper respiratory infection, Active unspecified Inactive/Resolved Problems Medical Problem Onset Date Status [...] Group A August Negative Negative An order [facility], [address] Streptococcus [facility] [address] Screen 6:45pm Group A Culture has been reflexed as a result of a negative Strep Group A screening test. Microbiology Results Procedure Source Result Collection Result Result Performing Date/Time Date/Time Comment Site Group A Throat No Group A September 18August [facility] , [address] Streptococcus Strep 2019 6:45pm [place] [id number] Culture isolated 8:22am Health Concerns Health Concerns may be documented in an alternate section. Advance Directives Advance Directive Response Recorded Date/Time Does the Patient have an No September 18, 2019 8:24pm Advance Directive? Encounters Encounter Location(s) Arrival/Admit Date [facility]) [facility] [place] 2018 2:54pm 4:[facility] 18, 2019 September 18, 2019 RODOLFO NEVILLE [facility] [place] 7:20pm 10:14pm Joselin MORALES Assessments No Assessments Information Available Functional Status Observation Response Date Recorded Onset Within the Last 7 Days No Problem Identified September 18, 2019 8:24pm Goals Goals may be documented in an alternate section. Immunizations No Immunization Information Available Mental Status No Mental Status Information Available Medical Equipment No Medical Equipment Information available Insurance Providers Guarantor Babatunde Saldaña Day[place] Address [address] [place] [phone] Contact Info. Home Phone: Payer Policy Id Coverage Id Subscriber's Subscriber Effective Expiration Name Id Date Date Uninsured [id number] Babatunde Saldaña [id number] Tier 1 > Day[place] 400% Plan of Treatment Future Tests Future scheduled test information is unavailable Pending Tests Test Name Date ordered Urine Source October 12, 2019 3:47pm Urine Color October 12, 2019 3:47pm Urine Appearance October 12, 2019 3:47pm Urine pH October 12, 2019 3:47pm Urine Specific [place] October 12, 2019 3:47pm Urine Protein October 12, 2019 3:47pm Urine Glucose (UA) October 12, 2019 3:47pm Urine Ketones October 12, 2019 3:47pm Urine Occult Blood October 12, 2019 3:47pm Urine Nitrite October 12, 2019 3:47pm Urine Bilirubin October 12, 2019 3:47pm Urine Urobilinogen October 12, 2019 3:47pm Urine Leukocyte Esterase October 12, 2019 3:47pm Microscopic Urinalysis (T) October 12, 2019 3:47pm Urinalysis Comment October 12, 2019 3:47pm Future Visits Future appointment information is unavailable [...]
--- NOTE | 2019-12-17 13:26 | RAD REPORT ---
EXAM DESCRIPTION: CT - Head Brain Wo Cont - 12/17/2019 1:19 pm CLINICAL HISTORY: Headache;Dizziness Headache, drowsiness COMPARISON: No comparisons TECHNIQUE: All CT scans are performed using dose optimization technique as appropriate and may inclu de automated exposure control or mA/KV adjustment according to patient size. FINDINGS: No intracranial hemorrhage, hydrocephalus or extra-axial fluid collection.No areas of brai n edema or evidence of midline shift. The paranasal sinuses and mastoids are clear. The calvarium is intact. IMPRESSION: No acute intracranial abnormality.
[2019-12-17 13:43] LABS: BUN Blood Urea Nitrogen 9 mg/dL (7-18); Bicarbonate 26 mmol/L (21-32); Glucose Level 101 mg/dL (74-106); Magnesium 2.3 mg/dL (1.8-2.4); Sodium Level 140 mmol/L (136-145)
[2019-12-17] MEDS ORDERED: DIPHENHYDRAMINE 50 MG/ML VIAL ONE (13:47)
[2019-12-17] MEDS ORDERED: dexAMETHasone 10 MG/ML VIAL ONE (13:47)
[2019-12-17] MEDS ORDERED: MECLIZINE HCL 12.5 MG TAB ONE (13:48)
[2019-12-17] MEDS ORDERED: ONDANSETRON 4 MG/2 ML VIAL ONE (13:48)
[2019-12-17] MEDS ORDERED: KETOROLAC 30 MG/ML INJ ONE (13:48)
[2019-12-17] MEDS ORDERED: NA CHLORIDE 0.9% 1,000 ML ONE (13:48)
[2019-12-17 13:59] LABS: Absolute Lymphocytes (CBC) 2.7 K/uL (0.7-4.9); Hematocrit 28.3 % (36.0-45.0); Lymphocytes % 40.2 % (15.3-44.8)
[2019-12-17 14:09] LABS: Barbiturates POSITIVE (NEGATIVE); Benzodiazepines NEGATIVE (NEGATIVE); Cocaine NEGATIVE (NEGATIVE); METHAMPHETAM NEGATIVE (NEGATIVE); Methadone NEGATIVE (NEGATIVE); Opiates NEGATIVE (NEGATIVE); Phencyclidine NEGATIVE (NEGATIVE); THC Cannibis NEGATIVE (NEGATIVE)
[2019-12-17 14:20] LABS: Urine Blood NEGATIVE (NEG); Urine Glucose NEGATIVE (NEG); Urine Protein NEGATIVE (NEG); Urine Specific Gravity 1.015 (1.005-1.030); Urine pH 5.5 (5.0-7.0)
[2019-12-17 14:23] LABS: Anisocytosis 1+; Blood Morphology Comment NOTED (NOT SEEN); Hypochromasia 3+; Platelet Estimate ADEQ; Platelets, Giant PRESENT
--- NOTE | 2019-12-17 15:31 | EDPHYS ---
Physician Documentation [facility] Name: Moira Saldaña Age: 44 yrs Sex: Female : 1975 Arrival Date: 12/17/2019 Time: 12:17 Bed 23 Private MD: ED Physician Geovanny Esparza HPI: 12/17 13:00 This 44 yrs old Female presents to ER via Ambulatory with complaints of cp Dizziness, Diarrhea, Headache. 13:00 The patient presents with dizziness, lightheadedness. cp 13:00 Onset: The symptoms/episode began/occurred yesterday. cp 13:00 Context: just prior to the episode the patient experienced abdominal pain, chest pain, cp weakness. Associated signs and symptoms: Pertinent positives: headache, diarrhea, Pertinent negatives: diaphoresis, focal weakness, near-syncope, syncope. Severity of symptoms: in the emergency department the symptoms are unchanged despite home interventions. Patient's baseline: Neuro: alert and fully oriented, Motor: no deficits, Ambulation: walks without assistance, Speech: normal. 13:00 Patient reports she recently relocated to [place] from [place], [place] for cp treatment for methamphetamine use. Patient reports last use was in October 2019. 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 . - Social history:: Smoking status: Patient reports the use of cigarette tobacco products, smokes one pack cigarettes per day. - Ebola Screening: : No symptoms or risks identified at this time. ROS: 13:05 Constitutional: Negative for body aches, chills, fever, poor PO intake. cp 13:05 Eyes: Negative for injury, pain, redness, and discharge. cp 13:05 ENT: Negative for drainage from ear(s), ear pain, sore throat, difficulty swallowing, difficulty handling secretions. 13:05 Neck: Negative for pain with movement, pain at rest, stiffness. 13:05 Cardiovascular: Negative for chest pain, edema, palpitations. 13:05 Respiratory: Negative for cough, shortness of breath, wheezing. 13:05 Abdomen/GI: Positive for nausea, diarrhea, Negative for abdominal pain, vomiting, constipation, black/tarry stool, rectal bleeding. 13:05 : Negative for urinary symptoms, vaginal bleeding. 13:05 Skin: Negative for rash. 13:05 Neuro: Positive for headache, Negative for altered mental status, gait disturbance, numbness, syncope, weakness. 13:05 All other systems are negative. Exam: 13:15 Constitutional: The patient appears in no acute distress, alert, awake, cp non-diaphoretic, non-toxic, well developed, well nourished. 13:15 Head/Face: Normocephalic, atraumatic. Eyes: Pupils equal round and reactive to light, cp extra-ocular motions intact. Lids and lashes normal. Conjunctiva and sclera are non-icteric and not injected. Cornea within normal limits. Periorbital areas with no swelling, redness, or edema. ENT: Nares patent. No nasal discharge, no septal abnormalities noted. Tympanic membranes are normal and external auditory canals are clear. Oropharynx with no redness, swelling, or masses, exudates, or evidence of obstruction, uvula midline. Mucous membranes moist. Neck: Trachea midline, no thyromegaly or masses palpated, and no cervical lymphadenopathy. Supple, full range of motion without nuchal rigidity, or vertebral point tenderness. No Meningismus. Chest/axilla: Normal chest wall appearance and motion. Nontender with no deformity. No lesions are appreciated. Cardiovascular: Regular rate and rhythm with a normal S1 and S2. No gallops, murmurs, or rubs. Normal PMI, no JVD. No pulse deficits. Respiratory: Lungs have equal breath sounds bilaterally, clear to auscultation and percussion. No rales, rhonchi or wheezes noted. No increased work of breathing, no retractions or nasal flaring. Abdomen/GI: Soft, non-tender, with normal bowel sounds. No distension or tympany. No guarding or rebound. No evidence of tenderness throughout. Skin: Warm, dry with normal turgor. Normal color with no rashes, no lesions, and no evidence of cellulitis. Neuro: Awake and alert, GCS 15, oriented to person, place, time, and situation. Cranial nerves II-XII grossly intact. Motor strength 5/5 in all extremities. Sensory grossly intact. Cerebellar exam normal. Normal gait. 13:15 Musculoskeletal/extremity: DVT Exam: No signs of deep vein thrombosis. cp Vital Signs: 12:32 BP 121 / 84; Pulse 104; Resp 18 S; Temp 97.4(TE); Pulse Ox 100% on R/A; Weight 72.57 kg aa5 (R); Height 5 ft. 4 in. (162.56 cm) (R); 14:44 BP 112 / 59; Pulse 86; Resp 16; Pulse Ox 100% ; lt1 12:32 Body Mass Index 27.46 (72.57 kg, 162.56 cm) aa5 MDM: 12:46 Patient medically screened. cp 13:15 Differential diagnosis: cardiac arrhythmia, CVA, generalized weakness, GI bleed, cp hypovolemia, idiopathic dizziness, , TIA, vertigo, anemia, migraine, dehydration, electrolyte abnormality. 15:28 Data reviewed: vital signs, nurses notes, lab test result(s), EKG, radiologic studies, cp CT scan. 15:28 Test interpretation: by ED physician or midlevel provider: ECG. Counseling: I had a cp detailed discussion with the patient and/or guardian regarding: the historical points, exam findings, and any diagnostic results supporting the discharge/admit diagnosis, lab results, radiology results, the need for outpatient follow up, for definitive care, a family practitioner, to return to the emergency department if symptoms worsen or persist or if there are any questions or concerns that arise at home. Response to treatment: the patient's symptoms have markedly improved after treatment, and as a result, I will discharge patient. ED course: VSS. Discussed today's results of H/H showing anemia. Patient denies rectal or vaginal bleeding. Will discharge with instructions to f/u with family physician. 12/17 13:01 Order name: UDS; Complete Time: 14:43 12/17 14:44 Interpretation: Reviewed. 12/17 13:01 Order name: CBC with Diff; Complete Time: 14:43 12/17 15:19 Interpretation: Normal except: HGB 8.6; HCT 28.3; MCHC 30.5; MCH 17.9; MCV 58.9; RDW cp 21.2. 12/17 13:01 Order name: BMP; Complete Time: 15:17 cp 12/17 15:19 Interpretation: Normal except: CL 109; CRE 0.54; CA 8.1. 12/17 13:01 Order name: Magnesium; Complete Time: 15:17 12/17 13:55 Order name: Urine Dipstick--Ancillary (enter results) 12/17 13:55 Order name: Urine --Ancillary (enter results) 12/17 13:01 Order name: CT Head Brain wo Cont; Complete Time: 13:59 12/17 13:59 Interpretation: Report reviewed. 12/17 14:14 Order name: Manual Differential; Complete Time: 14:43 EDMS 12/17 13:01 Order name: EKG; Complete Time: 13:01 12/17 13:01 Order name: EKG - Nurse/Tech; Complete Time: 14:02 12/17 13:01 Order name: Urine Dipstick-Ancillary (obtain specimen); Complete Time: 15:16 12/17 13:01 Order name: Urine Test (obtain specimen); Complete Time: 15:16 12/17 13:30 Order name: Labs - recollect needed: recollect cbc and chemistry; Complete Time: 14:20 eb EC:03 Rate is 63 beats/min. Rhythm is regular, Normal Sinus Rhythm with No ectopy. QRS [place] kdr is Normal. Clinical impression: Normal ECG. Administered Medications: 13:22 Drug: Decadron - Dexamethasone 10 mg Route: IVP; Site: right antecubital; ls4 13:22 Drug: NS 0.9% 1000 ml Route: IV; Rate: 1 bolus; Site: right antecubital; ls4 13:22 Drug: Benadryl 12.5 mg Route: IVP; Site: right antecubital; ls4 13:24 Drug: Meclizine 25 mg Route: PO; ls4 13:24 Drug: Zofran 4 mg Route: IVP; Site: right antecubital; ls4 13:24 Drug: TORadol 30 mg Route: IVP; Site: right antecubital; ls4 Disposition: 15:56 Co-signature as Attending Physician, Geovanny Esparza MD I agree with the assessment and kdr plan of care. Disposition: 12/17/19 15:30 Discharged to Home. Impression: Dizziness and giddiness, Headache, Anemia in chronic diseases classified elsewhere. - Condition is Stable. - Discharge Instructions: Anemia, Nonspecific, Dizziness, General Headache Without Cause. - Prescriptions for Meclizine 25 mg Oral Tablet - take 1 tablet by ORAL route every 8 hours As needed; 30 tablet. - Medication Reconciliation Form, Thank You Letter, Antibiotic Education, Prescription Opioid Use, Work release form, Family Work Release form. - Follow up: Private Physician; When: 2 - 3 days; Reason: Recheck today's complaints. - Problem is new. - Symptoms have improved. Signatures: Dispatcher [employer] EDMS Geovanny Esparza MD MD kdr Funmi Domingo RN RN aa5 Jace Ca PA PA cp Botello, Elizabeth eb Stewart, Lisa, RN RN ls4 Corrections: (The following items were deleted from the chart) 15:18 15:19 Normal except: CL 109; CRE 0.54. cp cp 15:34 12:56 Orthostatics ordered. cp ls4 15:43 15:30 12/17/2019 15:30 Discharged to Home. Impression: Dizziness and giddiness; ls4 Headache; Anemia in chronic diseases classified elsewhere. Condition is Stable. Forms are Medication Reconciliation Form, Thank You Letter, Antibiotic Education, Prescription Opioid Use. Follow up: Private Physician; When: 2 - 3 days; Reason: Recheck today's complaints. Problem is new. Symptoms have improved. cp
--- NOTE | 2019-12-17 15:31 | ER ---
Nurse's Notes [facility] Name: Moira Saldaña Age: 44 yrs Sex: Female : 1975 Arrival Date: 12/17/2019 Time: 12:17 Bed 23 Private MD: Diagnosis: Dizziness and giddiness;Headache;Anemia in chronic diseases classified elsewhere Presentation: 12/17 12:17 Note Registration reports pt is outside smoking a cigarette. aa5 12:27 Presenting complaint: Patient states: "I've been having diarrhea, dizzy, and whooshing aa5 in my ears since yesterday". Pt states "I quit meth on November 23 and I've been in [facility] for 2 days". Pt states "I had flu B on December 01 and I took Tamiflu". Transition of care: patient was not received from another setting of care. Onset of symptoms was November 2019. Risk Assessment: Do you want to hurt yourself or someone else? Patient reports no desire to harm self or others. Initial Sepsis Screen: Does the patient meet any 2 criteria? No. Patient's initial sepsis screen is negative. Does the patient have a suspected source of infection? No. Patient's initial sepsis screen is negative. Care prior to arrival: None. 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 . - Social history:: Smoking status: Patient reports the use of cigarette tobacco products, smokes one pack cigarettes per day. - Ebola Screening: : No symptoms or risks identified at this time. Vital Signs: 12:32 BP 121 / 84; Pulse 104; Resp 18 S; Temp 97.4(TE); Pulse Ox 100% on R/A; Weight 72.57 kg aa5 (R); Height 5 ft. 4 in. (162.56 cm) (R); 14:44 BP 112 / 59; Pulse 86; Resp 16; Pulse Ox 100% ; lt1 12:32 Body Mass Index 27.46 (72.57 kg, 162.56 cm) aa5 ED Course: 12:17 Patient arrived in ED. as 12:30 Triage completed. aa5 12:30 Arm band placed on. aa5 12:40 Jace Ca PA is PHCP. cp 12:40 Geovanny Esparza MD is Attending Physician. cp 12:44 Yamini Villatoro, RN is Primary Nurse. ls4 13:19 CT Head Brain wo Cont In Process Unspecified. EDMS Administered Medications: 13:22 Drug: Decadron - Dexamethasone 10 mg Route: IVP; Site: right antecubital; ls4 13:22 Drug: NS 0.9% 1000 ml Route: IV; Rate: 1 bolus; Site: right antecubital; ls4 13:22 Drug: Benadryl 12.5 mg Route: IVP; Site: right antecubital; ls4 13:24 Drug: Meclizine 25 mg Route: PO; ls4 13:24 Drug: Zofran 4 mg Route: IVP; Site: right antecubital; ls4 13:24 Drug: TORadol 30 mg Route: IVP; Site: right antecubital; ls4 Outcome: 15:30 Discharge ordered by MD. cp 15:43 Patient left the ED. ls4 Signatures: Dispatcher [employer] EDMS Zena Curry Audri, RN RN aa5 Jace Ca PA PA cp Yamini Villatoro, RN RN ls4 Ernestina Roweah lt1
[2019-12-17 15:48] VITALS: TEMP 97.4; O2SAT 100
[2019-12-17 15:50] VITALS: BP 112/59
== END 2019-12-17 15:43 | disposition home or self-care (01) ==
LOC: ER 12:13
DX: R42 Dizziness and giddiness (principal); R51 Headache; D64.9 Anemia, unspecified; Z91.012 Allergy to eggs; Z91.013 Allergy to seafood; Z88.0 Allergy status to penicillin; Z88.8 Allergy status to other drugs, medicaments and biological substances
CPT/HCPCS: 36415; 70450; 80048; 80307; 81003; 81025; 83735; 85025; 93005; 96374; 96375; 99283; J1100; J1200; J2405; J7030; J8597

== ENCOUNTER 2019-12-18 17:59 | Emergency (ER) | payer SELFPAY ==
--- OUTSIDE RECORDS SUMMARY | 2019-12-18 18:05 | XMS REPORT ---
:1975 Author Organization [facility] Address [address] [place] [address] [address] [place] [address] Care Team Providers Name Role Phone MAREN [...] ID 2017-02-23 2017-02-23 Emergency E MCSETX MED [id number] 16:08:00 16:08:00 Results Test Description Test Time Test Comments Text Results Atomic Results Result Comments RAD, CHEST, 2 2018-09-15 22:33:00 Reason for FINAL REPORT PATIENT ID: VIEWS exam:->COUGH [id number] TECHNIQUE: 2 views of the chest. COMPARISON: None FINDINGS: The cardiac silhouette is within normal limits. Mediastinum is unremarkable. Lungs are clear. Osseous structures appear unremarkable. Surgical clips in the upper abdomen. IMPRESSION: No acute cardiopulmonary disease. Signed: Kristopher Haynes MDReport Verified Date/Time: 09/15/2018 22:33:09 Reading Location: [facility] Mammo Reading Room E DRUG SCREEN 2018-08-26 [...] NEGATIVE NEGATIVE PCP (test code=BMTPCP) NEGATIVE NEGATIVE [id number] 21:52:00 Test Item Value Reference Range Comments [...] code=URMUCOUS) MUCH /LPF NONE HEPATITIS C ANTIBODY [id number] 10:45:00 Test Item Value Reference Range Comments [...] and confirmation results will follow. URINE DRUG [id number] 18:04:00 Test Item Value Reference Range Comments [...] NEGATIVE NEGATIVE PCP (test code=BMTPCP) NEGATIVE NEGATIVE [id number] 17:43:00 Test Item Value Reference Range Comments [...] only. Not intended for non medical purposes. [id number] 17:10:00 Test Item Value Reference Range Comments SODIUM (test code=NA) 141 MMOL/L 137-145 K+ (test code=KSERUM) 4.4 MMOL/L 3.5-5.1 PLEASE NOTE NEW REFERENCE RANGE(S) IN EFFECT EFFECTIVE 06/28/2010 - NEW ANALYZER ([employer] 5600) CHLORIDE (test code=CL) 108 MMOL/L 98-107 CO2 (test code=CO2) 28 MMOL/L 22-30 BUN (test code=BUN) 16 MG/DL 7-17 CREA (test code=CREA) 0.5 MG/DL 0.7-1.2 GLUCOSE (test 92 MG/DL 70-99 Fasting glucose normal code=GLUCOSE) <100 MG/DL- [employer] recommendation CALCIUM (test 8.5 MG/DL 8.4-10.2 code=CABLOOD) TOTPROT (test 5.8 G/DL 6.3-8.2 code=TOTPROT) ALBUMIN (test 3.3 G/DL 3.5-5.0 code=ALBSERUM) BILITOT (test <0.1 MG/DL 0.2-1.3 code=BILITOT) AST (test code=AST) 20 U/L 15-46 PHOSALK (test 74 U/L 38-126 code=PHOSALK) ALT (test code=ALT) 29 U/L 13-69 GFR (test code=GFR) 144 mL/min/1.73m2 A GFR of >90 mL/min/1.73m2 is considered normal. CREATINE [id number] 17:10:00 Test Item Value Reference Range Comments CK (test code=CK) 33 U/L 30-135 [id number] 16:37:00 Test Item Value Reference Range Comments [...] NEUT (test code=NEUT) 3.6 K/UL 1.2-7.2 POCT-GLUCOSE [id number] 07:47:00 Test Item Value Reference Range Comments POC-GLUCOSE METER (BEAKER) 87 mg/dL 70-110 TESTED AT [facility] [address] [facility] (test zxha=9776) [facility] [address] BASIC METABOLIC [id number] 05:15:00 Test Item Value Reference Range Comments SODIUM (BEAKER) (test 140 meq/L 136-145 kkcs=387) POTASSIUM (BEAKER) (test 4.2 meq/L 3.5-5.1 flnl=679) CHLORIDE (BEAKER) (test 108 meq/L 98-107 cfbg=461) CO2 (BEAKER) (test 23 meq/L 22-29 jwfs=527) BLOOD UREA NITROGEN 6 mg/dL 7-21 (BEAKER) (test rhbr=331) CREATININE (BEAKER) (test 0.61 mg/dL 0.57-1.25 ueaf=466) GLUCOSE RANDOM (BEAKER) 80 mg/dL 70-105 (test eacf=227) CALCIUM (BEAKER) (test 8.4 mg/dL 8.4-10.2 mwnj=269) EGFR (BEAKER) (test 108 mL/min/1.73 sq m ESTIMATED GFR IS NOT pxfa=1040) ACCURATE CREATININE CLEARANCE IN PREDICTING GLOMERULAR FILTRATION RATE. ESTIMATED GFR IS NOT APPLICABLE FOR DIALYSIS PATIENTS. HEMOGLOBIN AND [id number] 04:48:00 Test Item Value Reference Range Comments HEMOGLOBIN (BEAKER) (test vbsr=232) 8.2 GM/DL 11.2-15.7 HEMATOCRIT (BEAKER) (test euho=536) 28.6 % 34.1-44.9 [id number] 22:06:00 Test Item Value Reference Range Comments PROTIME (BEAKER) (test ynru=868) 17.2 seconds 11.7-14.7 INR (BEAKER) (test vrhl=765) 1.4 <=5.9 PARTIAL THROMBOPLASTIN TIME (BEAKER) (test 35.4 seconds 22.5-36.0 thbu=566) RECOMMENDED COUMADIN/WARFARIN INR THERAPY RANGESSTANDARD DOSE: 2.0 - 3.0 Includes: PROPHYLAXIS forvenous thrombosis, systemic embolization; TREATMENT for venous thrombosis and/or pulmonary embolus.HIGH RISK: Target INR is 2.5-3.5 for patients with mechanical heart valves.[id number] 18:03:00 Test Item Value Reference Range Comments MAGNESIUM (BEAKER) (test 2.2 mg/dL 1.6-2.6 Specimen slightly hemolyzed whaz=756) BASIC METABOLIC [id number] 18:03:00 Test Item Value Reference Range Comments SODIUM (BEAKER) (test 141 meq/L 136-145 dptp=981) POTASSIUM (BEAKER) (test 4.2 meq/L 3.5-5.1 Specimen slightly asxz=837) hemolyzed CHLORIDE (BEAKER) (test 107 meq/L 98-107 oeub=928) CO2 (BEAKER) (test 23 meq/L 22-29 uqwc=339) BLOOD UREA NITROGEN 4 mg/dL 7-21 (BEAKER) (test fmgy=097) CREATININE (BEAKER) (test 0.63 mg/dL 0.57-1.25 Specimen slightly srty=787) hemolyzed GLUCOSE RANDOM (BEAKER) 68 mg/dL 70-105 (test koia=092) CALCIUM (BEAKER) (test 8.9 mg/dL 8.4-10.2 plfx=288) EGFR (BEAKER) (test 104 mL/min/1.73 sq m ESTIMATED GFR IS NOT ytmh=5763) ACCURATE CREATININE CLEARANCE IN PREDICTING GLOMERULAR FILTRATION RATE. ESTIMATED GFR IS NOT APPLICABLE FOR DIALYSIS PATIENTS. POCT-GLUCOSE [id number] 13:00:00 Test Item Value Reference Range Comments POC-GLUCOSE METER (BEAKER) 98 mg/dL 70-110 TESTED AT [address] (test ukuh=0495) [place] [address] POCT-GLUCOSE [id number] 07:30:00 Test Item Value Reference Range Comments POC-GLUCOSE METER (BEAKER) 93 mg/dL 70-110 TESTED AT [address] (test vddm=8590) [place] [id number] CBC W/PLT COUNT & AUTO [id number] 06:43:00 Test Item Value Reference Range Comments WHITE BLOOD CELL COUNT 4.5 K/ L 3.5-10.5 (BEAKER) (test xtqa=801) RED BLOOD CELL COUNT (BEAKER) 4.03 M/ L 3.93-5.22 (test cgjb=588) HEMOGLOBIN (BEAKER) (test 7.7 GM/DL 11.2-15.7 tqts=197) HEMATOCRIT (BEAKER) (test 27.4 % 34.1-44.9 mchp=217) MEAN CORPUSCULAR VOLUME 68.0 fL 79.4-94.8 (BEAKER) (test jyvh=973) MEAN CORPUSCULAR HEMOGLOBIN 19.1 pg 25.6-32.2 (BEAKER) (test mroo=886) MEAN CORPUSCULAR HEMOGLOBIN 28.1 GM/DL 32.2-35.5 CONC (BEAKER) (test hhdb=581) RED CELL DISTRIBUTION WIDTH 25.7 % 11.7-14.4 (BEAKER) (test uhhm=820) PLATELET COUNT (BEAKER) (test 235 K/CU MM 150-450 varl=811) MEAN PLATELET VOLUME (BEAKER) fL 9.4-12.3 Unable to report due to (test fhce=108) abnormal Platelet population distribution. NUCLEATED RED BLOOD CELLS 0 /100 WBC 0-0 (BEAKER) (test utzb=544) NEUTROPHILS RELATIVE PERCENT 57 % (BEAKER) (test ikhu=982) LYMPHOCYTES RELATIVE PERCENT 30 % (BEAKER) (test yqyt=588) MONOCYTES RELATIVE PERCENT 8 % (BEAKER) (test rnun=469) EOSINOPHILS RELATIVE PERCENT 5 % (BEAKER) (test tfks=310) BASOPHILS RELATIVE PERCENT 0 % (BEAKER) (test ebrq=714) NEUTROPHILS ABSOLUTE COUNT 2.58 K/ L 1.56-6.13 (BEAKER) (test ngxn=837) LYMPHOCYTES ABSOLUTE COUNT 1.36 K/ L 1.18-3.74 (BEAKER) (test jlqq=059) MONOCYTES ABSOLUTE COUNT 0.36 K/ L 0.24-0.36 (BEAKER) (test rgsm=075) EOSINOPHILS ABSOLUTE COUNT 0.21 K/ L 0.04-0.36 (BEAKER) (test amhm=943) BASOPHILS ABSOLUTE COUNT 0.02 K/ L 0.01-0.08 (BEAKER) (test arvy=529) IMMATURE GRANULOCYTES-RELATIVE 0 % 0-1 PERCENT (BEAKER) (test faiz=0880) POCT-GLUCOSE [id number] 22:04:00 Test Item Value Reference Range Comments POC-GLUCOSE METER (BEAKER) 87 mg/dL 70-110 TESTED AT [facility] [address] [facility] (test owib=2511) [facility] [address] [id number] 15:12:00 Test Item Value Reference Range Comments LIPASE (BEAKER) (test enpr=798) 7 U/L 8-78 BASIC METABOLIC [id number] 15:12:00 Test Item Value Reference Range Comments SODIUM (BEAKER) (test 142 meq/L 136-145 zfdl=380) POTASSIUM (BEAKER) (test 3.7 meq/L 3.5-5.1 qnsz=588) CHLORIDE (BEAKER) (test 107 meq/L 98-107 jecw=349) CO2 (BEAKER) (test 27 meq/L 22-29 htpk=576) BLOOD UREA NITROGEN 5 mg/dL 7-21 (BEAKER) (test gtsm=328) CREATININE (BEAKER) (test 0.57 mg/dL 0.57-1.25 ivgs=355) GLUCOSE RANDOM (BEAKER) 82 mg/dL 70-105 (test qhuc=735) CALCIUM (BEAKER) (test 8.6 mg/dL 8.4-10.2 uemj=975) EGFR (BEAKER) (test 116 mL/min/1.73 sq m ESTIMATED GFR IS NOT ubqt=3625) ACCURATE CREATININE CLEARANCE IN PREDICTING GLOMERULAR FILTRATION RATE. ESTIMATED GFR IS NOT APPLICABLE FOR DIALYSIS PATIENTS. HEPATIC FUNCTION [id number] 15:12:00 Test Item Value Reference Range Comments TOTAL PROTEIN (BEAKER) (test otod=951) 5.9 gm/dL 6.0-8.3 ALBUMIN (BEAKER) (test ynwm=0932) 3.4 g/dL 3.5-5.0 BILIRUBIN TOTAL (BEAKER) (test dvoq=805) 0.3 mg/dL 0.2-1.2 BILIRUBIN DIRECT (BEAKER) (test tmft=694) 0.2 mg/dL 0.1-0.5 ALKALINE PHOSPHATASE (BEAKER) (test kjms=874) 267 U/L 40-150 AST (SGOT) (BEAKER) (test ggua=045) 16 U/L 5-34 ALT (SGPT) (BEAKER) (test mikt=452) 15 U/L 6-55 CBC W/PLT COUNT & AUTO [id number] 15:00:00 Test Item Value Reference Range Comments WHITE BLOOD CELL COUNT 6.7 K/ L 3.5-10.5 (BEAKER) (test bxtc=558) RED BLOOD CELL COUNT (BEAKER) 4.47 M/ L 3.93-5.22 (test lczw=801) HEMOGLOBIN (BEAKER) (test 8.4 GM/DL 11.2-15.7 ceao=140) HEMATOCRIT (BEAKER) (test 28.9 % 34.1-44.9 fkza=522) MEAN CORPUSCULAR VOLUME 64.7 fL 79.4-94.8 (BEAKER) (test refy=047) MEAN CORPUSCULAR HEMOGLOBIN 18.8 pg 25.6-32.2 (BEAKER) (test syza=451) MEAN CORPUSCULAR HEMOGLOBIN 29.1 GM/DL 32.2-35.5 CONC (BEAKER) (test yebw=758) RED CELL DISTRIBUTION WIDTH 25.3 % 11.7-14.4 (BEAKER) (test qkuw=899) PLATELET COUNT (BEAKER) (test 318 K/CU MM 150-450 fyys=417) MEAN PLATELET VOLUME (BEAKER) fL 9.4-12.3 Unable to report due to (test cdhp=836) abnormal Platelet population distribution. NUCLEATED RED BLOOD CELLS 0 /100 WBC 0-0 (BEAKER) (test pqyw=260) NEUTROPHILS RELATIVE PERCENT 57 % (BEAKER) (test lcft=974) LYMPHOCYTES RELATIVE PERCENT 31 % (BEAKER) (test wnml=494) MONOCYTES RELATIVE PERCENT 8 % (BEAKER) (test igfe=309) EOSINOPHILS RELATIVE PERCENT 3 % (BEAKER) (test ocbi=618) BASOPHILS RELATIVE PERCENT 0 % (BEAKER) (test cyfk=543) NEUTROPHILS ABSOLUTE COUNT 3.82 K/ L 1.56-6.13 (BEAKER) (test mqjp=249) LYMPHOCYTES ABSOLUTE COUNT 2.08 K/ L 1.18-3.74 (BEAKER) (test rygk=099) MONOCYTES ABSOLUTE COUNT 0.56 K/ L 0.24-0.36 (BEAKER) (test rosg=851) EOSINOPHILS ABSOLUTE COUNT 0.18 K/ L 0.04-0.36 (BEAKER) (test kjmz=219) BASOPHILS ABSOLUTE COUNT 0.03 K/ L 0.01-0.08 (BEAKER) (test wucp=996) IMMATURE GRANULOCYTES-RELATIVE 0 % 0-1 PERCENT (BEAKER) (test vpjn=3655) URINALYSIS W/ [id number] 14:49:00 Test Item Value Reference Range Comments COLOR (BEAKER) (test xvne=835) Light Yellow CLARITY (BEAKER) (test kdhz=751) Clear SPECIFIC GRAVITY UA (BEAKER) (test quiw=522) 1.004 1.001-1.035 PH UA (BEAKER) (test jaqd=609) 7.0 5.0-8.0 PROTEIN UA (BEAKER) (test broh=789) Negative Negative GLUCOSE UA (BEAKER) (test gxce=025) Negative Negative KETONES UA (BEAKER) (test dusu=862) Negative Negative BILIRUBIN UA (BEAKER) (test mgkw=719) Negative Negative BLOOD UA (BEAKER) (test qzlp=850) Negative Negative NITRITE UA (BEAKER) (test hwst=604) Negative Negative LEUKOCYTE ESTERASE UA (BEAKER) (test lwue=679) Small Negative UROBILINOGEN UA (BEAKER) (test clfo=930) 0.2 mg/dL 0.2-1.0 RBC UA (BEAKER) (test hzbs=265) 0 /HPF WBC UA (BEAKER) (test qoud=550) 3 /HPF BACTERIA (BEAKER) (test zfcm=514) Rare SQUAMOUS EPITHELIAL (BEAKER) (test baac=441) 1 /HPF SOURCE(BEAKER) (test rhsn=6972) Urine, Voided SCREEN, [id number] 14:46:00 Test Item Value Reference Range Comments TEST URINE (BEAKER) (test lyqx=544) Negative TISSUE [id number] 17:18:00Surgical Pathology Report Case: [id number] Authorizing Provider: Sebastien Ba Collected: 05/19/2018 1718 Ordering Location: [address] Received: 05/20/2018 0933 Service Pathologist: Rose Marie Agee MD Specimen: Bile, DISTAL BILE DUCT BX BILE DUCT, DISTAL, BIOPSIES- BENIGN COLUMNAR MUCOSA- NEGATIVE FOR DYSPLASIA OR CARCINOMA Signing Pathologist Direct Phone Line: [phone] signed by Rose Marie Agee MD on 05/24/2018 at 5:18 [id number] Distal bile duct biopsyReceived in formalin labeled "bile", description "distal bile duct biopsy " is a single fragment measuring 0.2 cm in greatest dimension. The specimen is entirely submitted in A1. DB/ew Microscopic examination is performed and the findings are incorporated in the diagnostic line.CBC W/PLT COUNT & AUTO [id number] 14:24:00 Test Item Value Reference Range Comments WHITE BLOOD CELL COUNT 6.2 K/ L 3.5-10.5 (BEAKER) (test nbve=427) RED BLOOD CELL COUNT (BEAKER) 3.83 M/ L 3.93-5.22 (test gzxc=952) HEMOGLOBIN (BEAKER) (test 7.2 GM/DL 11.2-15.7 hdmr=861) HEMATOCRIT (BEAKER) (test 25.2 % 34.1-44.9 mdsi=515) MEAN CORPUSCULAR VOLUME 65.8 fL 79.4-94.8 (BEAKER) (test dlfn=350) MEAN CORPUSCULAR HEMOGLOBIN 18.8 pg 25.6-32.2 (BEAKER) (test wcvg=018) MEAN CORPUSCULAR HEMOGLOBIN 28.6 GM/DL 32.2-35.5 CONC (BEAKER) (test vfvp=271) RED CELL DISTRIBUTION WIDTH 25.3 % 11.7-14.4 (BEAKER) (test ctly=959) PLATELET COUNT (BEAKER) (test 260 K/CU MM 150-450 wzkh=423) MEAN PLATELET VOLUME (BEAKER) fL 9.4-12.3 Unable to report due to (test fqdo=495) abnormal Platelet population distribution. NUCLEATED RED BLOOD CELLS 0 /100 WBC 0-0 (BEAKER) (test rjvg=732) NEUTROPHILS RELATIVE PERCENT 42 % (BEAKER) (test qfak=448) LYMPHOCYTES RELATIVE PERCENT 45 % (BEAKER) (test qtti=655) MONOCYTES RELATIVE PERCENT 9 % (BEAKER) (test mmoh=510) EOSINOPHILS RELATIVE PERCENT 3 % (BEAKER) (test wzhp=686) BASOPHILS RELATIVE PERCENT 1 % (BEAKER) (test ueky=742) NEUTROPHILS ABSOLUTE COUNT 2.58 K/ L 1.56-6.13 (BEAKER) (test xyxz=757) LYMPHOCYTES ABSOLUTE COUNT 2.76 K/ L 1.18-3.74 (BEAKER) (test jqsk=328) MONOCYTES ABSOLUTE COUNT 0.57 K/ L 0.24-0.36 (BEAKER) (test muzd=861) EOSINOPHILS ABSOLUTE COUNT 0.17 K/ L 0.04-0.36 (BEAKER) (test hvvx=859) BASOPHILS ABSOLUTE COUNT 0.05 K/ L 0.01-0.08 (BEAKER) (test zkdl=337) IMMATURE GRANULOCYTES-RELATIVE 1 % 0-1 PERCENT (BEAKER) (test dmif=2563) COMPREHENSIVE METABOLIC [id number] 13:21:00 Test Item Value Reference Range Comments TOTAL PROTEIN (BEAKER) 5.0 gm/dL 6.0-8.3 (test fbwj=733) ALBUMIN (BEAKER) (test 2.9 g/dL 3.5-5.0 oxez=6974) ALKALINE PHOSPHATASE 278 U/L 40-150 (BEAKER) (test pkwf=937) BILIRUBIN TOTAL (BEAKER) 0.2 mg/dL 0.2-1.2 (test wzzl=635) SODIUM (BEAKER) (test 139 meq/L 136-145 njgq=075) POTASSIUM (BEAKER) (test 3.9 meq/L 3.5-5.1 btmp=452) CHLORIDE (BEAKER) (test 109 meq/L 98-107 wava=640) CO2 (BEAKER) (test 21 meq/L 22-29 oope=811) BLOOD UREA NITROGEN 4 mg/dL 7-21 (BEAKER) (test mxpx=711) CREATININE (BEAKER) (test 0.59 mg/dL 0.57-1.25 dnqe=649) GLUCOSE RANDOM (BEAKER) 87 mg/dL 70-105 (test gqtu=067) CALCIUM (BEAKER) (test 8.0 mg/dL 8.4-10.2 mpvm=840) AST (SGOT) (BEAKER) (test 17 U/L 5-34 efkq=775) ALT (SGPT) (BEAKER) (test 23 U/L 6-55 sbno=701) EGFR (BEAKER) (test 112 mL/min/1.73 sq ESTIMATED GFR IS NOT iuya=4324) m ACCURATE CREATININE CLEARANCE IN PREDICTING GLOMERULAR FILTRATION RATE. ESTIMATED GFR IS NOT APPLICABLE FOR DIALYSIS PATIENTS. [id number] 16:59:00 Test Item Value Reference Range Comments LIPASE (BEAKER) (test ermx=975) 15 U/L 8-78 COMPREHENSIVE METABOLIC [id number] 16:59:00 Test Item Value Reference Range Comments TOTAL PROTEIN (BEAKER) 5.2 gm/dL 6.0-8.3 (test wtpn=246) ALBUMIN (BEAKER) (test 3.1 g/dL 3.5-5.0 uzjg=0218) ALKALINE PHOSPHATASE 392 U/L 40-150 (BEAKER) (test dkqz=473) BILIRUBIN TOTAL (BEAKER) 0.3 mg/dL 0.2-1.2 (test hyet=740) SODIUM (BEAKER) (test 140 meq/L 136-145 fcgp=438) POTASSIUM (BEAKER) (test 3.8 meq/L 3.5-5.1 ktfu=910) CHLORIDE (BEAKER) (test 106 meq/L 98-107 qglf=900) CO2 (BEAKER) (test 31 meq/L 22-29 jqru=023) BLOOD UREA NITROGEN 3 mg/dL 7-21 (BEAKER) (test pcqn=196) CREATININE (BEAKER) (test 0.58 mg/dL 0.57-1.25 ojdp=115) GLUCOSE RANDOM (BEAKER) 108 mg/dL 70-105 (test ufqz=816) CALCIUM (BEAKER) (test 8.3 mg/dL 8.4-10.2 ndsw=548) AST (SGOT) (BEAKER) (test 28 U/L 5-34 lswz=501) ALT (SGPT) (BEAKER) (test 54 U/L 6-55 rsdf=325) EGFR (BEAKER) (test 114 mL/min/1.73 sq ESTIMATED GFR IS NOT axxy=4290) m ACCURATE CREATININE CLEARANCE IN PREDICTING GLOMERULAR FILTRATION RATE. ESTIMATED GFR IS NOT APPLICABLE FOR DIALYSIS PATIENTS. CBC W/PLT COUNT & AUTO [id number] 16:52:00 Test Item Value Reference Range Comments WHITE BLOOD CELL COUNT 6.4 K/ L 3.5-10.5 (BEAKER) (test qrvu=070) RED BLOOD CELL COUNT (BEAKER) 3.83 M/ L 3.93-5.22 (test wkaq=587) HEMOGLOBIN (BEAKER) (test 7.3 GM/DL 11.2-15.7 uttg=870) HEMATOCRIT (BEAKER) (test 25.0 % 34.1-44.9 itsr=870) MEAN CORPUSCULAR VOLUME 65.3 fL 79.4-94.8 (BEAKER) (test pwbs=981) MEAN CORPUSCULAR HEMOGLOBIN 19.1 pg 25.6-32.2 (BEAKER) (test uwhx=455) MEAN CORPUSCULAR HEMOGLOBIN 29.2 GM/DL 32.2-35.5 CONC (BEAKER) (test zbbt=759) RED CELL DISTRIBUTION WIDTH 25.5 % 11.7-14.4 (BEAKER) (test vfkw=042) PLATELET COUNT (BEAKER) (test 237 K/CU MM 150-450 ehxg=827) MEAN PLATELET VOLUME (BEAKER) fL 9.4-12.3 Unable to report due to (test pxle=947) abnormal Platelet population distribution. NUCLEATED RED BLOOD CELLS 0 /100 WBC 0-0 (BEAKER) (test xisi=331) NEUTROPHILS RELATIVE PERCENT 53 % (BEAKER) (test suzu=399) LYMPHOCYTES RELATIVE PERCENT 36 % (BEAKER) (test rrce=478) MONOCYTES RELATIVE PERCENT 8 % (BEAKER) (test soxm=490) EOSINOPHILS RELATIVE PERCENT 2 % (BEAKER) (test mdqp=041) BASOPHILS RELATIVE PERCENT 0 % (BEAKER) (test rpct=952) NEUTROPHILS ABSOLUTE COUNT 3.41 K/ L 1.56-6.13 (BEAKER) (test zsxb=848) LYMPHOCYTES ABSOLUTE COUNT 2.32 K/ L 1.18-3.74 (BEAKER) (test qinc=049) MONOCYTES ABSOLUTE COUNT 0.53 K/ L 0.24-0.36 (BEAKER) (test ahfm=160) EOSINOPHILS ABSOLUTE COUNT 0.14 K/ L 0.04-0.36 (BEAKER) (test fqwn=339) BASOPHILS ABSOLUTE COUNT 0.02 K/ L 0.01-0.08 (BEAKER) (test aufl=810) IMMATURE GRANULOCYTES-RELATIVE 0 % 0-1 PERCENT (BEAKER) (test smbr=4474) FL, [id number] 18:28:00Intra Op ImagingReason for exam:->bile duct stone obstructionFINAL REPORT ERCP 6 views 05/19/2018 6:27 PM CLINICAL HISTORY: Instrument localization COMPARISON: None available IMPRESSION : Please correlate imaging report findings with the procedure note prepared by Dr. Ba, as an intra-procedure imaging consultation was not requested. Reported fluoroscopy time: 133.9 seconds. Signed: Barron Miner Verified Date/Time: 05/19/2018 18:28:10 Reading Location: [facility] Radiology Reading Room Electronically signed by: BARRON MINER M.D. on 06:28 PMPREGNANCY SCREEN, [id number] 09:50:00 Test Item Value Reference Range Comments TEST URINE (BEAKER) (test xaow=374) Negative CBC W/PLT COUNT & AUTO [id number] 06:38:00 Test Item Value Reference Range Comments WHITE BLOOD CELL COUNT 4.9 K/ L 3.5-10.5 (BEAKER) (test ejlp=316) RED BLOOD CELL COUNT (BEAKER) 4.00 M/ L 3.93-5.22 (test ljfa=708) HEMOGLOBIN (BEAKER) (test 7.4 GM/DL 11.2-15.7 lfnp=773) HEMATOCRIT (BEAKER) (test 26.1 % 34.1-44.9 flon=718) MEAN CORPUSCULAR VOLUME 65.3 fL 79.4-94.8 (BEAKER) (test ravo=674) MEAN CORPUSCULAR HEMOGLOBIN 18.5 pg 25.6-32.2 (BEAKER) (test gjzc=453) MEAN CORPUSCULAR HEMOGLOBIN 28.4 GM/DL 32.2-35.5 CONC (BEAKER) (test wjwg=547) RED CELL DISTRIBUTION WIDTH 25.9 % 11.7-14.4 (BEAKER) (test euwb=158) PLATELET COUNT (BEAKER) (test 210 K/CU MM 150-450 evtl=190) MEAN PLATELET VOLUME (BEAKER) fL 9.4-12.3 Unable to report due to (test selo=469) abnormal Platelet population distribution. NUCLEATED RED BLOOD CELLS 0 /100 WBC 0-0 (BEAKER) (test cdkc=638) NEUTROPHILS RELATIVE PERCENT 44 % (BEAKER) (test dlhm=746) LYMPHOCYTES RELATIVE PERCENT 42 % (BEAKER) (test lhtm=283) MONOCYTES RELATIVE PERCENT 8 % (BEAKER) (test ibdp=509) EOSINOPHILS RELATIVE PERCENT 5 % (BEAKER) (test jpox=238) BASOPHILS RELATIVE PERCENT 1 % (BEAKER) (test yfgj=219) NEUTROPHILS ABSOLUTE COUNT 2.19 K/ L 1.56-6.13 (BEAKER) (test okow=459) LYMPHOCYTES ABSOLUTE COUNT 2.07 K/ L 1.18-3.74 (BEAKER) (test fjiq=518) MONOCYTES ABSOLUTE COUNT 0.40 K/ L 0.24-0.36 (BEAKER) (test qetc=891) EOSINOPHILS ABSOLUTE COUNT 0.23 K/ L 0.04-0.36 (BEAKER) (test lnpv=368) BASOPHILS ABSOLUTE COUNT 0.03 K/ L 0.01-0.08 (BEAKER) (test twtd=336) IMMATURE GRANULOCYTES-RELATIVE 0 % 0-1 PERCENT (BEAKER) (test gxck=7318) HEPATIC FUNCTION [id number] 06:36:00 Test Item Value Reference Range Comments TOTAL PROTEIN (BEAKER) (test hkqf=295) 4.9 gm/dL 6.0-8.3 ALBUMIN (BEAKER) (test kjwc=5154) 3.0 g/dL 3.5-5.0 BILIRUBIN TOTAL (BEAKER) (test xxer=736) 0.2 mg/dL 0.2-1.2 BILIRUBIN DIRECT (BEAKER) (test bbjr=339) 0.1 mg/dL 0.1-0.5 ALKALINE PHOSPHATASE (BEAKER) (test ofmk=935) 437 U/L 40-150 AST (SGOT) (BEAKER) (test wpkh=875) 57 U/L 5-34 ALT (SGPT) (BEAKER) (test jbgh=653) 89 U/L 6-55 BASIC METABOLIC [id number] 06:36:00 Test Item Value Reference Range Comments SODIUM (BEAKER) (test 138 meq/L 136-145 qtmt=962) POTASSIUM (BEAKER) (test 3.8 meq/L 3.5-5.1 fcsq=660) CHLORIDE (BEAKER) (test 105 meq/L 98-107 gnte=135) CO2 (BEAKER) (test 27 meq/L 22-29 usuf=458) BLOOD UREA NITROGEN 5 mg/dL 7-21 (BEAKER) (test wmzd=325) CREATININE (BEAKER) (test 0.58 mg/dL 0.57-1.25 vfof=764) GLUCOSE RANDOM (BEAKER) 90 mg/dL 70-105 (test lxqi=767) CALCIUM (BEAKER) (test 8.3 mg/dL 8.4-10.2 yjke=327) EGFR (BEAKER) (test 114 mL/min/1.73 sq m ESTIMATED GFR IS NOT lons=3634) ACCURATE CREATININE CLEARANCE IN PREDICTING GLOMERULAR FILTRATION RATE. ESTIMATED GFR IS NOT APPLICABLE FOR DIALYSIS PATIENTS. PROTHROMBIN [id number] 06:17:00 Test Item Value Reference Range Comments PROTIME (BEAKER) (test yyiz=565) 13.2 seconds 11.7-14.7 INR (BEAKER) (test pltb=342) 1.0 <=5.9 RECOMMENDED COUMADIN/WARFARIN INR THERAPY RANGESSTANDARD DOSE: 2.0 - 3.0 Includes: PROPHYLAXIS forvenous thrombosis, systemic embolization; TREATMENT for venous thrombosis and/or pulmonary embolus.HIGH RISK: Target INR is 2.5-3.5 for patients with mechanical heart valves.HEPATIC FUNCTION [id number] 05:18 :00 Test Item Value Reference Range Comments TOTAL PROTEIN (BEAKER) (test luwd=125) 5.2 gm/dL 6.0-8.3 ALBUMIN (BEAKER) (test tqsc=7543) 3.1 g/dL 3.5-5.0 BILIRUBIN TOTAL (BEAKER) (test qjqf=631) 0.3 mg/dL 0.2-1.2 BILIRUBIN DIRECT (BEAKER) (test faay=961) 0.2 mg/dL 0.1-0.5 ALKALINE PHOSPHATASE (BEAKER) (test bfgu=921) 537 U/L 40-150 AST (SGOT) (BEAKER) (test rrgi=615) 126 U/L 5-34 ALT (SGPT) (BEAKER) (test vjyd=586) 136 U/L 6-55 BASIC METABOLIC [id number] 05:18:00 Test Item Value Reference Range Comments SODIUM (BEAKER) (test 139 meq/L 136-145 lbug=547) POTASSIUM (BEAKER) (test 4.0 meq/L 3.5-5.1 ywag=855) CHLORIDE (BEAKER) (test 106 meq/L 98-107 vfyc=438) CO2 (BEAKER) (test 27 meq/L 22-29 ksif=464) BLOOD UREA NITROGEN 6 mg/dL 7-21 (BEAKER) (test tvef=457) CREATININE (BEAKER) (test 0.53 mg/dL 0.57-1.25 lsdd=040) GLUCOSE RANDOM (BEAKER) 87 mg/dL 70-105 (test pgyp=744) CALCIUM (BEAKER) (test 8.2 mg/dL 8.4-10.2 sibu=071) EGFR (BEAKER) (test 127 mL/min/1.73 sq m ESTIMATED GFR IS NOT eofl=8128) ACCURATE CREATININE CLEARANCE IN PREDICTING GLOMERULAR FILTRATION RATE. ESTIMATED GFR IS NOT APPLICABLE FOR DIALYSIS PATIENTS. PROTHROMBIN [id number] 04:49:00 Test Item Value Reference Range Comments PROTIME (BEAKER) (test dqdj=728) 12.7 seconds 11.7-14.7 INR (BEAKER) (test uknm=731) 1.0 <=5.9 RECOMMENDED COUMADIN/WARFARIN INR THERAPY RANGESSTANDARD DOSE: 2.0 - 3.0 Includes: PROPHYLAXIS forvenous thrombosis, systemic embolization; TREATMENT for venous thrombosis and/or pulmonary embolus.HIGH RISK: Target INR is 2.5-3.5 for patients with mechanical heart valves.CBC W/PLT COUNT & AUTO [id number] 04:47:00 Test Item Value Reference Range Comments WHITE BLOOD CELL COUNT 4.4 K/ L 3.5-10.5 (BEAKER) (test omln=037) RED BLOOD CELL COUNT (BEAKER) 4.02 M/ L 3.93-5.22 (test sjga=823) HEMOGLOBIN (BEAKER) (test 7.6 GM/DL 11.2-15.7 qvdo=455) HEMATOCRIT (BEAKER) (test 26.3 % 34.1-44.9 ttnd=467) MEAN CORPUSCULAR VOLUME 65.4 fL 79.4-94.8 (BEAKER) (test wngt=678) MEAN CORPUSCULAR HEMOGLOBIN 18.9 pg 25.6-32.2 (BEAKER) (test uyjw=648) MEAN CORPUSCULAR HEMOGLOBIN 28.9 GM/DL 32.2-35.5 CONC (BEAKER) (test ejsj=307) RED CELL DISTRIBUTION WIDTH 25.9 % 11.7-14.4 (BEAKER) (test lbmq=304) PLATELET COUNT (BEAKER) (test 218 K/CU MM 150-450 smtb=752) MEAN PLATELET VOLUME (BEAKER) fL 9.4-12.3 Unable to report due to (test qxxl=587) abnormal Platelet population distribution. NUCLEATED RED BLOOD CELLS 0 /100 WBC 0-0 (BEAKER) (test kmcm=008) NEUTROPHILS RELATIVE PERCENT 49 % (BEAKER) (test rhyn=142) LYMPHOCYTES RELATIVE PERCENT 38 % (BEAKER) (test zekd=030) MONOCYTES RELATIVE PERCENT 8 % (BEAKER) (test gvab=530) EOSINOPHILS RELATIVE PERCENT 4 % (BEAKER) (test orej=431) BASOPHILS RELATIVE PERCENT 1 % (BEAKER) (test eugr=353) NEUTROPHILS ABSOLUTE COUNT 2.18 K/ L 1.56-6.13 (BEAKER) (test hqsv=470) LYMPHOCYTES ABSOLUTE COUNT 1.67 K/ L 1.18-3.74 (BEAKER) (test gtyl=379) MONOCYTES ABSOLUTE COUNT 0.36 K/ L 0.24-0.36 (BEAKER) (test vofu=044) EOSINOPHILS ABSOLUTE COUNT 0.19 K/ L 0.04-0.36 (BEAKER) (test xxlv=040) BASOPHILS ABSOLUTE COUNT 0.03 K/ L 0.01-0.08 (BEAKER) (test fnuh=589) IMMATURE GRANULOCYTES-RELATIVE 0 % 0-1 PERCENT (BEAKER) (test vfxb=0795) MR, ABDOMEN, [id number] 16:29:00Please do mrcpFINAL REPORT INDICATION:42-year-old female with [...] MDReport Verified Date/Time: 05/17/2018 16:29:27 Reading Location: [facility] B1 [id number] Ortho Consult Reading Room Electronically signed by: IRVING SENA M.D. on 2017 04:29 [id number] 10:08:00 Test Item Value Reference Range Comments FERRITIN (BEAKER) (test yzut=807) 11 ng/mL 5-275 IRON, TIBC, % SAT. (WITHOUT FERRITIN)2018-05-17 09:48:00 Test Item Value Reference Range Comments IRON (BEAKER) (test tubz=210) 23 ug/dL 40-160 TOTAL IRON BINDING CAPACITY (BEAKER) (test 436 ug/dL 250-450 rptu=436) IRON % SATURATION (2) (BEAKER) (test stei=5157) 5 % 20-55 RAPID DRUG SCREEN, [id number] 09:04:00 Test Item Value Reference Range Comments BARBITURATE URINE (BEAKER) (test aizh=021) Negative Negative BENZODIAZEPINE SCREEN URINE (BEAKER) (test Negative Negative zmym=470) COCAINE (METAB.) SCREEN (BEAKER) (test wedn=6282) Negative Negative METHADONE SCREEN (BEAKER) (test otpy=4678) Negative Negative OPIATE SCREEN URINE (BEAKER) (test iuxd=729) Positive Negative CANNABINOID SCREEN URINE (BEAKER) (test orpb=290) Negative Negative AMPH/METHAMPH SCREEN (BEAKER) (test rkiu=5311) Negative Negative PHENCYCLIDINE SCREEN URINE (BEAKER) (test hugt=303) Negative Negative OXYCODONE SCREEN URINE (BEAKER) (test qzyf=2611) Negative Negative DRUG CUTOFF CONC.Cocaine 300 ng/mL Cannabinoid 50 ng/mL Benzodiazepine 200 ng/mLBarbiturate 200 ng/ mLPhencyclidine 25 ng/mLOpiate 300 ng/mLMethadone 300 ng/mLAmphetamine/ 1000 ng/mL MethamphetamineOxycodone 300 ng/mLThis assay provides an unconfirmed qualitative test result for the clinical management of patients in emergency situations. Chain of custody not maintained. Some onul-lvu-zbwegzo medications, as well as adulterants, may cause inaccurate results. Clinical correlation should be applied. A more comprehensive drug screen or confirmation of a detected drug may be performed upon request.CBC W/PLT COUNT & AUTO [id number] 06:17:00 Test Item Value Reference Range Comments WHITE BLOOD CELL COUNT 4.8 K/ L 3.5-10.5 (BEAKER) (test eapz=716) RED BLOOD CELL COUNT (BEAKER) 4.03 M/ L 3.93-5.22 (test juoj=025) HEMOGLOBIN (BEAKER) (test 7.4 GM/DL 11.2-15.7 mrnj=399) HEMATOCRIT (BEAKER) (test 26.1 % 34.1-44.9 jimn=043) MEAN CORPUSCULAR VOLUME 64.8 fL 79.4-94.8 (BEAKER) (test xcdu=879) MEAN CORPUSCULAR HEMOGLOBIN 18.4 pg 25.6-32.2 (BEAKER) (test qkzj=484) MEAN CORPUSCULAR HEMOGLOBIN 28.4 GM/DL 32.2-35.5 CONC (BEAKER) (test gsme=133) RED CELL DISTRIBUTION WIDTH 26.2 % 11.7-14.4 (BEAKER) (test lpbc=420) PLATELET COUNT (BEAKER) (test 201 K/CU MM 150-450 mezg=829) MEAN PLATELET VOLUME (BEAKER) fL 9.4-12.3 Unable to report due to (test ldcb=236) abnormal Platelet population distribution. NUCLEATED RED BLOOD CELLS 0 /100 WBC 0-0 (BEAKER) (test gjpq=099) NEUTROPHILS RELATIVE PERCENT 46 % (BEAKER) (test arfl=909) LYMPHOCYTES RELATIVE PERCENT 40 % (BEAKER) (test ckwy=967) MONOCYTES RELATIVE PERCENT 8 % (BEAKER) (test gjyb=197) EOSINOPHILS RELATIVE PERCENT 4 % (BEAKER) (test kxwn=041) BASOPHILS RELATIVE PERCENT 1 % (BEAKER) (test pdod=146) NEUTROPHILS ABSOLUTE COUNT 2.20 K/ L 1.56-6.13 (BEAKER) (test xkaq=740) LYMPHOCYTES ABSOLUTE COUNT 1.91 K/ L 1.18-3.74 (BEAKER) (test wmxc=241) MONOCYTES ABSOLUTE COUNT 0.40 K/ L 0.24-0.36 (BEAKER) (test bfuv=449) EOSINOPHILS ABSOLUTE COUNT 0.20 K/ L 0.04-0.36 (BEAKER) (test lsyj=452) BASOPHILS ABSOLUTE COUNT 0.03 K/ L 0.01-0.08 (BEAKER) (test hnic=599) IMMATURE GRANULOCYTES-RELATIVE 0 % 0-1 PERCENT (BEAKER) (test rcqn=0546) HEPATIC FUNCTION [id number] 06:10:00 Test Item Value Reference Range Comments TOTAL PROTEIN (BEAKER) (test wtoq=369) 5.1 gm/dL 6.0-8.3 ALBUMIN (BEAKER) (test sucd=8453) 3.1 g/dL 3.5-5.0 BILIRUBIN TOTAL (BEAKER) (test zomz=499) 0.4 mg/dL 0.2-1.2 BILIRUBIN DIRECT (BEAKER) (test xric=479) 0.2 mg/dL 0.1-0.5 ALKALINE PHOSPHATASE (BEAKER) (test lhbx=072) 545 U/L 40-150 AST (SGOT) (BEAKER) (test esqv=647) 192 U/L 5-34 ALT (SGPT) (BEAKER) (test yrxh=535) 150 U/L 6-55 BASIC METABOLIC [id number] 06:10:00 Test Item Value Reference Range Comments SODIUM (BEAKER) (test 138 meq/L 136-145 sghi=969) POTASSIUM (BEAKER) (test 3.7 meq/L 3.5-5.1 nssq=175) CHLORIDE (BEAKER) (test 105 meq/L 98-107 oyxa=862) CO2 (BEAKER) (test 27 meq/L 22-29 asli=247) BLOOD UREA NITROGEN 9 mg/dL 7-21 (BEAKER) (test zjbi=217) CREATININE (BEAKER) (test 0.53 mg/dL 0.57-1.25 nzir=301) GLUCOSE RANDOM (BEAKER) 78 mg/dL 70-105 (test mvkz=070) CALCIUM (BEAKER) (test 8.5 mg/dL 8.4-10.2 pinp=624) EGFR (BEAKER) (test 127 mL/min/1.73 sq m ESTIMATED GFR IS NOT owik=6994) ACCURATE CREATININE CLEARANCE IN PREDICTING GLOMERULAR FILTRATION RATE. ESTIMATED GFR IS NOT APPLICABLE FOR DIALYSIS PATIENTS. PROTHROMBIN [id number] 05:55:00 Test Item Value Reference Range Comments PROTIME (BEAKER) (test ssno=829) 13.3 seconds 11.7-14.7 INR (BEAKER) (test wgbj=229) 1.0 <=5.9 RECOMMENDED COUMADIN/WARFARIN INR THERAPY RANGESSTANDARD DOSE: 2.0 - 3.0 Includes: PROPHYLAXIS forvenous thrombosis, systemic embolization; TREATMENT for venous thrombosis and/or pulmonary embolus.HIGH RISK: Target INR is 2.5-3.5 for patients with mechanical heart valves.[id number] 18:19:00 Test Item Value Reference Range Comments MAGNESIUM (BEAKER) (test zlqv=513) 2.1 mg/dL 1.6-2.6 COMPREHENSIVE METABOLIC [id number] 18:19:00 Test Item Value Reference Range Comments TOTAL PROTEIN (BEAKER) 6.0 gm/dL 6.0-8.3 (test dsek=129) ALBUMIN (BEAKER) (test 3.7 g/dL 3.5-5.0 clkx=7152) ALKALINE PHOSPHATASE 559 U/L 40-150 (BEAKER) (test umbt=087) BILIRUBIN TOTAL (BEAKER) 0.3 mg/dL 0.2-1.2 (test kqlr=572) SODIUM (BEAKER) (test 138 meq/L 136-145 icqt=347) POTASSIUM (BEAKER) (test 4.3 meq/L 3.5-5.1 tdxr=615) CHLORIDE (BEAKER) (test 104 meq/L 98-107 axik=177) CO2 (BEAKER) (test 24 meq/L 22-29 fmvw=484) BLOOD UREA NITROGEN 14 mg/dL 7-21 (BEAKER) (test wfbt=766) CREATININE (BEAKER) (test 0.67 mg/dL 0.57-1.25 uwpk=341) GLUCOSE RANDOM (BEAKER) 101 mg/dL 70-105 (test iuoh=077) CALCIUM (BEAKER) (test 8.7 mg/dL 8.4-10.2 ceru=234) AST (SGOT) (BEAKER) (test 184 U/L 5-34 nfds=542) ALT (SGPT) (BEAKER) (test 171 U/L 6-55 gpzp=735) EGFR (BEAKER) (test 97 mL/min/1.73 sq m ESTIMATED GFR IS NOT vtyr=1103) ACCURATE CREATININE CLEARANCE IN PREDICTING GLOMERULAR FILTRATION RATE. ESTIMATED GFR IS NOT APPLICABLE FOR DIALYSIS PATIENTS. [id number] 18:19:00 Test Item Value Reference Range Comments LIPASE (BEAKER) (test owyb=581) 24 U/L 8-78 URINALYSIS [id number] 18:17:00 Test Item Value Reference Range Comments RBC UA (BEAKER) (test jihy=202) 2 /HPF WBC UA (BEAKER) (test qavj=570) 4 /HPF MUCUS (BEAKER) (test fhvz=2079) Many SQUAMOUS EPITHELIAL (BEAKER) (test tawx=333) 2 /HPF URINALYSIS WITH MICROSCOPIC IF [id number] 18:16:00 Test Item Value Reference Range Comments COLOR (BEAKER) (test xgbv=418) Yellow CLARITY (BEAKER) (test woef=222) Clear SPECIFIC GRAVITY UA (BEAKER) (test mfoh=270) 1.027 1.001-1.035 PH UA (BEAKER) (test mmhw=765) 5.5 5.0-8.0 PROTEIN UA (BEAKER) (test pxtd=099) 20 mg/dL Negative GLUCOSE UA (BEAKER) (test hogb=379) Negative Negative KETONES UA (BEAKER) (test mily=427) Negative Negative BILIRUBIN UA (BEAKER) (test nqyv=416) Negative Negative BLOOD UA (BEAKER) (test xdwd=728) Moderate Negative NITRITE UA (BEAKER) (test ohml=761) Negative Negative LEUKOCYTE ESTERASE UA (BEAKER) (test aoyk=323) Small Negative UROBILINOGEN UA (BEAKER) (test orai=278) 3.0 mg/dL 0.2-1.0 SOURCE(BEAKER) (test hxho=6486) CBC W/PLT COUNT & AUTO [id number] 18:01:00 Test Item Value Reference Range Comments WHITE BLOOD CELL COUNT 7.8 K/ L 3.5-10.5 (BEAKER) (test caek=377) RED BLOOD CELL COUNT (BEAKER) 4.17 M/ L 3.93-5.22 (test nena=664) HEMOGLOBIN (BEAKER) (test 8.0 GM/DL 11.2-15.7 sunu=823) HEMATOCRIT (BEAKER) (test 26.6 % 34.1-44.9 avhh=302) MEAN CORPUSCULAR VOLUME 63.8 fL 79.4-94.8 (BEAKER) (test sedt=326) MEAN CORPUSCULAR HEMOGLOBIN 19.2 pg 25.6-32.2 (BEAKER) (test aecl=096) MEAN CORPUSCULAR HEMOGLOBIN 30.1 GM/DL 32.2-35.5 CONC (BEAKER) (test tfij=780) RED CELL DISTRIBUTION WIDTH 26.1 % 11.7-14.4 (BEAKER) (test zkum=871) PLATELET COUNT (BEAKER) (test 283 K/CU MM 150-450 qygi=571) MEAN PLATELET VOLUME (BEAKER) fL 9.4-12.3 Unable to report due to (test phet=002) abnormal Platelet population distribution. NUCLEATED RED BLOOD CELLS 0 /100 WBC 0-0 (BEAKER) (test srfp=566) NEUTROPHILS RELATIVE PERCENT 61 % (BEAKER) (test qbtu=661) LYMPHOCYTES RELATIVE PERCENT 26 % (BEAKER) (test gpke=437) MONOCYTES RELATIVE PERCENT 8 % (BEAKER) (test dflm=904) EOSINOPHILS RELATIVE PERCENT 5 % (BEAKER) (test ocqr=851) BASOPHILS RELATIVE PERCENT 0 % (BEAKER) (test nlob=718) NEUTROPHILS ABSOLUTE COUNT 4.72 K/ L 1.56-6.13 (BEAKER) (test ptfw=110) LYMPHOCYTES ABSOLUTE COUNT 2.01 K/ L 1.18-3.74 (BEAKER) (test zjzc=687) MONOCYTES ABSOLUTE COUNT 0.63 K/ L 0.24-0.36 (BEAKER) (test iwxd=807) EOSINOPHILS ABSOLUTE COUNT 0.35 K/ L 0.04-0.36 (BEAKER) (test qequ=219) BASOPHILS ABSOLUTE COUNT 0.03 K/ L 0.01-0.08 (BEAKER) (test flvl=417) IMMATURE GRANULOCYTES-RELATIVE 0 % 0-1 PERCENT (BEAKER) (test fexs=0752) ANKLE 3 [id number] 20:42:[address] [id number] IMAGING REPORTPatient Name: BABATUNDE CHAMBERS ADate of Service: [id number]: 42 Sex: F Order #: [id number] [facility] 1975 [facility] Number: [id number] Record Number: [id number] Hospital Number: [id number] Physician: HO, COLIN SOrdering Physician : ELAINE [...] authenticated by EREN BURDICK 2018-03-19 20:39:41US RENAL [id number] 04:43:[place] [id number] IMAGING REPORTPatient Name: BABATUNDE CHAMBERS ADate of Service: [id number]: 41 Sex: F Order #: [id number] Room: ERSDOB : 1975 X-Ray Number: [id number] Record Number: [id number] Hospital Number: [id number] Physician: MARY CHUNGOrderp[facility] Physician : Duane CHUNGateral renal and [...] BRANDI MORAES V 2017-02-27 04:41:36CT ABDOMEN/ PELVIS [id number] 23:27:[address] [id number] IMAGING REPORTPatient Name: BABATUNDE CHAMBERS ADate of Service: [id number]: 41 Sex: F Order #: [id number] Room: ERSDOB : 1975 X-Ray Number: [id number] Record Number: [id number] Hospital Number: [id number] Physician: TYESHA BLANK TANOrdering Physician: ARCELIA DARNELL [...]
--- NOTE | 2019-12-18 19:59 | RAD REPORT ---
EXAM DESCRIPTION: CT - Abdomen Pelvis Wo Contrast - 12/18/2019 7:51 pm CLINICAL HISTORY: Abdominal pain. GI BLEED COMPARISON: No comparisons TECHNIQUE: CT imaging of the abdomen and pelvis was performed without contrast. Solid organ, bowel a nd vascular assessment is limited due to lack of IV and oral contrast. All CT scans are performed using dose optimization technique as appropriate and may include automated exposure control or mA/KV adjustment according to patient size. FINDINGS: The lower lung moffett are clear.Postsurgical changes are present about the stomach. The liver, spleen, pancreas, adrenal glands and kidneys are within normal limits for a limited non-co ntrast examination.Cholecystectomy. No bowel obstruction, free air, free fluid or abscess. Moderate stool is present in the colon. Append ectomy. The osseous structures are within normal limits. IMPRESSION: No acute intra-abdominal or pelvic findings. A limited non-contrast examination was performed as detailed.
[2019-12-18 20:08] LABS: Hematocrit 25.7 % (36.0-45.0); MPV 9.1 fL (7.6-11.3); RBC Red Blood Cell Count 4.31 M/uL (3.86-4.86)
[2019-12-18 20:18] LABS: ALT/SGPT 19 U/L (12-78); AST/SGOT 15 U/L (15-37); Albumin 3.1 g/dL (3.4-5.0); Alkaline Phosphatase 84 U/L (45-117); BUN Blood Urea Nitrogen 13 mg/dL (7-18); Bicarbonate 25 mmol/L (21-32); Bilirubin Direct < 0.1 mg/dL (0-0.2); Bilirubin Total 0.2 mg/dL (0.2-1.0); Glucose Level 82 mg/dL (74-106); Lipase 206 U/L (73-393); Potassium 3.4 mmol/L (3.5-5.1); Protein, Total 6.2 g/dL (6.4-8.2); Sodium Level 145 mmol/L (136-145)
[2019-12-18] MEDS ORDERED: dexAMETHasone 10 MG/ML VIAL ONE (20:28)
[2019-12-18] MEDS ORDERED: DIPHENHYDRAMINE 50 MG/ML VIAL ONE (20:28)
--- NOTE | 2019-12-18 20:45 | ER ---
Nurse's Notes [facility] Name: Moira Saldaña Age: 44 yrs Sex: Female : 1975 Arrival Date: 12/18/2019 Time: 18:05 Bed 7 Private MD: Diagnosis: Headache;Anemia, unspecified-hx of thalassemia;Vomiting Presentation: 12/18 18:05 Presenting complaint: Patient states: seen in ER yesterday for headache, dizziness and ss near syncope. Pt is here today because she had an episode of bloody emesis x1 today and dark stool yesterday. Transition of care: patient was not received from another setting of care. Onset of symptoms was December 17, 2019. Risk Assessment: Do you want to hurt yourself or someone else? Patient reports no desire to harm self or others. Initial Sepsis Screen: Does the patient meet any 2 criteria? No. Patient's initial sepsis screen is negative. Does the patient have a suspected source of infection? No. Patient's initial sepsis screen is negative. Care prior to arrival: None. 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 - Coronavirus screen:: The patient has NOT traveled to [place], [place], or [place] in the past 14 days. Proceed with normal triage process as indicated. - Social history:: Smoking status: Patient denies any tobacco usage or history of. - Ebola Screening: : Patient denies exposure to infectious person Patient denies travel to an Ebola-affected area in the 21 days before illness onset. Screenin:46 Abuse screen: Denies threats or abuse. Denies injuries from another. Nutritional ph screening: No deficits noted. Tuberculosis screening: No symptoms or risk factors identified. Fall Risk None identified. Assessment: 18:15 General: Appears in no apparent distress. comfortable, well groomed, Behavior is calm, ph cooperative, appropriate for age. Pain: Complains of pain in head. Neuro: Level of Consciousness is awake, alert, obeys commands, Oriented to person, place, time, situation. Cardiovascular: Capillary refill < 3 seconds in bilateral fingers Patient's skin is warm and dry. Respiratory: Airway is patent Respiratory effort is even, unlabored, Respiratory pattern is regular, symmetrical. GI: Reports blood in vomitus and "coffee ground" stool. Derm: Skin is intact, Skin is pink, warm \\T\\ dry. Musculoskeletal: Circulation, motion, and sensation intact. Range of motion: intact in all extremities. 19:20 Reassessment: Patient requests to go outside and smoke, patient instructed that this is vc a non smoking facility. Patient verbalized understanding. Patient went outside. 19:35 Reassessment: Patient returned from outside. vc 19:50 Reassessment: Patient to x ray via wheelchair. vc 20:20 Reassessment: Patient and/or family updated on plan of care and expected duration. Pain vc level reassessed. Provider at bedside. Patient states feeling better. 21:00 Reassessment: Patient laying down watching television. No needs or complaints at this vc time, patient waiting on a ride for discharge. Vital Signs: 18:12 BP 105 / 73; Pulse 90; Resp 15; Temp 98.4(O); Pulse Ox 100% on R/A; Weight 72.57 kg; ss Height 5 ft. 4 in. (162.56 cm); Pain 5/10; 20:58 BP 101 / 67; Pulse 80; Resp 17; Pulse Ox 98% on R/A; rv 18:12 Body Mass Index 27.46 (72.57 kg, 162.56 cm) ED Course: 18:05 Patient arrived in ED. 18:06 Nichole Garcia, RN is Primary Nurse. ph 18:08 Triage completed. ss 18:12 Arm band placed on right wrist. ss 18:50 Patient has correct armband on for positive identification. Bed in low position. Call ph light in reach. Side rails up X 1. Pulse ox on. NIBP on. Door closed. Noise minimized. 18:51 Winston Coulter NP is PHCP. pm1 18:51 Geovanny Esparza MD is Attending Physician. pm1 19:30 Urine collected: clean catch specimen, clear. kj1 19:35 Initial lab(s) drawn, by me, sent to lab. Inserted saline lock: 22 gauge in left kj1 antecubital area, using aseptic technique. Blood collected. 19:52 CT completed. Patient tolerated procedure well. Patient moved back from CT. bq 19:52 CT Abd/Pelvis - Without Contrast In Process Unspecified. EDMS 20:17 Notified Nurse Practitioner and/or Physician Commercial Illustrator of a critical lab result(s), fc hemoglobin 7.8, hematocrit 25.7. 20:21 Served as a sas etl developer during rectal exam. lp1 20:59 IV discontinued, intact, bleeding controlled, No redness/swelling at site. Pressure rv dressing applied. Administered Medications: 20:30 Drug: Benadryl 25 mg Route: IVP; Site: left antecubital; rv 20:58 Follow up: Response: Marked relief of symptoms rv 20:30 Drug: Decadron - Dexamethasone 10 mg Route: IVP; Site: left antecubital; rv 20:58 Follow up: Response: No adverse reaction rv Point of Care Testing: Guaiac: 20:21 Stool Guaiac: Negative; Stool Hemoccult Control: Pass; lp1 Outcome: 20:44 Discharge ordered by . pm1 20:58 Discharged to Rehab Facility rv 20:58 Condition: good 20:58 Discharge instructions given to patient, integration developer, Instructed on discharge instructions, follow up and referral plans. Demonstrated understanding of instructions, follow-up care. 21:13 Patient left the ED. ar5 Signatures: Dispatcher [employer] EDMS Jasmin Bella Felicia, RN RN Sally Meyer RN RN Korina Moore RN RN lp1 Nichole Garcia RN RN Winston Veras, PROCESS COORDINATOR PROCESS COORDINATOR pm1 Donavan Espinoza RN RN rv Robles, Autumn ar5 Kelle May kj1 Jeniffer Jones RN RN vc Corrections: (The following items were deleted from the chart) 19:44 Initial lab(s) drawn, by me, sent to lab. kj1 kj 19:44 Inserted saline lock: 22 gauge in left antecubital area, using aseptic technique. kj1 Blood collected. [facility] : 20:20 Reassessment: Provider at bedside. vc vc
--- NOTE | 2019-12-18 20:46 | EDPHYS ---
Physician Documentation [facility] Name: Moira Saldaña Age: 44 yrs Sex: Female : 1975 Arrival Date: 12/18/2019 Time: 18:05 Bed 7 Private MD: ED Physician Geovanny Esparza HPI: 12/18 20:16 This 44 yrs old Female presents to ER via EMS with complaints of vomiting pm1 blood, dark stool, Dizziness. 20:16 The patient presents to the emergency department vomiting blood, reports bright red pm1 blood in vomit x 1 today, with rectal bleeding, reports one episode of "coffee ground" diarrhea yesterday. Onset: The symptoms/episode began/occurred yesterday. Abdominal pain: none is appreciated. Modifying factors: The symptoms are alleviated by nothing, the symptoms are aggravated by nothing. Associated signs and symptoms: Pertinent positives: headache, dizziness, Pertinent negatives: chest pain, fever, shortness of breath. reports vomiting bright red blood once in the past with her pancreatitis. The patient has not recently seen a physician, has an appointment scheduled, Friday at the clinic. Patient current staying at [facility] for drug rehabilitation . 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 - Coronavirus screen:: The patient has NOT traveled to [place], [place], or [place] in the past 14 days. Proceed with normal triage process as indicated. - Social history:: Smoking status: Patient denies any tobacco usage or history of. - Ebola Screening: : Patient denies exposure to infectious person Patient denies travel to an Ebola-affected area in the 21 days before illness onset. ROS: 20:16 Constitutional: Negative for fever, chills, and weight loss, Neck: Negative for injury, pm1 pain, and swelling, Cardiovascular: Negative for chest pain, palpitations, and edema, Respiratory: Negative for shortness of breath, cough, wheezing, and pleuritic chest pain. 20:16 Back: Negative for injury and pain, : Negative for injury, bleeding, discharge, and swelling, MS/Extremity: Negative for injury and deformity, Skin: Negative for injury, rash, and discoloration. 20:16 Abdomen/GI: Positive for hematemesis, black/tarry stool, Negative for abdominal pain, constipation. 20:16 Neuro: Positive for dizziness, headache, Negative for loss of consciousness, numbness, tingling, weakness. Exam: 20:16 Abdomen/GI: Rectal exam: is unremarkable, rectal tone normal, Stool: brown, guaiac pm1 negative, hemorrhoid(s), are not appreciated, mass, is not appreciated, swelling, is not appreciated, tenderness, is not appreciated, Korina RAMEY chaperoned. 20:16 Constitutional: This is a well developed, well nourished patient who is awake, alert, pm1 and in no acute distress. Head/Face: Normocephalic, atraumatic. Eyes: Pupils equal round and reactive to light, extra-ocular motions intact. Lids and lashes normal. Conjunctiva and sclera are non-icteric and not injected. Cornea within normal limits. Periorbital areas with no swelling, redness, or edema. ENT: Nares patent. No nasal discharge, no septal abnormalities noted. Tympanic membranes are normal and external auditory canals are clear. Oropharynx with no redness, swelling, or masses, exudates, or evidence of obstruction, uvula midline. Mucous membranes moist. Neck: Trachea midline, no thyromegaly or masses palpated, and no cervical lymphadenopathy. Supple, full range of motion without nuchal rigidity, or vertebral point tenderness. No Meningismus. Chest/axilla: Normal chest wall appearance and motion. Nontender with no deformity. No lesions are appreciated. Cardiovascular: Regular rate and rhythm with a normal S1 and S2. No gallops, murmurs, or rubs. Normal PMI, no JVD. No pulse deficits. Respiratory: Lungs have equal breath sounds bilaterally, clear to auscultation and percussion. No rales, rhonchi or wheezes noted. No increased work of breathing, no retractions or nasal flaring. Abdomen/GI: Soft, non-tender, with normal bowel sounds. No distension or tympany. No guarding or rebound. No evidence of tenderness throughout. Back: No spinal tenderness. No costovertebral tenderness. Full range of motion. Skin: Warm, dry with normal turgor. Normal color with no rashes, no lesions, and no evidence of cellulitis. MS/ Extremity: Pulses equal, no cyanosis. Neurovascular intact. Full, normal range of motion. 20:16 Neuro: Orientation: is normal, Motor: moves all fours, Gait: is steady, at a normal pace, without difficulty. Vital Signs: 18:12 BP 105 / 73; Pulse 90; Resp 15; Temp 98.4(O); Pulse Ox 100% on R/A; Weight 72.57 kg; ss Height 5 ft. 4 in. (162.56 cm); Pain 5/10; 20:58 BP 101 / 67; Pulse 80; Resp 17; Pulse Ox 98% on R/A; rv 18:12 Body Mass Index 27.46 (72.57 kg, 162.56 cm) ss MDM: 18:51 Patient medically screened. pm1 18:55 Data reviewed: vital signs. Data interpreted: Pulse oximetry: on room air is 100 %. pm1 Interpretation: normal. 20:42 Counseling: I had a detailed discussion with the patient and/or guardian regarding: the pm1 historical points, exam findings, and any diagnostic results supporting the discharge/admit diagnosis, lab results, radiology results, the need for outpatient follow up, to return to the emergency department if symptoms worsen or persist or if there are any questions or concerns that arise at home. 20:54 ED course: patient's headache improved with medications given in the ER. pm1 12/18 19:00 Order name: Basic Metabolic Panel; Complete Time: 20:19 pm1 12/18 19:00 Order name: CBC with Diff; Complete Time: 21:27 pm1 12/18 19:00 Order name: Creatinine for Radiology; Complete Time: 20:12 pm12/18 19:00 Order name: Hepatic Function; Complete Time: 20:19 pm12/18 19:00 Order name: Lipase; Complete Time: 20:19 pm12/18 19:00 Order name: Type And Screen; Complete Time: 20:34 pm12/18 19:00 Order name: IV Saline Lock; Complete Time: 20:14 pm 12/18 19:00 Order name: CT Abd/Pelvis - Without Contrast; Complete Time: 20:12 [facility] 12/18 19:57 Order name: Urine Dipstick--Ancillary (enter results) [facility] 12/18 19:57 Order name: Urine --Ancillary (enter results) [facility] 12/18 19:58 Order name: Urine Dipstick-Ancillary [facility] 12/18 20:20 Order name: Manual Differential; Complete Time: 21:27 [facility] 12/18 19:00 Order name: Labs collected and sent; Complete Time: 20:14 [facility] 12/18 19:00 Order name: Urine Dipstick-Ancillary (obtain specimen); Complete Time: 20:14 [facility] 12/18 19:00 Order name: Urine Test (obtain specimen); Complete Time: 20:14 pm1 Administered Medications: 20:30 Drug: Benadryl 25 mg Route: IVP; Site: left antecubital; rv 20:58 Follow up: Response: Marked relief of symptoms rv 20:30 Drug: Decadron - Dexamethasone 10 mg Route: IVP; Site: left antecubital; rv 20:58 Follow up: Response: No adverse reaction rv Point of Care Testing: Guaiac: 20:21 Stool Guaiac: Negative; Stool Hemoccult Control: Pass; lp1 Disposition: 12/18/19 20:44 Discharged to Home. Impression: Headache, Anemia, unspecified - hx of thalassemia, Vomiting. - Condition is Stable. - Discharge Instructions: Anemia, Nonspecific, General Headache Without Cause, Vomiting, Adult. - Medication Reconciliation Form, Thank You Letter, Antibiotic Education, Prescription Opioid Use form. - Follow up: Emergency Department; When: As needed; Reason: Worsening of condition. Follow up: Private Physician; When: 2 - 3 days; Reason: Recheck today's complaints, Continuance of care, Re-evaluation by your physician. - Problem is new. - Symptoms have improved. Addendum: 12/19/2019 21:20 Co-signature as Attending Physician, Geovanny Esparza MD I agree with the assessment and k dr plan of care. Signatures: Dispatcher [employer] EDMO Geovanny Esparza MD MD [facility] Sally Meyer RN RN ss Winston Coulter, TIPPLE BOSS TIPPLE BOSS pm1 Donavan Espinoza RN RN Lois Hernández ar5 Corrections: (The following items were deleted from the chart) 12/18 21:13 20:44 12/18/2019 20:44 Discharged to Home. Impression: Headache; Anemia, unspecified - ar5 hx of thalassemia; Vomiting. Condition is Stable. Forms are Medication Reconciliation Form, Thank You Letter, Antibiotic Education, Prescription Opioid Use. Follow up: Emergency Department; When: As needed; Reason: Worsening of condition. Follow up: Private Physician; When: 2 - 3 days; Reason: Recheck today's complaints, Continuance of care, Re-evaluation by your physician. Problem is new. Symptoms have improved. pm1
[2019-12-18 20:50] LABS: Platelet Estimate ADEQ
[2019-12-18 20:51] LABS: Anisocytosis 1+; Blood Morphology Comment NOTED (NOT SEEN)
[2019-12-18 20:52] LABS: Hypochromasia 2+
[2019-12-18 21:19] VITALS: TEMP 98.4
[2019-12-18 21:21] VITALS: BP 101/67; O2SAT 98
[2019-12-18 22:08] LABS: Urine Blood NEGATIVE (NEG); Urine Glucose NEGATIVE (NEG); Urine Protein NEGATIVE (NEG); Urine pH 5.5 (5.0-7.0)
== END 2019-12-18 21:13 | disposition home or self-care (01) ==
LOC: ER 17:59
DX: R51 Headache (principal); D64.9 Anemia, unspecified; R11.10 Vomiting, unspecified; Z91.012 Allergy to eggs; Z88.0 Allergy status to penicillin; Z91.013 Allergy to seafood; D56.9 Thalassemia, unspecified
CPT/HCPCS: 36415; 74176; 80048; 80076; 81003; 81025; 83690; 85025; 86850; 86900; 86901; 96374; 96375; 99285; J1100; J1200

== ENCOUNTER 2019-12-19 19:09 | Emergency (ER) | payer SELFPAY ==
--- OUTSIDE RECORDS SUMMARY | 2019-12-19 19:13 | XMS REPORT ---
:1975 [facility] Address [address] [place] [address] [address]. [address] [place] [address] Care Team Providers Name Role Phone MAREN WEI Primary Care Provider Unavailable HEIKEKONSTANTINALEX SHEPARDHELEN CHÁVEZALD Unavailable Unavailable RAKESH JUSTICE Unavailable Unavailable Problems This patient has no known problems. Allergies, Adverse Reactions, Alerts This patient has no known allergies or adverse reactions. Medications This patient has no known medications. Encounters Start End Encounter Admission Attending Care Care Encounter Date/Time Date/Time Type Type Clinicians Facility Department ID 2017-02-23 2017-02-23 [id number] 16:08:00 16:08:00 Results Test Description Test Time Test Comments Text Results Atomic Results Result Comments RAD, CHEST, 2 2018-09-15 22:33:00 Reason for FINAL REPORT PATIENT ID: VIEWS exam:->COUGH [id number] TECHNIQUE: 2 views of the chest. COMPARISON: None FINDINGS: The cardiac silhouette is within normal limits. Mediastinum is unremarkable. Lungs are clear. Osseous structures appear unremarkable. Surgical clips in the upper abdomen. IMPRESSION: No acute cardiopulmonary disease. Signed: Kristopher Haynes MDReport Verified Date/Time: 09/15/2018 22:33:09 Reading Location: [facility] Mammo Reading Room E DRUG SCREEN [...] NEGATIVE NEGATIVE PCP (test code=BMTPCP) NEGATIVE NEGATIVE [id number] 21:52:00 Test Item Value Reference Range Comments [...] code=URMUCOUS) MUCH /LPF NONE HEPATITIS C ANTIBODY [id number] 10:45:00 Test Item Value Reference Range Comments [...] and confirmation results will follow. URINE DRUG [id number] 18:04:00 Test Item Value Reference Range Comments [...] NEGATIVE NEGATIVE PCP (test code=BMTPCP) NEGATIVE NEGATIVE [id number] 17:43:00 Test Item Value Reference Range Comments [...] only. Not intended for non medical purposes. [id number] 17:10:00 Test Item Value Reference Range Comments SODIUM (test code=NA) 141 MMOL/L 137-145 K+ (test code=KSERUM) 4.4 MMOL/L 3.5-5.1 PLEASE NOTE NEW REFERENCE RANGE(S) IN EFFECT EFFECTIVE 06/28/2010 - NEW ANALYZER ([employer] 5600) CHLORIDE (test code=CL) 108 MMOL/L 98-107 CO2 (test code=CO2) 28 MMOL/L 22-30 BUN (test code=BUN) 16 MG/DL 7-17 CREA (test code=CREA) 0.5 MG/DL 0.7-1.2 GLUCOSE (test 92 MG/DL 70-99 Fasting glucose normal code=GLUCOSE) <100 MG/DL- [employer] recommendation CALCIUM (test 8.5 MG/DL 8.4-10.2 code=CABLOOD) TOTPROT (test 5.8 G/DL 6.3-8.2 code=TOTPROT) ALBUMIN (test 3.3 G/DL 3.5-5.0 code=ALBSERUM) BILITOT (test <0.1 MG/DL 0.2-1.3 code=BILITOT) AST (test code=AST) 20 U/L 15-46 PHOSALK (test 74 U/L 38-126 code=PHOSALK) ALT (test code=ALT) 29 U/L 13-69 GFR (test code=GFR) 144 mL/min/1.73m2 A GFR of >90 mL/min/1.73m2 is considered normal. CREATINE [id number] 17:10:00 Test Item Value Reference Range Comments CK (test code=CK) 33 U/L 30-135 [id number] 16:37:00 Test Item Value Reference Range Comments [...] NEUT (test code=NEUT) 3.6 K/UL 1.2-7.2 POCT-GLUCOSE [id number] 07:47:00 Test Item Value Reference Range Comments POC-GLUCOSE METER (BEAKER) 87 mg/dL 70-110 TESTED AT [address] (test xgdk=4170) [facility] [address] BASIC METABOLIC [id number] 05:15:00 Test Item Value Reference Range Comments SODIUM (BEAKER) (test 140 meq/L 136-145 dkgg=345) POTASSIUM (BEAKER) (test 4.2 meq/L 3.5-5.1 rxji=076) CHLORIDE (BEAKER) (test 108 meq/L 98-107 ktcv=344) CO2 (BEAKER) (test 23 meq/L 22-29 lvzs=100) BLOOD UREA NITROGEN 6 mg/dL 7-21 (BEAKER) (test xgty=399) CREATININE (BEAKER) (test 0.61 mg/dL 0.57-1.25 carc=595) GLUCOSE RANDOM (BEAKER) 80 mg/dL 70-105 (test qgpz=631) CALCIUM (BEAKER) (test 8.4 mg/dL 8.4-10.2 owxz=643) EGFR (BEAKER) (test 108 mL/min/1.73 sq m ESTIMATED GFR IS NOT ymrn=0649) ACCURATE CREATININE CLEARANCE IN PREDICTING GLOMERULAR FILTRATION RATE. ESTIMATED GFR IS NOT APPLICABLE FOR DIALYSIS PATIENTS. HEMOGLOBIN AND [id number] 04:48:00 Test Item Value Reference Range Comments HEMOGLOBIN (BEAKER) (test qgcx=371) 8.2 GM/DL 11.2-15.7 HEMATOCRIT (BEAKER) (test qlvf=946) 28.6 % 34.1-44.9 [id number] 22:06:00 Test Item Value Reference Range Comments PROTIME (BEAKER) (test hfsg=339) 17.2 seconds 11.7-14.7 INR (BEAKER) (test mgpf=106) 1.4 <=5.9 PARTIAL THROMBOPLASTIN TIME (BEAKER) (test 35.4 seconds 22.5-36.0 fgci=854) RECOMMENDED COUMADIN/WARFARIN INR THERAPY RANGESSTANDARD DOSE: 2.0 - 3.0 Includes: PROPHYLAXIS forvenous thrombosis, systemic embolization; TREATMENT for venous thrombosis and/or pulmonary embolus.HIGH RISK: Target INR is 2.5-3.5 for patients with mechanical heart valves.[id number] 18:03:00 Test Item Value Reference Range Comments MAGNESIUM (BEAKER) (test 2.2 mg/dL 1.6-2.6 Specimen slightly hemolyzed cnmj=647) BASIC METABOLIC [id number] 18:03:00 Test Item Value Reference Range Comments SODIUM (BEAKER) (test 141 meq/L 136-145 iuug=203) POTASSIUM (BEAKER) (test 4.2 meq/L 3.5-5.1 Specimen slightly vqjz=574) hemolyzed CHLORIDE (BEAKER) (test 107 meq/L 98-107 trbc=180) CO2 (BEAKER) (test 23 meq/L 22-29 depx=647) BLOOD UREA NITROGEN 4 mg/dL 7-21 (BEAKER) (test nkis=969) CREATININE (BEAKER) (test 0.63 mg/dL 0.57-1.25 Specimen slightly epfw=867) hemolyzed GLUCOSE RANDOM (BEAKER) 68 mg/dL 70-105 (test esja=416) CALCIUM (BEAKER) (test 8.9 mg/dL 8.4-10.2 ekdb=611) EGFR (BEAKER) (test 104 mL/min/1.73 sq m ESTIMATED GFR IS NOT gbtq=8748) ACCURATE CREATININE CLEARANCE IN PREDICTING GLOMERULAR FILTRATION RATE. ESTIMATED GFR IS NOT APPLICABLE FOR DIALYSIS PATIENTS. POCT-GLUCOSE [id number] 13:00:00 Test Item Value Reference Range Comments POC-GLUCOSE METER (BEAKER) 98 mg/dL 70-110 TESTED AT [address] (test uzxd=3678) [facility] [address] POCT-GLUCOSE [id number] 07:30:00 Test Item Value Reference Range Comments POC-GLUCOSE METER (BEAKER) 93 mg/dL 70-110 TESTED AT [address] (test qdte=1263) [facility] [address] CBC W/PLT COUNT & AUTO [id number] 06:43:00 Test Item Value Reference Range Comments WHITE BLOOD CELL COUNT 4.5 K/ L 3.5-10.5 (BEAKER) (test diyd=240) RED BLOOD CELL COUNT (BEAKER) 4.03 M/ L 3.93-5.22 (test xfhw=996) HEMOGLOBIN (BEAKER) (test 7.7 GM/DL 11.2-15.7 dfit=842) HEMATOCRIT (BEAKER) (test 27.4 % 34.1-44.9 fttp=756) MEAN CORPUSCULAR VOLUME 68.0 fL 79.4-94.8 (BEAKER) (test fsvp=509) MEAN CORPUSCULAR HEMOGLOBIN 19.1 pg 25.6-32.2 (BEAKER) (test vbzn=253) MEAN CORPUSCULAR HEMOGLOBIN 28.1 GM/DL 32.2-35.5 CONC (BEAKER) (test mowa=189) RED CELL DISTRIBUTION WIDTH 25.7 % 11.7-14.4 (BEAKER) (test hebp=471) PLATELET COUNT (BEAKER) (test 235 K/CU MM 150-450 onjz=685) MEAN PLATELET VOLUME (BEAKER) fL 9.4-12.3 Unable to report due to (test qdpb=172) abnormal Platelet population distribution. NUCLEATED RED BLOOD CELLS 0 /100 WBC 0-0 (BEAKER) (test dvwv=165) NEUTROPHILS RELATIVE PERCENT 57 % (BEAKER) (test ypep=677) LYMPHOCYTES RELATIVE PERCENT 30 % (BEAKER) (test vmwn=847) MONOCYTES RELATIVE PERCENT 8 % (BEAKER) (test kidf=582) EOSINOPHILS RELATIVE PERCENT 5 % (BEAKER) (test tlsa=823) BASOPHILS RELATIVE PERCENT 0 % (BEAKER) (test aayo=769) NEUTROPHILS ABSOLUTE COUNT 2.58 K/ L 1.56-6.13 (BEAKER) (test djpt=249) LYMPHOCYTES ABSOLUTE COUNT 1.36 K/ L 1.18-3.74 (BEAKER) (test wdpp=168) MONOCYTES ABSOLUTE COUNT 0.36 K/ L 0.24-0.36 (BEAKER) (test issw=424) EOSINOPHILS ABSOLUTE COUNT 0.21 K/ L 0.04-0.36 (BEAKER) (test sihu=771) BASOPHILS ABSOLUTE COUNT 0.02 K/ L 0.01-0.08 (BEAKER) (test iqzj=401) IMMATURE GRANULOCYTES-RELATIVE 0 % 0-1 PERCENT (BEAKER) (test ijta=4853) POCT-GLUCOSE [id number] 22:04:00 Test Item Value Reference Range Comments POC-GLUCOSE METER (BEAKER) 87 mg/dL 70-[address] [facility] [address] [facility] (test uppc=4666) [facility] [address] [id number] 15:12:00 Test Item Value Reference Range Comments LIPASE (BEAKER) (test ekdk=948) 7 U/L 8-78 BASIC METABOLIC [id number] 15:12:00 Test Item Value Reference Range Comments SODIUM (BEAKER) (test 142 meq/L 136-145 rcad=474) POTASSIUM (BEAKER) (test 3.7 meq/L 3.5-5.1 jnna=024) CHLORIDE (BEAKER) (test 107 meq/L 98-107 gxck=829) CO2 (BEAKER) (test 27 meq/L 22-29 hoxa=523) BLOOD UREA NITROGEN 5 mg/dL 7-21 (BEAKER) (test qzhj=882) CREATININE (BEAKER) (test 0.57 mg/dL 0.57-1.25 xsph=089) GLUCOSE RANDOM (BEAKER) 82 mg/dL 70-105 (test yfpw=705) CALCIUM (BEAKER) (test 8.6 mg/dL 8.4-10.2 lyrs=539) EGFR (BEAKER) (test 116 mL/min/1.73 sq m ESTIMATED GFR IS NOT mpxi=2999) ACCURATE CREATININE CLEARANCE IN PREDICTING GLOMERULAR FILTRATION RATE. ESTIMATED GFR IS NOT APPLICABLE FOR DIALYSIS PATIENTS. HEPATIC FUNCTION [id number] 15:12:00 Test Item Value Reference Range Comments TOTAL PROTEIN (BEAKER) (test ajnn=186) 5.9 gm/dL 6.0-8.3 ALBUMIN (BEAKER) (test mpqq=1693) 3.4 g/dL 3.5-5.0 BILIRUBIN TOTAL (BEAKER) (test brwx=484) 0.3 mg/dL 0.2-1.2 BILIRUBIN DIRECT (BEAKER) (test sbxn=624) 0.2 mg/dL 0.1-0.5 ALKALINE PHOSPHATASE (BEAKER) (test hsul=642) 267 U/L 40-150 AST (SGOT) (BEAKER) (test jgdn=634) 16 U/L 5-34 ALT (SGPT) (BEAKER) (test dxub=868) 15 U/L 6-55 CBC W/PLT COUNT & AUTO [id number] 15:00:00 Test Item Value Reference Range Comments WHITE BLOOD CELL COUNT 6.7 K/ L 3.5-10.5 (BEAKER) (test qkje=032) RED BLOOD CELL COUNT (BEAKER) 4.47 M/ L 3.93-5.22 (test uaal=689) HEMOGLOBIN (BEAKER) (test 8.4 GM/DL 11.2-15.7 kjui=550) HEMATOCRIT (BEAKER) (test 28.9 % 34.1-44.9 ruvc=136) MEAN CORPUSCULAR VOLUME 64.7 fL 79.4-94.8 (BEAKER) (test jdig=760) MEAN CORPUSCULAR HEMOGLOBIN 18.8 pg 25.6-32.2 (BEAKER) (test fppz=754) MEAN CORPUSCULAR HEMOGLOBIN 29.1 GM/DL 32.2-35.5 CONC (BEAKER) (test whgw=933) RED CELL DISTRIBUTION WIDTH 25.3 % 11.7-14.4 (BEAKER) (test vjap=107) PLATELET COUNT (BEAKER) (test 318 K/CU MM 150-450 uklt=563) MEAN PLATELET VOLUME (BEAKER) fL 9.4-12.3 Unable to report due to (test iiba=422) abnormal Platelet population distribution. NUCLEATED RED BLOOD CELLS 0 /100 WBC 0-0 (BEAKER) (test rgql=576) NEUTROPHILS RELATIVE PERCENT 57 % (BEAKER) (test kqjw=448) LYMPHOCYTES RELATIVE PERCENT 31 % (BEAKER) (test igsa=579) MONOCYTES RELATIVE PERCENT 8 % (BEAKER) (test zzkv=499) EOSINOPHILS RELATIVE PERCENT 3 % (BEAKER) (test lhif=134) BASOPHILS RELATIVE PERCENT 0 % (BEAKER) (test xzof=896) NEUTROPHILS ABSOLUTE COUNT 3.82 K/ L 1.56-6.13 (BEAKER) (test zezp=680) LYMPHOCYTES ABSOLUTE COUNT 2.08 K/ L 1.18-3.74 (BEAKER) (test viqg=582) MONOCYTES ABSOLUTE COUNT 0.56 K/ L 0.24-0.36 (BEAKER) (test okum=527) EOSINOPHILS ABSOLUTE COUNT 0.18 K/ L 0.04-0.36 (BEAKER) (test vkyk=325) BASOPHILS ABSOLUTE COUNT 0.03 K/ L 0.01-0.08 (BEAKER) (test jjet=531) IMMATURE GRANULOCYTES-RELATIVE 0 % 0-1 PERCENT (BEAKER) (test bmis=9934) URINALYSIS W/ [id number] 14:49:00 Test Item Value Reference Range Comments COLOR (BEAKER) (test qxrk=701) Light Yellow CLARITY (BEAKER) (test safl=997) Clear SPECIFIC GRAVITY UA (BEAKER) (test wklj=904) 1.004 1.001-1.035 PH UA (BEAKER) (test ktzt=742) 7.0 5.0-8.0 PROTEIN UA (BEAKER) (test pmxq=003) Negative Negative GLUCOSE UA (BEAKER) (test zdtu=859) Negative Negative KETONES UA (BEAKER) (test wyrc=589) Negative Negative BILIRUBIN UA (BEAKER) (test ssma=275) Negative Negative BLOOD UA (BEAKER) (test luia=365) Negative Negative NITRITE UA (BEAKER) (test xuem=048) Negative Negative LEUKOCYTE ESTERASE UA (BEAKER) (test kkqy=593) Small Negative UROBILINOGEN UA (BEAKER) (test zfuf=046) 0.2 mg/dL 0.2-1.0 RBC UA (BEAKER) (test fnmf=890) 0 /HPF WBC UA (BEAKER) (test aegk=848) 3 /HPF BACTERIA (BEAKER) (test cjmv=740) Rare SQUAMOUS EPITHELIAL (BEAKER) (test nmjs=722) 1 /HPF SOURCE(BEAKER) (test kebw=2410) Urine, Voided SCREEN, [id number] 14:46:00 Test Item Value Reference Range Comments TEST URINE (BEAKER) (test jrwc=579) Negative TISSUE [id number] 17:18:00Surgical Pathology Report Case: [id number] Authorizing Provider: Sebastien Ba Collected: 05/19/2018 1718 Ordering Location: [address] Received: 05/20/2018 0928 Service Pathologist: Rose Marie Agee MD Specimen: Bile, DISTAL BILE DUCT BX BILE DUCT, DISTAL, BIOPSIES- BENIGN COLUMNAR MUCOSA- NEGATIVE FOR DYSPLASIA OR CARCINOMA Signing Pathologist Direct Phone Line: [phone] signed by Rose Marie Agee MD on 05/24/2018 at 5:18 [id number] Distal bile duct biopsyReceived in formalin labeled "bile", description "distal bile duct biopsy " is a single fragment measuring 0.2 cm in greatest dimension. The specimen is entirely submitted in A1. DB/ew Microscopic examination is performed and the findings are incorporated in the diagnostic line.CBC W/PLT COUNT & AUTO [id number] 14:24:00 Test Item Value Reference Range Comments WHITE BLOOD CELL COUNT 6.2 K/ L 3.5-10.5 (BEAKER) (test twfq=395) RED BLOOD CELL COUNT (BEAKER) 3.83 M/ L 3.93-5.22 (test bmxd=528) HEMOGLOBIN (BEAKER) (test 7.2 GM/DL 11.2-15.7 ydvb=032) HEMATOCRIT (BEAKER) (test 25.2 % 34.1-44.9 buak=936) MEAN CORPUSCULAR VOLUME 65.8 fL 79.4-94.8 (BEAKER) (test gqjo=296) MEAN CORPUSCULAR HEMOGLOBIN 18.8 pg 25.6-32.2 (BEAKER) (test xbyc=889) MEAN CORPUSCULAR HEMOGLOBIN 28.6 GM/DL 32.2-35.5 CONC (BEAKER) (test uset=378) RED CELL DISTRIBUTION WIDTH 25.3 % 11.7-14.4 (BEAKER) (test fwyd=352) PLATELET COUNT (BEAKER) (test 260 K/CU MM 150-450 wany=934) MEAN PLATELET VOLUME (BEAKER) fL 9.4-12.3 Unable to report due to (test vjhc=730) abnormal Platelet population distribution. NUCLEATED RED BLOOD CELLS 0 /100 WBC 0-0 (BEAKER) (test tfib=744) NEUTROPHILS RELATIVE PERCENT 42 % (BEAKER) (test vtwb=542) LYMPHOCYTES RELATIVE PERCENT 45 % (BEAKER) (test eeqt=332) MONOCYTES RELATIVE PERCENT 9 % (BEAKER) (test tupw=208) EOSINOPHILS RELATIVE PERCENT 3 % (BEAKER) (test jfwo=995) BASOPHILS RELATIVE PERCENT 1 % (BEAKER) (test wklp=075) NEUTROPHILS ABSOLUTE COUNT 2.58 K/ L 1.56-6.13 (BEAKER) (test rflh=244) LYMPHOCYTES ABSOLUTE COUNT 2.76 K/ L 1.18-3.74 (BEAKER) (test qxoq=707) MONOCYTES ABSOLUTE COUNT 0.57 K/ L 0.24-0.36 (BEAKER) (test jiwr=981) EOSINOPHILS ABSOLUTE COUNT 0.17 K/ L 0.04-0.36 (BEAKER) (test xfgz=309) BASOPHILS ABSOLUTE COUNT 0.05 K/ L 0.01-0.08 (BEAKER) (test sdaj=728) IMMATURE GRANULOCYTES-RELATIVE 1 % 0-1 PERCENT (BEAKER) (test falt=6278) COMPREHENSIVE METABOLIC [id number] 13:21:00 Test Item Value Reference Range Comments TOTAL PROTEIN (BEAKER) 5.0 gm/dL 6.0-8.3 (test epqe=556) ALBUMIN (BEAKER) (test 2.9 g/dL 3.5-5.0 bwih=7142) ALKALINE PHOSPHATASE 278 U/L 40-150 (BEAKER) (test rbjt=930) BILIRUBIN TOTAL (BEAKER) 0.2 mg/dL 0.2-1.2 (test tnmw=606) SODIUM (BEAKER) (test 139 meq/L 136-145 dcei=046) POTASSIUM (BEAKER) (test 3.9 meq/L 3.5-5.1 omaa=314) CHLORIDE (BEAKER) (test 109 meq/L 98-107 irao=327) CO2 (BEAKER) (test 21 meq/L 22-29 qgpf=718) BLOOD UREA NITROGEN 4 mg/dL 7-21 (BEAKER) (test mxjx=314) CREATININE (BEAKER) (test 0.59 mg/dL 0.57-1.25 osek=838) GLUCOSE RANDOM (BEAKER) 87 mg/dL 70-105 (test nmln=004) CALCIUM (BEAKER) (test 8.0 mg/dL 8.4-10.2 ksck=671) AST (SGOT) (BEAKER) (test 17 U/L 5-34 soth=561) ALT (SGPT) (BEAKER) (test 23 U/L 6-55 hgjf=219) EGFR (BEAKER) (test 112 mL/min/1.73 sq ESTIMATED GFR IS NOT uzxh=6734) m ACCURATE CREATININE CLEARANCE IN PREDICTING GLOMERULAR FILTRATION RATE. ESTIMATED GFR IS NOT APPLICABLE FOR DIALYSIS PATIENTS. [id number] 16:59:00 Test Item Value Reference Range Comments LIPASE (BEAKER) (test muiy=608) 15 U/L 8-78 COMPREHENSIVE METABOLIC [id number] 16:59:00 Test Item Value Reference Range Comments TOTAL PROTEIN (BEAKER) 5.2 gm/dL 6.0-8.3 (test sdos=598) ALBUMIN (BEAKER) (test 3.1 g/dL 3.5-5.0 rhwn=4922) ALKALINE PHOSPHATASE 392 U/L 40-150 (BEAKER) (test yfvy=956) BILIRUBIN TOTAL (BEAKER) 0.3 mg/dL 0.2-1.2 (test nlmx=204) SODIUM (BEAKER) (test 140 meq/L 136-145 rofl=478) POTASSIUM (BEAKER) (test 3.8 meq/L 3.5-5.1 zceb=761) CHLORIDE (BEAKER) (test 106 meq/L 98-107 rdsf=937) CO2 (BEAKER) (test 31 meq/L 22-29 mmlr=353) BLOOD UREA NITROGEN 3 mg/dL 7-21 (BEAKER) (test mazb=832) CREATININE (BEAKER) (test 0.58 mg/dL 0.57-1.25 loax=225) GLUCOSE RANDOM (BEAKER) 108 mg/dL 70-105 (test yuwi=765) CALCIUM (BEAKER) (test 8.3 mg/dL 8.4-10.2 oqev=688) AST (SGOT) (BEAKER) (test 28 U/L 5-34 bmfd=013) ALT (SGPT) (BEAKER) (test 54 U/L 6-55 oyhv=663) EGFR (BEAKER) (test 114 mL/min/1.73 sq ESTIMATED GFR IS NOT sxmq=7086) m ACCURATE CREATININE CLEARANCE IN PREDICTING GLOMERULAR FILTRATION RATE. ESTIMATED GFR IS NOT APPLICABLE FOR DIALYSIS PATIENTS. CBC W/PLT COUNT & AUTO [id number] 16:52:00 Test Item Value Reference Range Comments WHITE BLOOD CELL COUNT 6.4 K/ L 3.5-10.5 (BEAKER) (test gdnr=236) RED BLOOD CELL COUNT (BEAKER) 3.83 M/ L 3.93-5.22 (test emrb=569) HEMOGLOBIN (BEAKER) (test 7.3 GM/DL 11.2-15.7 rkya=363) HEMATOCRIT (BEAKER) (test 25.0 % 34.1-44.9 eavg=780) MEAN CORPUSCULAR VOLUME 65.3 fL 79.4-94.8 (BEAKER) (test lrun=270) MEAN CORPUSCULAR HEMOGLOBIN 19.1 pg 25.6-32.2 (BEAKER) (test gffg=897) MEAN CORPUSCULAR HEMOGLOBIN 29.2 GM/DL 32.2-35.5 CONC (BEAKER) (test bjkg=550) RED CELL DISTRIBUTION WIDTH 25.5 % 11.7-14.4 (BEAKER) (test yiag=612) PLATELET COUNT (BEAKER) (test 237 K/CU MM 150-450 zwbn=194) MEAN PLATELET VOLUME (BEAKER) fL 9.4-12.3 Unable to report due to (test uvip=993) abnormal Platelet population distribution. NUCLEATED RED BLOOD CELLS 0 /100 WBC 0-0 (BEAKER) (test bjch=396) NEUTROPHILS RELATIVE PERCENT 53 % (BEAKER) (test jffu=680) LYMPHOCYTES RELATIVE PERCENT 36 % (BEAKER) (test tnln=932) MONOCYTES RELATIVE PERCENT 8 % (BEAKER) (test fwpr=264) EOSINOPHILS RELATIVE PERCENT 2 % (BEAKER) (test voxl=330) BASOPHILS RELATIVE PERCENT 0 % (BEAKER) (test ncjc=877) NEUTROPHILS ABSOLUTE COUNT 3.41 K/ L 1.56-6.13 (BEAKER) (test ycru=855) LYMPHOCYTES ABSOLUTE COUNT 2.32 K/ L 1.18-3.74 (BEAKER) (test vqws=026) MONOCYTES ABSOLUTE COUNT 0.53 K/ L 0.24-0.36 (BEAKER) (test quij=604) EOSINOPHILS ABSOLUTE COUNT 0.14 K/ L 0.04-0.36 (BEAKER) (test vwcn=453) BASOPHILS ABSOLUTE COUNT 0.02 K/ L 0.01-0.08 (BEAKER) (test nbly=668) IMMATURE GRANULOCYTES-RELATIVE 0 % 0-1 PERCENT (BEAKER) (test yhey=7619) FL, [id number] 18:28:00Intra Op ImagingReason for exam:->bile duct stone obstructionFINAL REPORT ERCP 6 views 05/19/2018 6:27 PM CLINICAL HISTORY: Instrument localization COMPARISON: None available IMPRESSION : Please correlate imaging report findings with the procedure note prepared by Dr. Ba, as an intra-procedure imaging consultation was not requested. Reported fluoroscopy time: 133.9 seconds. Signed: Barron Miner Verified Date/Time: 05/19/2018 18:28:10 Reading Location: [facility] Radiology Reading Room Electronically signed by: BARRON MINER M.D. on 06:28 PMPREGNANCY SCREEN, [id number] 09:50:00 Test Item Value Reference Range Comments TEST URINE (BEAKER) (test ugnw=809) Negative CBC W/PLT COUNT & AUTO [id number] 06:38:00 Test Item Value Reference Range Comments WHITE BLOOD CELL COUNT 4.9 K/ L 3.5-10.5 (BEAKER) (test yevn=572) RED BLOOD CELL COUNT (BEAKER) 4.00 M/ L 3.93-5.22 (test pqdg=050) HEMOGLOBIN (BEAKER) (test 7.4 GM/DL 11.2-15.7 mkmf=528) HEMATOCRIT (BEAKER) (test 26.1 % 34.1-44.9 afaj=266) MEAN CORPUSCULAR VOLUME 65.3 fL 79.4-94.8 (BEAKER) (test zugt=543) MEAN CORPUSCULAR HEMOGLOBIN 18.5 pg 25.6-32.2 (BEAKER) (test rypk=163) MEAN CORPUSCULAR HEMOGLOBIN 28.4 GM/DL 32.2-35.5 CONC (BEAKER) (test wfji=669) RED CELL DISTRIBUTION WIDTH 25.9 % 11.7-14.4 (BEAKER) (test noyp=511) PLATELET COUNT (BEAKER) (test 210 K/CU MM 150-450 nuid=309) MEAN PLATELET VOLUME (BEAKER) fL 9.4-12.3 Unable to report due to (test bjsr=003) abnormal Platelet population distribution. NUCLEATED RED BLOOD CELLS 0 /100 WBC 0-0 (BEAKER) (test rsql=019) NEUTROPHILS RELATIVE PERCENT 44 % (BEAKER) (test delf=163) LYMPHOCYTES RELATIVE PERCENT 42 % (BEAKER) (test zuay=890) MONOCYTES RELATIVE PERCENT 8 % (BEAKER) (test uqwg=331) EOSINOPHILS RELATIVE PERCENT 5 % (BEAKER) (test cmwv=350) BASOPHILS RELATIVE PERCENT 1 % (BEAKER) (test uasa=901) NEUTROPHILS ABSOLUTE COUNT 2.19 K/ L 1.56-6.13 (BEAKER) (test qbmc=513) LYMPHOCYTES ABSOLUTE COUNT 2.07 K/ L 1.18-3.74 (BEAKER) (test ielr=139) MONOCYTES ABSOLUTE COUNT 0.40 K/ L 0.24-0.36 (BEAKER) (test emte=114) EOSINOPHILS ABSOLUTE COUNT 0.23 K/ L 0.04-0.36 (BEAKER) (test vqnz=041) BASOPHILS ABSOLUTE COUNT 0.03 K/ L 0.01-0.08 (BEAKER) (test srwi=822) IMMATURE GRANULOCYTES-RELATIVE 0 % 0-1 PERCENT (BEAKER) (test wmrw=9739) HEPATIC FUNCTION [id number] 06:36:00 Test Item Value Reference Range Comments TOTAL PROTEIN (BEAKER) (test nyll=185) 4.9 gm/dL 6.0-8.3 ALBUMIN (BEAKER) (test kftf=8294) 3.0 g/dL 3.5-5.0 BILIRUBIN TOTAL (BEAKER) (test xtom=183) 0.2 mg/dL 0.2-1.2 BILIRUBIN DIRECT (BEAKER) (test udmv=180) 0.1 mg/dL 0.1-0.5 ALKALINE PHOSPHATASE (BEAKER) (test gmqq=179) 437 U/L 40-150 AST (SGOT) (BEAKER) (test whxe=585) 57 U/L 5-34 ALT (SGPT) (BEAKER) (test bvno=022) 89 U/L 6-55 BASIC METABOLIC [id number] 06:36:00 Test Item Value Reference Range Comments SODIUM (BEAKER) (test 138 meq/L 136-145 ralp=380) POTASSIUM (BEAKER) (test 3.8 meq/L 3.5-5.1 gpfl=456) CHLORIDE (BEAKER) (test 105 meq/L 98-107 dtiy=374) CO2 (BEAKER) (test 27 meq/L 22-29 akam=373) BLOOD UREA NITROGEN 5 mg/dL 7-21 (BEAKER) (test gwdz=500) CREATININE (BEAKER) (test 0.58 mg/dL 0.57-1.25 twdo=100) GLUCOSE RANDOM (BEAKER) 90 mg/dL 70-105 (test xkav=445) CALCIUM (BEAKER) (test 8.3 mg/dL 8.4-10.2 kqpp=133) EGFR (BEAKER) (test 114 mL/min/1.73 sq m ESTIMATED GFR IS NOT exsl=2548) ACCURATE CREATININE CLEARANCE IN PREDICTING GLOMERULAR FILTRATION RATE. ESTIMATED GFR IS NOT APPLICABLE FOR DIALYSIS PATIENTS. PROTHROMBIN [id number] 06:17:00 Test Item Value Reference Range Comments PROTIME (BEAKER) (test ifwc=073) 13.2 seconds 11.7-14.7 INR (BEAKER) (test xbex=863) 1.0 <=5.9 RECOMMENDED COUMADIN/WARFARIN INR THERAPY RANGESSTANDARD DOSE: 2.0 - 3.0 Includes: PROPHYLAXIS forvenous thrombosis, systemic embolization; TREATMENT for venous thrombosis and/or pulmonary embolus.HIGH RISK: Target INR is 2.5-3.5 for patients with mechanical heart valves.HEPATIC FUNCTION [id number] 05:18 :00 Test Item Value Reference Range Comments TOTAL PROTEIN (BEAKER) (test irbs=111) 5.2 gm/dL 6.0-8.3 ALBUMIN (BEAKER) (test wfcw=5949) 3.1 g/dL 3.5-5.0 BILIRUBIN TOTAL (BEAKER) (test drdh=259) 0.3 mg/dL 0.2-1.2 BILIRUBIN DIRECT (BEAKER) (test vcyk=308) 0.2 mg/dL 0.1-0.5 ALKALINE PHOSPHATASE (BEAKER) (test zktv=310) 537 U/L 40-150 AST (SGOT) (BEAKER) (test eiqt=577) 126 U/L 5-34 ALT (SGPT) (BEAKER) (test kzoq=386) 136 U/L 6-55 BASIC METABOLIC [id number] 05:18:00 Test Item Value Reference Range Comments SODIUM (BEAKER) (test 139 meq/L 136-145 iehn=574) POTASSIUM (BEAKER) (test 4.0 meq/L 3.5-5.1 dtjb=747) CHLORIDE (BEAKER) (test 106 meq/L 98-107 gvzw=684) CO2 (BEAKER) (test 27 meq/L 22-29 mdre=074) BLOOD UREA NITROGEN 6 mg/dL 7-21 (BEAKER) (test kdhs=483) CREATININE (BEAKER) (test 0.53 mg/dL 0.57-1.25 xdzk=281) GLUCOSE RANDOM (BEAKER) 87 mg/dL 70-105 (test qalq=245) CALCIUM (BEAKER) (test 8.2 mg/dL 8.4-10.2 jctm=804) EGFR (BEAKER) (test 127 mL/min/1.73 sq m ESTIMATED GFR IS NOT igmn=6039) ACCURATE CREATININE CLEARANCE IN PREDICTING GLOMERULAR FILTRATION RATE. ESTIMATED GFR IS NOT APPLICABLE FOR DIALYSIS PATIENTS. PROTHROMBIN [id number] 04:49:00 Test Item Value Reference Range Comments PROTIME (BEAKER) (test kffi=383) 12.7 seconds 11.7-14.7 INR (BEAKER) (test hldm=829) 1.0 <=5.9 RECOMMENDED COUMADIN/WARFARIN INR THERAPY RANGESSTANDARD DOSE: 2.0 - 3.0 Includes: PROPHYLAXIS forvenous thrombosis, systemic embolization; TREATMENT for venous thrombosis and/or pulmonary embolus.HIGH RISK: Target INR is 2.5-3.5 for patients with mechanical heart valves.CBC W/PLT COUNT & AUTO [id number] 04:47:00 Test Item Value Reference Range Comments WHITE BLOOD CELL COUNT 4.4 K/ L 3.5-10.5 (BEAKER) (test sugc=126) RED BLOOD CELL COUNT (BEAKER) 4.02 M/ L 3.93-5.22 (test qohr=658) HEMOGLOBIN (BEAKER) (test 7.6 GM/DL 11.2-15.7 nmot=249) HEMATOCRIT (BEAKER) (test 26.3 % 34.1-44.9 rrrr=999) MEAN CORPUSCULAR VOLUME 65.4 fL 79.4-94.8 (BEAKER) (test qyjz=716) MEAN CORPUSCULAR HEMOGLOBIN 18.9 pg 25.6-32.2 (BEAKER) (test bffn=675) MEAN CORPUSCULAR HEMOGLOBIN 28.9 GM/DL 32.2-35.5 CONC (BEAKER) (test okpe=531) RED CELL DISTRIBUTION WIDTH 25.9 % 11.7-14.4 (BEAKER) (test mipa=543) PLATELET COUNT (BEAKER) (test 218 K/CU MM 150-450 yytg=696) MEAN PLATELET VOLUME (BEAKER) fL 9.4-12.3 Unable to report due to (test hxwv=054) abnormal Platelet population distribution. NUCLEATED RED BLOOD CELLS 0 /100 WBC 0-0 (BEAKER) (test rbpy=824) NEUTROPHILS RELATIVE PERCENT 49 % (BEAKER) (test eqna=249) LYMPHOCYTES RELATIVE PERCENT 38 % (BEAKER) (test soic=158) MONOCYTES RELATIVE PERCENT 8 % (BEAKER) (test nuva=936) EOSINOPHILS RELATIVE PERCENT 4 % (BEAKER) (test zfnq=864) BASOPHILS RELATIVE PERCENT 1 % (BEAKER) (test dgdg=784) NEUTROPHILS ABSOLUTE COUNT 2.18 K/ L 1.56-6.13 (BEAKER) (test pixa=023) LYMPHOCYTES ABSOLUTE COUNT 1.67 K/ L 1.18-3.74 (BEAKER) (test wexj=752) MONOCYTES ABSOLUTE COUNT 0.36 K/ L 0.24-0.36 (BEAKER) (test pnos=730) EOSINOPHILS ABSOLUTE COUNT 0.19 K/ L 0.04-0.36 (BEAKER) (test qxxs=876) BASOPHILS ABSOLUTE COUNT 0.03 K/ L 0.01-0.08 (BEAKER) (test texw=403) IMMATURE GRANULOCYTES-RELATIVE 0 % 0-1 PERCENT (BEAKER) (test oryt=0291) MR, ABDOMEN, [id number] 16:29:00Please do mrcpFINAL REPORT INDICATION:42-year-old female with [...] MDReport Verified Date/Time: 05/17/2018 16:29:27 Reading Location: [facility] B1 [id number] Ortho Consult Reading Room Electronically signed by: IRVING SENA M.D. on 2017 04:29 [id number] 10:08:00 Test Item Value Reference Range Comments FERRITIN (BEAKER) (test hwtl=419) 11 ng/mL 5-275 IRON, TIBC, % SAT. (WITHOUT FERRITIN)2018-05-17 09:48:00 Test Item Value Reference Range Comments IRON (BEAKER) (test rvtp=369) 23 ug/dL 40-160 TOTAL IRON BINDING CAPACITY (BEAKER) (test 436 ug/dL 250-450 lfml=525) IRON % SATURATION (2) (BEAKER) (test mjlz=7962) 5 % 20-55 RAPID DRUG SCREEN, [id number] 09:04:00 Test Item Value Reference Range Comments BARBITURATE URINE (BEAKER) (test uqpm=819) Negative Negative BENZODIAZEPINE SCREEN URINE (BEAKER) (test Negative Negative svku=620) COCAINE (METAB.) SCREEN (BEAKER) (test pwxn=3808) Negative Negative METHADONE SCREEN (BEAKER) (test uvvu=2050) Negative Negative OPIATE SCREEN URINE (BEAKER) (test vnhz=269) Positive Negative CANNABINOID SCREEN URINE (BEAKER) (test evga=608) Negative Negative AMPH/METHAMPH SCREEN (BEAKER) (test ytdr=1555) Negative Negative PHENCYCLIDINE SCREEN URINE (BEAKER) (test pavr=126) Negative Negative OXYCODONE SCREEN URINE (BEAKER) (test yiwe=3077) Negative Negative DRUG CUTOFF CONC.Cocaine 300 ng/mL Cannabinoid 50 ng/mL Benzodiazepine 200 ng/mLBarbiturate 200 ng/ mLPhencyclidine 25 ng/mLOpiate 300 ng/mLMethadone 300 ng/mLAmphetamine/ 1000 ng/mL MethamphetamineOxycodone 300 ng/mLThis assay provides an unconfirmed qualitative test result for the clinical management of patients in emergency situations. Chain of custody not maintained. Some deyb-otn-eiwegvk medications, as well as adulterants, may cause inaccurate results. Clinical correlation should be applied. A more comprehensive drug screen or confirmation of a detected drug may be performed upon request.CBC W/PLT COUNT & AUTO [id number] 06:17:00 Test Item Value Reference Range Comments WHITE BLOOD CELL COUNT 4.8 K/ L 3.5-10.5 (BEAKER) (test vqme=016) RED BLOOD CELL COUNT (BEAKER) 4.03 M/ L 3.93-5.22 (test vfev=744) HEMOGLOBIN (BEAKER) (test 7.4 GM/DL 11.2-15.7 qrxd=824) HEMATOCRIT (BEAKER) (test 26.1 % 34.1-44.9 xvuq=118) MEAN CORPUSCULAR VOLUME 64.8 fL 79.4-94.8 (BEAKER) (test oomn=899) MEAN CORPUSCULAR HEMOGLOBIN 18.4 pg 25.6-32.2 (BEAKER) (test jaua=498) MEAN CORPUSCULAR HEMOGLOBIN 28.4 GM/DL 32.2-35.5 CONC (BEAKER) (test kcfc=429) RED CELL DISTRIBUTION WIDTH 26.2 % 11.7-14.4 (BEAKER) (test fcvh=238) PLATELET COUNT (BEAKER) (test 201 K/CU MM 150-450 dxuv=110) MEAN PLATELET VOLUME (BEAKER) fL 9.4-12.3 Unable to report due to (test rgdb=487) abnormal Platelet population distribution. NUCLEATED RED BLOOD CELLS 0 /100 WBC 0-0 (BEAKER) (test slec=760) NEUTROPHILS RELATIVE PERCENT 46 % (BEAKER) (test wclp=613) LYMPHOCYTES RELATIVE PERCENT 40 % (BEAKER) (test xukl=835) MONOCYTES RELATIVE PERCENT 8 % (BEAKER) (test dbkr=386) EOSINOPHILS RELATIVE PERCENT 4 % (BEAKER) (test bpvh=494) BASOPHILS RELATIVE PERCENT 1 % (BEAKER) (test qirn=738) NEUTROPHILS ABSOLUTE COUNT 2.20 K/ L 1.56-6.13 (BEAKER) (test jple=057) LYMPHOCYTES ABSOLUTE COUNT 1.91 K/ L 1.18-3.74 (BEAKER) (test tpry=975) MONOCYTES ABSOLUTE COUNT 0.40 K/ L 0.24-0.36 (BEAKER) (test zqvg=039) EOSINOPHILS ABSOLUTE COUNT 0.20 K/ L 0.04-0.36 (BEAKER) (test nbaz=238) BASOPHILS ABSOLUTE COUNT 0.03 K/ L 0.01-0.08 (BEAKER) (test cjaj=080) IMMATURE GRANULOCYTES-RELATIVE 0 % 0-1 PERCENT (BEAKER) (test smdk=0782) HEPATIC FUNCTION [id number] 06:10:00 Test Item Value Reference Range Comments TOTAL PROTEIN (BEAKER) (test gjkt=981) 5.1 gm/dL 6.0-8.3 ALBUMIN (BEAKER) (test yfzf=3262) 3.1 g/dL 3.5-5.0 BILIRUBIN TOTAL (BEAKER) (test lrwx=891) 0.4 mg/dL 0.2-1.2 BILIRUBIN DIRECT (BEAKER) (test cmio=531) 0.2 mg/dL 0.1-0.5 ALKALINE PHOSPHATASE (BEAKER) (test lzpy=572) 545 U/L 40-150 AST (SGOT) (BEAKER) (test uwhx=612) 192 U/L 5-34 ALT (SGPT) (BEAKER) (test rxle=100) 150 U/L 6-55 BASIC METABOLIC [id number] 06:10:00 Test Item Value Reference Range Comments SODIUM (BEAKER) (test 138 meq/L 136-145 wzje=884) POTASSIUM (BEAKER) (test 3.7 meq/L 3.5-5.1 ncqj=523) CHLORIDE (BEAKER) (test 105 meq/L 98-107 eolx=864) CO2 (BEAKER) (test 27 meq/L 22-29 bbvi=644) BLOOD UREA NITROGEN 9 mg/dL 7-21 (BEAKER) (test ksvk=883) CREATININE (BEAKER) (test 0.53 mg/dL 0.57-1.25 sccz=571) GLUCOSE RANDOM (BEAKER) 78 mg/dL 70-105 (test rybf=341) CALCIUM (BEAKER) (test 8.5 mg/dL 8.4-10.2 rdpa=437) EGFR (BEAKER) (test 127 mL/min/1.73 sq m ESTIMATED GFR IS NOT lgkk=9815) ACCURATE CREATININE CLEARANCE IN PREDICTING GLOMERULAR FILTRATION RATE. ESTIMATED GFR IS NOT APPLICABLE FOR DIALYSIS PATIENTS. PROTHROMBIN [id number] 05:55:00 Test Item Value Reference Range Comments PROTIME (BEAKER) (test fcwv=975) 13.3 seconds 11.7-14.7 INR (BEAKER) (test algr=424) 1.0 <=5.9 RECOMMENDED COUMADIN/WARFARIN INR THERAPY RANGESSTANDARD DOSE: 2.0 - 3.0 Includes: PROPHYLAXIS forvenous thrombosis, systemic embolization; TREATMENT for venous thrombosis and/or pulmonary embolus.HIGH RISK: Target INR is 2.5-3.5 for patients with mechanical heart valves.[id number] 18:19:00 Test Item Value Reference Range Comments MAGNESIUM (BEAKER) (test ddjm=576) 2.1 mg/dL 1.6-2.6 COMPREHENSIVE METABOLIC [id number] 18:19:00 Test Item Value Reference Range Comments TOTAL PROTEIN (BEAKER) 6.0 gm/dL 6.0-8.3 (test hcfy=050) ALBUMIN (BEAKER) (test 3.7 g/dL 3.5-5.0 mwfv=6158) ALKALINE PHOSPHATASE 559 U/L 40-150 (BEAKER) (test evtj=223) BILIRUBIN TOTAL (BEAKER) 0.3 mg/dL 0.2-1.2 (test wcyw=659) SODIUM (BEAKER) (test 138 meq/L 136-145 yvxl=467) POTASSIUM (BEAKER) (test 4.3 meq/L 3.5-5.1 vghj=575) CHLORIDE (BEAKER) (test 104 meq/L 98-107 nvhy=974) CO2 (BEAKER) (test 24 meq/L 22-29 ygha=994) BLOOD UREA NITROGEN 14 mg/dL 7-21 (BEAKER) (test ntmb=155) CREATININE (BEAKER) (test 0.67 mg/dL 0.57-1.25 bgcp=953) GLUCOSE RANDOM (BEAKER) 101 mg/dL 70-105 (test qnbv=681) CALCIUM (BEAKER) (test 8.7 mg/dL 8.4-10.2 asqz=355) AST (SGOT) (BEAKER) (test 184 U/L 5-34 wclh=506) ALT (SGPT) (BEAKER) (test 171 U/L 6-55 itso=393) EGFR (BEAKER) (test 97 mL/min/1.73 sq m ESTIMATED GFR IS NOT dhse=3781) ACCURATE CREATININE CLEARANCE IN PREDICTING GLOMERULAR FILTRATION RATE. ESTIMATED GFR IS NOT APPLICABLE FOR DIALYSIS PATIENTS. [id number] 18:19:00 Test Item Value Reference Range Comments LIPASE (BEAKER) (test popv=241) 24 U/L 8-78 URINALYSIS [id number] 18:17:00 Test Item Value Reference Range Comments RBC UA (BEAKER) (test benb=623) 2 /HPF WBC UA (BEAKER) (test qryc=777) 4 /HPF MUCUS (BEAKER) (test zqwb=9051) Many SQUAMOUS EPITHELIAL (BEAKER) (test yrnl=507) 2 /HPF URINALYSIS WITH MICROSCOPIC IF [id number] 18:16:00 Test Item Value Reference Range Comments COLOR (BEAKER) (test tfnx=256) Yellow CLARITY (BEAKER) (test koru=490) Clear SPECIFIC GRAVITY UA (BEAKER) (test rncv=080) 1.027 1.001-1.035 PH UA (BEAKER) (test kkcl=273) 5.5 5.0-8.0 PROTEIN UA (BEAKER) (test lepp=431) 20 mg/dL Negative GLUCOSE UA (BEAKER) (test jnqu=364) Negative Negative KETONES UA (BEAKER) (test ovli=769) Negative Negative BILIRUBIN UA (BEAKER) (test fkxi=554) Negative Negative BLOOD UA (BEAKER) (test loca=659) Moderate Negative NITRITE UA (BEAKER) (test udub=808) Negative Negative LEUKOCYTE ESTERASE UA (BEAKER) (test fbaa=206) Small Negative UROBILINOGEN UA (BEAKER) (test wqfn=307) 3.0 mg/dL 0.2-1.0 SOURCE(BEAKER) (test uxzw=8499) CBC W/PLT COUNT & AUTO [id number] 18:01:00 Test Item Value Reference Range Comments WHITE BLOOD CELL COUNT 7.8 K/ L 3.5-10.5 (BEAKER) (test qemr=194) RED BLOOD CELL COUNT (BEAKER) 4.17 M/ L 3.93-5.22 (test uzct=024) HEMOGLOBIN (BEAKER) (test 8.0 GM/DL 11.2-15.7 voww=578) HEMATOCRIT (BEAKER) (test 26.6 % 34.1-44.9 gyoe=496) MEAN CORPUSCULAR VOLUME 63.8 fL 79.4-94.8 (BEAKER) (test mtzi=936) MEAN CORPUSCULAR HEMOGLOBIN 19.2 pg 25.6-32.2 (BEAKER) (test zldr=485) MEAN CORPUSCULAR HEMOGLOBIN 30.1 GM/DL 32.2-35.5 CONC (BEAKER) (test ggml=680) RED CELL DISTRIBUTION WIDTH 26.1 % 11.7-14.4 (BEAKER) (test ulso=387) PLATELET COUNT (BEAKER) (test 283 K/CU MM 150-450 ixgb=980) MEAN PLATELET VOLUME (BEAKER) fL 9.4-12.3 Unable to report due to (test qnsz=670) abnormal Platelet population distribution. NUCLEATED RED BLOOD CELLS 0 /100 WBC 0-0 (BEAKER) (test nvax=214) NEUTROPHILS RELATIVE PERCENT 61 % (BEAKER) (test jhxb=281) LYMPHOCYTES RELATIVE PERCENT 26 % (BEAKER) (test vlij=888) MONOCYTES RELATIVE PERCENT 8 % (BEAKER) (test ygsk=750) EOSINOPHILS RELATIVE PERCENT 5 % (BEAKER) (test laue=954) BASOPHILS RELATIVE PERCENT 0 % (BEAKER) (test khwm=035) NEUTROPHILS ABSOLUTE COUNT 4.72 K/ L 1.56-6.13 (BEAKER) (test aote=063) LYMPHOCYTES ABSOLUTE COUNT 2.01 K/ L 1.18-3.74 (BEAKER) (test eskd=267) MONOCYTES ABSOLUTE COUNT 0.63 K/ L 0.24-0.36 (BEAKER) (test pddi=036) EOSINOPHILS ABSOLUTE COUNT 0.35 K/ L 0.04-0.36 (BEAKER) (test crjc=913) BASOPHILS ABSOLUTE COUNT 0.03 K/ L 0.01-0.08 (BEAKER) (test vbgs=722) IMMATURE GRANULOCYTES-RELATIVE 0 % 0-1 PERCENT (BEAKER) (test qxdf=6561) ANKLE 3 [id number] 20:42:[address] [id number] IMAGING REPORTPatient Name: BABATUNDE CHAMBERS ADate of Service: [id number]: 42 Sex: F Order #: [id number] Room: QERDOB: 1975 X-Ray Number: [id number] Record Number: [id number] Hospital Number: [id number] Physician: COLIN ABRAHAM Physician : TEIXEIRA, ISAACRIGHT ankle 3 views 8:45 PMHISTORY: Twisted ankle, [...] authenticated by EREN BURDICK 2018-03-19 20:39:41US RENAL [id number] 04:43:[place] [id number] IMAGING REPORTPatient Name: BABATUNDE CHAMBERS of Service: [id number]: 41 Sex: F Order #: [id number] Room: ERSDOB : 1975 X-Ray Number: [id number] Record Number: [id number] Hospital Number: [id number] Physician: MARY CHUNGOrdering Physician : Duane CHUNGateral renal and bladder [...] BRANDI MORAES V 2017-02-27 04:41:36CT ABDOMEN/ PELVIS [id number] 23:27:00[place] [id number] IMAGING REPORTPatient Name: BABATUNDE CHAMBERS ADate of Service: [id number]: 41 Sex: F Order #: [id number] Room: ERSDOB : 1975 X-Ray Number: [id number] Record Number: [id number] Hospital Number: [id number] Physician: BLANK, LOC TANOrdering Physician: ARCELIA DARNELL abdomen and pelvis.History: [...] Signed By: Elmer Pedroza M.D., 2016 11:25 PMLestevan authenticated by SRI Dior 2017-02-09 23:25:01
[2019-12-19] MEDS ORDERED: NA CHLORIDE 0.9% 1,000 ML ONE (21:08)
[2019-12-19] MEDS ORDERED: METOCLOPRAMIDE 10 MG/2mL INJ ONE (21:08)
[2019-12-19] MEDS ORDERED: DIPHENHYDRAMINE 50 MG/ML VIAL ONE ×2 (21:09→22:47)
[2019-12-19 21:57] LABS: Potassium 4.4 mmol/L (3.5-5.1)
[2019-12-19] MEDS ORDERED: dexAMETHasone 10 MG/ML VIAL ONE (22:47)
[2019-12-19 23:38] LABS: Hematocrit 24.6 % (36.0-45.0); MPV 9.4 fL (7.6-11.3); RBC Red Blood Cell Count 4.15 M/uL (3.86-4.86)
--- NOTE | 2019-12-20 00:12 | ER ---
Nurse's Notes [facility] Name: Moira Saldaña Age: 44 yrs Sex: Female : 1975 Arrival Date: 12/19/2019 Time: 19:11 Bed 24 Private MD: Diagnosis: Headache;Dizziness and giddiness Presentation: 12/19 19:37 Presenting complaint: Patient states: PATIENT IS FROM [facility]. SHE WAS SEEN FOR rv THE SAME REASON JUST RECENTLY AND STILL COMPLAINING OF DIZZINESS AND HEADACHE, AND VOMITING. Transition of care: patient was not received from another setting of care. Onset of symptoms was December 19, 2019 at 08:00. Risk Assessment: Do you want to hurt yourself or someone else? Patient reports no desire to harm self or others. Initial Sepsis Screen: Does the patient meet any 2 criteria? No. Patient's initial sepsis screen is negative. Does the patient have a suspected source of infection? No. Patient's initial sepsis screen is negative. Care prior to arrival: None. 19:37 Method Of Arrival: Ambulatory rv 19:37 Acuity: DIANE 4 rv Triage Assessment: 19:41 General: Appears in no apparent distress. Behavior is calm, cooperative. Pain: rv Complains of pain in HEAD. GI: Reports nausea, vomiting. 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 - Coronavirus screen:: The patient has NOT traveled to [place], [place], or [place] in the past 14 days. Proceed with normal triage process as indicated. The patient has NOT had contact with known/suspected case of Coronavirus? Proceed with normal triage procedures. - Social history:: Smoking status: Patient reports the use of cigarette tobacco products, smokes one pack cigarettes per day. - Family history:: not pertinent. - Ebola Screening: : No symptoms or risks identified at this time. - Hospitalizations: : No recent hospitalization is reported. Screenin:30 Abuse screen: Denies threats or abuse. Denies injuries from another. Nutritional aj1 screening: No deficits noted. Tuberculosis screening: No symptoms or risk factors identified. 12/20 00:18 Fall Risk None identified. rv Assessment: 12/19 20:30 General: Appears in no apparent distress. comfortable, Behavior is calm, cooperative, aj1 appropriate for age. Pain: Complains of pain in forehead. Neuro: Level of Consciousness is awake, alert, obeys commands, Oriented to person, place, time, situation, Moves all extremities. Full function Speech is normal, Facial symmetry appears normal, Reports dizziness, headache. Cardiovascular: Patient's skin is warm and dry. Respiratory: Airway is patent Respiratory effort is even, unlabored, Respiratory pattern is regular, symmetrical. GI: Abdomen is non-distended, Abd is soft and non tender X 4 quads. Reports nausea, vomiting. : No signs and/or symptoms were reported regarding the genitourinary system. EENT: No signs and/or symptoms were reported regarding the EENT system. Derm: No signs and/or symptoms reported regarding the dermatologic system. Skin is pink, warm \T\ dry. normal. Musculoskeletal: No signs and/or symptoms reported regarding the musculoskeletal system. Circulation, motion, and sensation intact. 21:35 Reassessment: Patient appears in no apparent distress at this time. No changes from aj1 previously documented assessment. Patient and/or family updated on plan of care and expected duration. Pain level reassessed. Patient is alert, oriented x 3, equal unlabored respirations, skin warm/dry/pink. 22:52 Reassessment: Patient and/or family updated on plan of care and expected duration. Pain ch2 level reassessed. Patient is alert, oriented x 3, equal unlabored respirations, skin warm/dry/pink. introduced self as new primary nurse. General: Appears in no apparent distress. comfortable, Behavior is calm, cooperative. Pain: Complains of pain in forehead. 23:54 Reassessment: Patient and/or family updated on plan of care and expected duration. Pain ch2 level reassessed. Patient is alert, oriented x 3, equal unlabored respirations, skin warm/dry/pink. General: Appears in no apparent distress. comfortable, Behavior is calm, cooperative. Pain: Complains of pain in forehead Pain currently is 3 out of 10 on a pain scale. 12/20 00:10 Reassessment: [facility] notified [facility], staff member to [facility] come picker and packer patient. Vital Signs: 12/19 19:39 BP 109 / 65; Pulse 79; Resp 17; Temp 98.4; Pulse Ox 100% ; Weight 72.57 kg; Pain 6/10; rv 22:06 BP 100 / 53; Pulse 73; Resp 18; Pulse Ox 100% on R/A; aj1 23:12 BP 91 / 55; Pulse 70; Resp 16; Temp 98.6; Pulse Ox 100% on R/A; Pain 0/10; ch2 ED Course: 19:11 Patient arrived in ED. as 19:39 Triage completed. rv 19:41 Arm band placed on. rv 20:24 Marina Pedroza, RN is Primary Nurse. aj1 20:27 Sherwin Welch MD is Attending Physician. rn 20:30 Patient has correct armband on for positive identification. Bed in low position. Call aj1 light in reach. Side rails up X 1. 20:30 No provider procedures requiring assistance completed. aj1 21:15 Missed attempt(s): 22 gauge in right antecubital area. Bleeding controlled, band aid jp3 applied, catheter tip intact. 21:20 Initial lab(s) drawn, by ED staff, sent to lab. EKG done, by ED staff, reviewed by wilber Welch MD. 21:20 Missed attempt(s): 22 gauge in left forearm. Bleeding controlled, band aid applied, aj1 catheter tip intact. 21:25 Basic Metabolic Panel Sent. jp3 21:25 CBC with Diff Sent. jp3 21:25 Missed attempt(s): 24 gauge in left hand. Bleeding controlled, band aid applied, aj1 catheter tip intact. 23:44 Notified ED physician of a critical lab result(s). hemoglobin of 7.5. fc 23:55 Bed in low position. Call light in reach. Noise minimized. Lights dimmed. Warm blanket ch2 given. 12/20 00:19 Patient did not have IV access during this emergency room visit. rv Administered Medications: 12/19 21:47 Not Given (Physician Discretion): Reglan 10 mg IVP once; over 1 to 2 minutes ajCj 21:56 Not Given (Duplicate Order): Benadryl 25 mg IVP once rn 22:51 Drug: Decadron 10 mg Route: IM; Site: left gluteus; ch2 12/20 00:13 Follow up: Response: No adverse reaction; Marked relief of symptoms; Pain is decreased; ch2 Anxiety decreased 12/19 22:51 Drug: Benadryl 25 mg Route: IM; Site: right gluteus; ch2 12/20 00:12 Follow up: Response: Marked relief of symptoms; Nausea is decreased; RASS: Alert and ch2 Calm (0) 00:13 Not Given (no IV access): NS 0.9% 1000 ml IV at 1000 ml once ch2 Outcome: 00:11 Discharge ordered by . rn 00:18 Discharged to Rehab Facility rv 00:18 Condition: improved 00:18 Discharge instructions given to patient, Instructed on discharge instructions, follow up and referral plans. Demonstrated understanding of instructions, follow-up care. 00:19 Patient left the ED. rv Signatures: Marina Pedroza RN RN aj1 Renee Quiñones RN RN Zena Kenny Roman, MD MD rn Hanna, Candace, RN RN ch2 Donavan Espinoza RN RN Daniel Jenkins jp3
--- NOTE | 2019-12-20 00:13 | EDPHYS ---
Physician Documentation [facility] Name: Moira Saldaña Age: 44 yrs Sex: Female : 1975 Arrival Date: 12/19/2019 Time: 19:11 Bed 24 Private MD: ED Physician Sherwin Welch HPI: 12/19 21:01 This 44 yrs old Female presents to ER via Ambulatory with complaints of rn Dizziness, Nausea/Vomiting. 21:01 The patient presents with dizziness, feeling faint, lightheadedness. Onset: The rn symptoms/episode began/occurred 1 week(s) ago. Context:. Modifying factors: The symptoms are alleviated by nothing, the symptoms are aggravated by standing up, changing position. Severity of symptoms: At their worst the symptoms were mild in the emergency department the symptoms are unchanged. The patient has experienced similar episodes in the past. The patient has been recently seen by a physician:. Reports multiple visits to ER recently fo this problem, states lightheaded and dizzy, no syncope, has anemia, but checked yesterday and stool guaiac neg. 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 Has known thalassemia. No chest pain/sob/abd pain. NO focal neuro complaints. . 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 - Coronavirus screen:: The patient has NOT traveled to [place], [place], or [place] in the past 14 days. Proceed with normal triage process as indicated. The patient has NOT had contact with known/suspected case of Coronavirus? Proceed with normal triage procedures. - Social history:: Smoking status: Patient reports the use of cigarette tobacco products, smokes one pack cigarettes per day. - Family history:: not pertinent. - Ebola Screening: : No symptoms or risks identified at this time. - Hospitalizations: : No recent hospitalization is reported. ROS: 21:01 Constitutional: Negative for fever, chills, and weight loss, Eyes: Negative for injury, rn pain, redness, and discharge, Neck: Negative for injury, pain, and swelling, Cardiovascular: Negative for chest pain, palpitations, and edema, Respiratory: Negative for shortness of breath, cough, wheezing, and pleuritic chest pain, Abdomen/GI: Negative for abdominal pain, nausea, vomiting, diarrhea, and constipation, MS/Extremity: Negative for injury and deformity, Skin: Negative for injury, rash, and discoloration, Neuro: Negative for numbness, tingling, and seizure. Exam: 21:01 Constitutional: This is a well developed, well nourished patient who is awake, alert, rn and in no acute distress. Head/Face: Normocephalic, atraumatic. Eyes: Pupils equal round and reactive to light, extra-ocular motions intact. Lids and lashes normal. Conjunctiva and sclera are non-icteric and not injected. Cornea within normal limits. Periorbital areas with no swelling, redness, or edema. Neck: Trachea midline, no thyromegaly or masses palpated, and no cervical lymphadenopathy. Supple, full range of motion without nuchal rigidity, or vertebral point tenderness. No Meningismus. Cardiovascular: Regular rate and rhythm. No pulse deficits. Respiratory: No increased work of breathing, no retractions or nasal flaring. Abdomen/GI: soft, non-tender Skin: Warm, dry with normal turgor. Normal color with no rashes, no lesions, and no evidence of cellulitis. MS/ Extremity: Pulses equal, no cyanosis. Neurovascular intact. Full, normal range of motion. Equal circumference. Neuro: Awake and alert, GCS 15, oriented to person, place, time, and situation. Cranial nerves II-XII grossly intact. Motor strength 5/5 in all extremities. Sensory grossly intact. Cerebellar exam normal. Normal gait. Vital Signs: 19:39 BP 109 / 65; Pulse 79; Resp 17; Temp 98.4; Pulse Ox 100% ; Weight 72.57 kg; Pain 6/10; rv 22:06 BP 100 / 53; Pulse 73; Resp 18; Pulse Ox 100% on R/A; aj1 23:12 BP 91 / 55; Pulse 70; Resp 16; Temp 98.6; Pulse Ox 100% on R/A; Pain 0/10; ch2 MDM: 20:27 Patient medically screened. rn 12/20 00:10 Differential diagnosis: generalized weakness, hypovolemia, idiopathic dizziness, rn vertigo. Data reviewed: vital signs, nurses notes, lab test result(s), EKG, and as a result, I will discharge patient. Counseling: I had a detailed discussion with the patient and/or guardian regarding: the historical points, exam findings, and any diagnostic results supporting the discharge/admit diagnosis, the need for outpatient follow up, to return to the emergency department if symptoms worsen or persist or if there are any questions or concerns that arise at home. Special discussion: I discussed with the patient/guardian in detail that at this point there is no indication for admission to the hospital. It is understood, however, that if the symptoms persist or worsen the patient needs to return immediately for re-evaluation. Based on the history and exam findings, there is no indication for further emergent testing or inpatient evaluation. I discussed with the patient/guardian the need to see the primary care provider for further evaluation of the symptoms. ED course: No gross change in hemoglobin, previous ct head and abd neg, will dc home with pcp f/u. Ambulatory to bathroom and to waiting room without difficulty. . 12/19 20:34 Order name: CBC with Diff rn 12/19 20:34 Order name: Basic Metabolic Panel; Complete Time: 22:03 rn 12/19 23:47 Order name: Manual Differential EDMS 12/19 20:34 Order name: EKG; Complete Time: 20:34 rn 12/19 20:34 Order name: EKG - Nurse/Tech; Complete Time: 21:24 rn Administered Medications: 12/19 21:47 Not Given (Physician Discretion): Reglan 10 mg IVP once; over 1 to 2 minutes aj1 21:56 Not Given (Duplicate Order): Benadryl 25 mg IVP once rn 22:51 Drug: Decadron 10 mg Route: IM; Site: left gluteus; ch2 12/20 00:13 Follow up: Response: No adverse reaction; Marked relief of symptoms; Pain is decreased; ch2 Anxiety decreased 12/19 22:51 Drug: Benadryl 25 mg Route: IM; Site: right gluteus; ch2 12/20 00:12 Follow up: Response: Marked relief of symptoms; Nausea is decreased; RASS: Alert and ch2 Calm (0) 00:13 Not Given (no IV access): NS 0.9% 1000 ml IV at 1000 ml once ch2 Disposition: 12/20/19 00:11 Discharged to Home. Impression: Headache, Dizziness and giddiness. - Condition is Stable. - Discharge Instructions: Anemia, Nonspecific, Dizziness, General Headache Without Cause. - Medication Reconciliation Form, Thank You Letter, Antibiotic Education, Prescription Opioid Use form. - Follow up: Private Physician; When: As needed; Reason: Recheck today's complaints, Re-evaluation by your physician. - Problem is an ongoing problem. - Symptoms have improved. Signatures: Dispatcher [employer] EDMS Sherwin Welch MD MD rn Racheal, Rupali RN RN ch2 Donavan Espinoza RN RN rv Marina Pedroza RN aj1 Corrections: (The following items were deleted from the chart) 00:19 00:11 12/20/2019 00:11 Discharged to Home. Impression: Headache; Dizziness and rv giddiness. Condition is Stable. Forms are Medication Reconciliation Form, Thank You Letter, Antibiotic Education, Prescription Opioid Use. Follow up: Private Physician; When: As needed; Reason: Recheck today's complaints, Re-evaluation by your physician. Problem is an ongoing problem. Symptoms have improved. rn
[2019-12-20 00:49] LABS: Anisocytosis 1+; Blood Morphology Comment NOTED (NOT SEEN); Ovalocytes 3+; Platelet Estimate ADEQ; Target Cells 1+
[2019-12-20 01:01] VITALS: O2SAT 100
[2019-12-20 01:04] VITALS: BP 91/55; TEMP 98.6
--- NOTE | 2019-12-20 06:56 | EKG ---
Test Date: 2019-12-19 Test Time: 21:17:51 Mine Wirer: AMBER MEASUREMENT RESULTS: Intervals: Rate: 63 WA: 154 QRSD: 84 QT: 386 QTc: 395 [place]: P: 65 WA: 154 QRS: 69 T: 50 INTERPRETIVE STATEMENTS: Normal sinus rhythm Normal ECG Compared to ECG 12/17/2019 14:01:23 No significant changes Electronically Signed On 12-20-19 06:55:36 [employer]XICS PROGRAM OFFICER by Rony Tee
== END 2019-12-20 00:19 | disposition home or self-care (01) ==
LOC: ER 19:09
DX: R42 Dizziness and giddiness (principal); R51 Headache; Z88.0 Allergy status to penicillin; Z88.8 Allergy status to other drugs, medicaments and biological substances; Z91.012 Allergy to eggs; Z91.013 Allergy to seafood
CPT/HCPCS: 36415; 80048; 85025; 93005; 96372; 99283; J1100; J1200; J2765; J7030

== ENCOUNTER 2019-12-20 11:28 | Emergency (ER) | payer SELFPAY ==
--- OUTSIDE RECORDS SUMMARY | 2019-12-20 11:34 | XMS REPORT ---
:1975 [facility] Address [address] [place] [address] [address]. [address] [place] [address] Care Team Providers Name Role Phone MAREN [...] Facility Department ID 2017-02-23 2017-02-23 Emergency [facility] [id number] 16:08:00 16:08:00 Results Test Description Test Time Test Comments Text Results Atomic Results Result Comments RAD, CHEST, 2 2018-09-15 22:33:00 Reason for FINAL REPORT PATIENT ID: VIEWS exam:->COUGH [id number] TECHNIQUE: 2 views of the chest. COMPARISON: None FINDINGS: The cardiac silhouette is within normal limits. Mediastinum is unremarkable. Lungs are clear. Osseous structures appear unremarkable. Surgical clips in the upper abdomen. IMPRESSION: No acute cardiopulmonary disease. Signed: Kristopher Haynes MDReport Verified Date/Time: 09/15/2018 22:33:09 Reading Location: [facility] Mammo Reading Room E DRUG SCREEN [...] NEGATIVE NEGATIVE PCP (test code=BMTPCP) NEGATIVE NEGATIVE [id number] 21:52:00 Test Item Value Reference Range Comments [...] code=URMUCOUS) MUCH /LPF NONE HEPATITIS C ANTIBODY [id number] 10:45:00 Test Item Value Reference Range Comments [...] and confirmation results will follow. URINE DRUG [id number] 18:04:00 Test Item Value Reference Range Comments [...] NEGATIVE NEGATIVE PCP (test code=BMTPCP) NEGATIVE NEGATIVE [id number] 17:43:00 Test Item Value Reference Range Comments [...] only. Not intended for non medical purposes. [id number] 17:10:00 Test Item Value Reference Range Comments SODIUM (test code=NA) 141 MMOL/L 137-145 K+ (test code=KSERUM) 4.4 MMOL/L 3.5-5.1 PLEASE NOTE NEW REFERENCE RANGE(S) IN EFFECT EFFECTIVE 06/28/2010 - NEW ANALYZER ([employer] 56[facility]) CHLORIDE (test code=CL) 108 MMOL/L 98-107 CO2 (test code=CO2) 28 MMOL/L 22-30 BUN (test code=BUN) 16 MG/DL 7-17 CREA (test code=CREA) 0.5 MG/DL 0.7-1.2 GLUCOSE (test 92 MG/DL 70-99 Fasting glucose normal code=GLUCOSE) <100 MG/DL- [employer] [place] [employer] recommendation CALCIUM (test 8.5 MG/DL 8.4-10.2 code=CABLOOD) TOTPROT (test 5.8 G/DL 6.3-8.2 code=TOTPROT) ALBUMIN (test 3.3 G/DL 3.5-5.0 code=ALBSERUM) BILITOT (test <0.1 MG/DL 0.2-1.3 code=BILITOT) AST (test code=AST) 20 U/L 15-46 PHOSALK (test 74 U/L 38-126 code=PHOSALK) ALT (test code=ALT) 29 U/L 13-69 GFR (test code=GFR) 144 mL/min/1.73m2 A GFR of >90 mL/min/1.73m2 is considered normal. CREATINE [id number] 17:10:00 Test Item Value Reference Range Comments CK (test code=CK) 33 U/L 30-135 [id number] 16:37:00 Test Item Value Reference Range Comments [...] NEUT (test code=NEUT) 3.6 K/UL 1.2-7.2 POCT-GLUCOSE [id number] 07:47:00 Test Item Value Reference Range Comments POC-GLUCOSE METER (BEAKER) 87 mg/dL 70-110 TESTED AT [address] (test llyi=7733) [facility] [address] BASIC METABOLIC [id number] 05:15:00 Test Item Value Reference Range Comments SODIUM (BEAKER) (test 140 meq/L 136-145 dxzg=958) POTASSIUM (BEAKER) (test 4.2 meq/L 3.5-5.1 jeow=886) CHLORIDE (BEAKER) (test 108 meq/L 98-107 magm=670) CO2 (BEAKER) (test 23 meq/L 22-29 rbtr=161) BLOOD UREA NITROGEN 6 mg/dL 7-21 (BEAKER) (test lwmn=473) CREATININE (BEAKER) (test 0.61 mg/dL 0.57-1.25 pkhc=106) GLUCOSE RANDOM (BEAKER) 80 mg/dL 70-105 (test tnms=995) CALCIUM (BEAKER) (test 8.4 mg/dL 8.4-10.2 uibh=387) EGFR (BEAKER) (test 108 mL/min/1.73 sq m ESTIMATED GFR IS NOT ammw=7796) ACCURATE CREATININE CLEARANCE IN PREDICTING GLOMERULAR FILTRATION RATE. ESTIMATED GFR IS NOT APPLICABLE FOR DIALYSIS PATIENTS. HEMOGLOBIN AND [id number] 04:48:00 Test Item Value Reference Range Comments HEMOGLOBIN (BEAKER) (test bdhf=719) 8.2 GM/DL 11.2-15.7 HEMATOCRIT (BEAKER) (test iagt=592) 28.6 % 34.1-44.9 [id number] 22:06:00 Test Item Value Reference Range Comments PROTIME (BEAKER) (test gqcu=893) 17.2 seconds 11.7-14.7 INR (BEAKER) (test vcyt=482) 1.4 <=5.9 PARTIAL THROMBOPLASTIN TIME (BEAKER) (test 35.4 seconds 22.5-36.0 zkah=876) RECOMMENDED COUMADIN/WARFARIN INR THERAPY RANGESSTANDARD DOSE: 2.0 - 3.0 Includes: PROPHYLAXIS forvenous thrombosis, systemic embolization; TREATMENT for venous thrombosis and/or pulmonary embolus.HIGH RISK: Target INR is 2.5-3.5 for patients with mechanical heart valves.[id number] 18:03:00 Test Item Value Reference Range Comments MAGNESIUM (BEAKER) (test 2.2 mg/dL 1.6-2.6 Specimen slightly hemolyzed stuy=285) BASIC METABOLIC [id number] 18:03:00 Test Item Value Reference Range Comments SODIUM (BEAKER) (test 141 meq/L 136-145 gbck=482) POTASSIUM (BEAKER) (test 4.2 meq/L 3.5-5.1 Specimen slightly ohwl=138) hemolyzed CHLORIDE (BEAKER) (test 107 meq/L 98-107 uwzs=338) CO2 (BEAKER) (test 23 meq/L 22-29 dkqv=207) BLOOD UREA NITROGEN 4 mg/dL 7-21 (BEAKER) (test zcqe=666) CREATININE (BEAKER) (test 0.63 mg/dL 0.57-1.25 Specimen slightly mzja=762) hemolyzed GLUCOSE RANDOM (BEAKER) 68 mg/dL 70-105 (test fdku=663) CALCIUM (BEAKER) (test 8.9 mg/dL 8.4-10.2 quhx=001) EGFR (BEAKER) (test 104 mL/min/1.73 sq m ESTIMATED GFR IS NOT wvld=8775) ACCURATE CREATININE CLEARANCE IN PREDICTING GLOMERULAR FILTRATION RATE. ESTIMATED GFR IS NOT APPLICABLE FOR DIALYSIS PATIENTS. POCT-GLUCOSE [id number] 13:00:00 Test Item Value Reference Range Comments POC-GLUCOSE METER (BEAKER) 98 mg/dL 70-110 TESTED AT [address] (test hrub=6405) [facility] [address] POCT-GLUCOSE [id number] 07:30:00 Test Item Value Reference Range Comments POC-GLUCOSE METER (BEAKER) 93 mg/dL 70-110 TESTED AT [address] (test dnpr=3283) [facility] [address] CBC W/PLT COUNT & AUTO [id number] 06:43:00 Test Item Value Reference Range Comments WHITE BLOOD CELL COUNT 4.5 K/ L 3.5-10.5 (BEAKER) (test kcal=009) RED BLOOD CELL COUNT (BEAKER) 4.03 M/ L 3.93-5.22 (test idab=850) HEMOGLOBIN (BEAKER) (test 7.7 GM/DL 11.2-15.7 hihi=657) HEMATOCRIT (BEAKER) (test 27.4 % 34.1-44.9 djpq=739) MEAN CORPUSCULAR VOLUME 68.0 fL 79.4-94.8 (BEAKER) (test inri=265) MEAN CORPUSCULAR HEMOGLOBIN 19.1 pg 25.6-32.2 (BEAKER) (test jfat=499) MEAN CORPUSCULAR HEMOGLOBIN 28.1 GM/DL 32.2-35.5 CONC (BEAKER) (test rlht=938) RED CELL DISTRIBUTION WIDTH 25.7 % 11.7-14.4 (BEAKER) (test gdhq=883) PLATELET COUNT (BEAKER) (test 235 K/CU MM 150-450 crnx=815) MEAN PLATELET VOLUME (BEAKER) fL 9.4-12.3 Unable to report due to (test ylpb=724) abnormal Platelet population distribution. NUCLEATED RED BLOOD CELLS 0 /100 WBC 0-0 (BEAKER) (test qvpp=267) NEUTROPHILS RELATIVE PERCENT 57 % (BEAKER) (test alle=495) LYMPHOCYTES RELATIVE PERCENT 30 % (BEAKER) (test qkxm=249) MONOCYTES RELATIVE PERCENT 8 % (BEAKER) (test hujq=523) EOSINOPHILS RELATIVE PERCENT 5 % (BEAKER) (test gbns=301) BASOPHILS RELATIVE PERCENT 0 % (BEAKER) (test ezwc=970) NEUTROPHILS ABSOLUTE COUNT 2.58 K/ L 1.56-6.13 (BEAKER) (test abwq=957) LYMPHOCYTES ABSOLUTE COUNT 1.36 K/ L 1.18-3.74 (BEAKER) (test saas=806) MONOCYTES ABSOLUTE COUNT 0.36 K/ L 0.24-0.36 (BEAKER) (test lxod=240) EOSINOPHILS ABSOLUTE COUNT 0.21 K/ L 0.04-0.36 (BEAKER) (test iwgu=654) BASOPHILS ABSOLUTE COUNT 0.02 K/ L 0.01-0.08 (BEAKER) (test zwtk=412) IMMATURE GRANULOCYTES-RELATIVE 0 % 0-1 PERCENT (BEAKER) (test gvon=3800) POCT-GLUCOSE [id number] 22:04:00 Test Item Value Reference Range Comments POC-GLUCOSE METER (BEAKER) 87 mg/dL 70-110 TESTED AT [facility] [address] [facility] (test ctlc=8537) [facility] [address] [id number] 15:12:00 Test Item Value Reference Range Comments LIPASE (BEAKER) (test isfi=888) 7 U/L 8-78 BASIC METABOLIC [id number] 15:12:00 Test Item Value Reference Range Comments SODIUM (BEAKER) (test 142 meq/L 136-145 fhvh=066) POTASSIUM (BEAKER) (test 3.7 meq/L 3.5-5.1 hzxo=428) CHLORIDE (BEAKER) (test 107 meq/L 98-107 wcoi=815) CO2 (BEAKER) (test 27 meq/L 22-29 mfjs=184) BLOOD UREA NITROGEN 5 mg/dL 7-21 (BEAKER) (test waeo=806) CREATININE (BEAKER) (test 0.57 mg/dL 0.57-1.25 iwxw=553) GLUCOSE RANDOM (BEAKER) 82 mg/dL 70-105 (test xqfb=047) CALCIUM (BEAKER) (test 8.6 mg/dL 8.4-10.2 uyhf=265) EGFR (BEAKER) (test 116 mL/min/1.73 sq m ESTIMATED GFR IS NOT hruw=1691) ACCURATE CREATININE CLEARANCE IN PREDICTING GLOMERULAR FILTRATION RATE. ESTIMATED GFR IS NOT APPLICABLE FOR DIALYSIS PATIENTS. HEPATIC FUNCTION [id number] 15:12:00 Test Item Value Reference Range Comments TOTAL PROTEIN (BEAKER) (test aqku=898) 5.9 gm/dL 6.0-8.3 ALBUMIN (BEAKER) (test vlfg=7316) 3.4 g/dL 3.5-5.0 BILIRUBIN TOTAL (BEAKER) (test tbrc=480) 0.3 mg/dL 0.2-1.2 BILIRUBIN DIRECT (BEAKER) (test hzug=698) 0.2 mg/dL 0.1-0.5 ALKALINE PHOSPHATASE (BEAKER) (test ykwo=056) 267 U/L 40-150 AST (SGOT) (BEAKER) (test hevg=071) 16 U/L 5-34 ALT (SGPT) (BEAKER) (test zdsu=470) 15 U/L 6-55 CBC W/PLT COUNT & AUTO [id number] 15:00:00 Test Item Value Reference Range Comments WHITE BLOOD CELL COUNT 6.7 K/ L 3.5-10.5 (BEAKER) (test slut=340) RED BLOOD CELL COUNT (BEAKER) 4.47 M/ L 3.93-5.22 (test xydv=609) HEMOGLOBIN (BEAKER) (test 8.4 GM/DL 11.2-15.7 lvsb=061) HEMATOCRIT (BEAKER) (test 28.9 % 34.1-44.9 ubls=845) MEAN CORPUSCULAR VOLUME 64.7 fL 79.4-94.8 (BEAKER) (test txki=001) MEAN CORPUSCULAR HEMOGLOBIN 18.8 pg 25.6-32.2 (BEAKER) (test ggrs=945) MEAN CORPUSCULAR HEMOGLOBIN 29.1 GM/DL 32.2-35.5 CONC (BEAKER) (test xmqk=570) RED CELL DISTRIBUTION WIDTH 25.3 % 11.7-14.4 (BEAKER) (test wxxm=950) PLATELET COUNT (BEAKER) (test 318 K/CU MM 150-450 vzhw=757) MEAN PLATELET VOLUME (BEAKER) fL 9.4-12.3 Unable to report due to (test runw=350) abnormal Platelet population distribution. NUCLEATED RED BLOOD CELLS 0 /100 WBC 0-0 (BEAKER) (test bmmx=742) NEUTROPHILS RELATIVE PERCENT 57 % (BEAKER) (test ntzg=660) LYMPHOCYTES RELATIVE PERCENT 31 % (BEAKER) (test ghmv=099) MONOCYTES RELATIVE PERCENT 8 % (BEAKER) (test txau=104) EOSINOPHILS RELATIVE PERCENT 3 % (BEAKER) (test xvqm=465) BASOPHILS RELATIVE PERCENT 0 % (BEAKER) (test kvpy=459) NEUTROPHILS ABSOLUTE COUNT 3.82 K/ L 1.56-6.13 (BEAKER) (test nypi=277) LYMPHOCYTES ABSOLUTE COUNT 2.08 K/ L 1.18-3.74 (BEAKER) (test twoc=528) MONOCYTES ABSOLUTE COUNT 0.56 K/ L 0.24-0.36 (BEAKER) (test gpur=692) EOSINOPHILS ABSOLUTE COUNT 0.18 K/ L 0.04-0.36 (BEAKER) (test zoyg=670) BASOPHILS ABSOLUTE COUNT 0.03 K/ L 0.01-0.08 (BEAKER) (test irmi=735) IMMATURE GRANULOCYTES-RELATIVE 0 % 0-1 PERCENT (BEAKER) (test usko=1500) URINALYSIS W/ [id number] 14:49:00 Test Item Value Reference Range Comments COLOR (BEAKER) (test xair=328) Light Yellow CLARITY (BEAKER) (test foas=862) Clear SPECIFIC GRAVITY UA (BEAKER) (test oyoh=603) 1.004 1.001-1.035 PH UA (BEAKER) (test hyiv=336) 7.0 5.0-8.0 PROTEIN UA (BEAKER) (test welg=937) Negative Negative GLUCOSE UA (BEAKER) (test nfws=334) Negative Negative KETONES UA (BEAKER) (test zvre=002) Negative Negative BILIRUBIN UA (BEAKER) (test nyux=533) Negative Negative BLOOD UA (BEAKER) (test wbwp=047) Negative Negative NITRITE UA (BEAKER) (test zank=484) Negative Negative LEUKOCYTE ESTERASE UA (BEAKER) (test iyqo=542) Small Negative UROBILINOGEN UA (BEAKER) (test jzrz=875) 0.2 mg/dL 0.2-1.0 RBC UA (BEAKER) (test zjho=614) 0 /HPF WBC UA (BEAKER) (test ckvt=800) 3 /HPF BACTERIA (BEAKER) (test xqmk=478) Rare SQUAMOUS EPITHELIAL (BEAKER) (test vqyr=658) 1 /HPF SOURCE(BEAKER) (test icpp=3899) Urine, Voided SCREEN, [id number] 14:46:00 Test Item Value Reference Range Comments TEST URINE (BEAKER) (test jwgx=152) Negative TISSUE [id number] 17:18:00Surgical Pathology Report Case: [id number] Authorizing Provider: Sebastien Ba Collected: 05/19/2018 1718 Ordering Location: [address] Received: 05/20/2018 0915 Service Pathologist: Rose Marie Agee MD Specimen: Bile, DISTAL BILE DUCT BX BILE DUCT, DISTAL, BIOPSIES- BENIGN COLUMNAR MUCOSA- NEGATIVE FOR DYSPLASIA OR CARCINOMA Signing Pathologist Direct Phone Line: [phone] signed by Rose Marie Agee MD on 05/24/2018 at 5:18 [id number] Distal bile duct biopsyReceived in formalin labeled "bile", description "distal bile duct biopsy " is a single fragment measuring 0.2 cm in greatest dimension. The specimen is entirely submitted in A1. DB/ew Microscopic examination is performed and the findings are incorporated in the diagnostic line.CBC W/PLT COUNT & AUTO [id number] 14:24:00 Test Item Value Reference Range Comments WHITE BLOOD CELL COUNT 6.2 K/ L 3.5-10.5 (BEAKER) (test gbxe=290) RED BLOOD CELL COUNT (BEAKER) 3.83 M/ L 3.93-5.22 (test olxq=582) HEMOGLOBIN (BEAKER) (test 7.2 GM/DL 11.2-15.7 vznl=168) HEMATOCRIT (BEAKER) (test 25.2 % 34.1-44.9 otxl=662) MEAN CORPUSCULAR VOLUME 65.8 fL 79.4-94.8 (BEAKER) (test krjk=094) MEAN CORPUSCULAR HEMOGLOBIN 18.8 pg 25.6-32.2 (BEAKER) (test xhon=631) MEAN CORPUSCULAR HEMOGLOBIN 28.6 GM/DL 32.2-35.5 CONC (BEAKER) (test cmxu=941) RED CELL DISTRIBUTION WIDTH 25.3 % 11.7-14.4 (BEAKER) (test kqta=730) PLATELET COUNT (BEAKER) (test 260 K/CU MM 150-450 pnhi=189) MEAN PLATELET VOLUME (BEAKER) fL 9.4-12.3 Unable to report due to (test ytvg=280) abnormal Platelet population distribution. NUCLEATED RED BLOOD CELLS 0 /100 WBC 0-0 (BEAKER) (test jxag=206) NEUTROPHILS RELATIVE PERCENT 42 % (BEAKER) (test lhmk=706) LYMPHOCYTES RELATIVE PERCENT 45 % (BEAKER) (test qrhc=459) MONOCYTES RELATIVE PERCENT 9 % (BEAKER) (test azwh=818) EOSINOPHILS RELATIVE PERCENT 3 % (BEAKER) (test urux=283) BASOPHILS RELATIVE PERCENT 1 % (BEAKER) (test nopq=656) NEUTROPHILS ABSOLUTE COUNT 2.58 K/ L 1.56-6.13 (BEAKER) (test uerv=738) LYMPHOCYTES ABSOLUTE COUNT 2.76 K/ L 1.18-3.74 (BEAKER) (test ubcm=050) MONOCYTES ABSOLUTE COUNT 0.57 K/ L 0.24-0.36 (BEAKER) (test hrow=601) EOSINOPHILS ABSOLUTE COUNT 0.17 K/ L 0.04-0.36 (BEAKER) (test icbq=184) BASOPHILS ABSOLUTE COUNT 0.05 K/ L 0.01-0.08 (BEAKER) (test kwps=301) IMMATURE GRANULOCYTES-RELATIVE 1 % 0-1 PERCENT (BEAKER) (test ljxr=5575) COMPREHENSIVE METABOLIC [id number] 13:21:00 Test Item Value Reference Range Comments TOTAL PROTEIN (BEAKER) 5.0 gm/dL 6.0-8.3 (test kpqp=426) ALBUMIN (BEAKER) (test 2.9 g/dL 3.5-5.0 jjan=6144) ALKALINE PHOSPHATASE 278 U/L 40-150 (BEAKER) (test jjsg=033) BILIRUBIN TOTAL (BEAKER) 0.2 mg/dL 0.2-1.2 (test lpjg=560) SODIUM (BEAKER) (test 139 meq/L 136-145 aage=994) POTASSIUM (BEAKER) (test 3.9 meq/L 3.5-5.1 rmms=378) CHLORIDE (BEAKER) (test 109 meq/L 98-107 kbbd=489) CO2 (BEAKER) (test 21 meq/L 22-29 olrv=327) BLOOD UREA NITROGEN 4 mg/dL 7-21 (BEAKER) (test hnyg=797) CREATININE (BEAKER) (test 0.59 mg/dL 0.57-1.25 igcz=039) GLUCOSE RANDOM (BEAKER) 87 mg/dL 70-105 (test bufx=333) CALCIUM (BEAKER) (test 8.0 mg/dL 8.4-10.2 rtdd=052) AST (SGOT) (BEAKER) (test 17 U/L 5-34 hyhd=233) ALT (SGPT) (BEAKER) (test 23 U/L 6-55 llux=118) EGFR (BEAKER) (test 112 mL/min/1.73 sq ESTIMATED GFR IS NOT nfxu=6470) m ACCURATE CREATININE CLEARANCE IN PREDICTING GLOMERULAR FILTRATION RATE. ESTIMATED GFR IS NOT APPLICABLE FOR DIALYSIS PATIENTS. [id number] 16:59:00 Test Item Value Reference Range Comments LIPASE (BEAKER) (test qvck=886) 15 U/L 8-78 COMPREHENSIVE METABOLIC [id number] 16:59:00 Test Item Value Reference Range Comments TOTAL PROTEIN (BEAKER) 5.2 gm/dL 6.0-8.3 (test ipre=094) ALBUMIN (BEAKER) (test 3.1 g/dL 3.5-5.0 lsmv=1800) ALKALINE PHOSPHATASE 392 U/L 40-150 (BEAKER) (test plcu=504) BILIRUBIN TOTAL (BEAKER) 0.3 mg/dL 0.2-1.2 (test khim=471) SODIUM (BEAKER) (test 140 meq/L 136-145 fqku=110) POTASSIUM (BEAKER) (test 3.8 meq/L 3.5-5.1 pyyi=304) CHLORIDE (BEAKER) (test 106 meq/L 98-107 zglu=570) CO2 (BEAKER) (test 31 meq/L 22-29 hdkp=486) BLOOD UREA NITROGEN 3 mg/dL 7-21 (BEAKER) (test vqiz=715) CREATININE (BEAKER) (test 0.58 mg/dL 0.57-1.25 dpiz=639) GLUCOSE RANDOM (BEAKER) 108 mg/dL 70-105 (test ftgx=431) CALCIUM (BEAKER) (test 8.3 mg/dL 8.4-10.2 nsdn=728) AST (SGOT) (BEAKER) (test 28 U/L 5-34 zkbl=046) ALT (SGPT) (BEAKER) (test 54 U/L 6-55 lhwo=999) EGFR (BEAKER) (test 114 mL/min/1.73 sq ESTIMATED GFR IS NOT mcjp=5648) m ACCURATE CREATININE CLEARANCE IN PREDICTING GLOMERULAR FILTRATION RATE. ESTIMATED GFR IS NOT APPLICABLE FOR DIALYSIS PATIENTS. CBC W/PLT COUNT & AUTO [id number] 16:52:00 Test Item Value Reference Range Comments WHITE BLOOD CELL COUNT 6.4 K/ L 3.5-10.5 (BEAKER) (test knie=577) RED BLOOD CELL COUNT (BEAKER) 3.83 M/ L 3.93-5.22 (test qzyp=186) HEMOGLOBIN (BEAKER) (test 7.3 GM/DL 11.2-15.7 drng=855) HEMATOCRIT (BEAKER) (test 25.0 % 34.1-44.9 hoyx=138) MEAN CORPUSCULAR VOLUME 65.3 fL 79.4-94.8 (BEAKER) (test yrqt=468) MEAN CORPUSCULAR HEMOGLOBIN 19.1 pg 25.6-32.2 (BEAKER) (test bupi=807) MEAN CORPUSCULAR HEMOGLOBIN 29.2 GM/DL 32.2-35.5 CONC (BEAKER) (test knrb=393) RED CELL DISTRIBUTION WIDTH 25.5 % 11.7-14.4 (BEAKER) (test iieu=839) PLATELET COUNT (BEAKER) (test 237 K/CU MM 150-450 zicl=145) MEAN PLATELET VOLUME (BEAKER) fL 9.4-12.3 Unable to report due to (test aamb=753) abnormal Platelet population distribution. NUCLEATED RED BLOOD CELLS 0 /100 WBC 0-0 (BEAKER) (test kqaj=704) NEUTROPHILS RELATIVE PERCENT 53 % (BEAKER) (test nzyn=001) LYMPHOCYTES RELATIVE PERCENT 36 % (BEAKER) (test jnuy=303) MONOCYTES RELATIVE PERCENT 8 % (BEAKER) (test ojfe=263) EOSINOPHILS RELATIVE PERCENT 2 % (BEAKER) (test auva=591) BASOPHILS RELATIVE PERCENT 0 % (BEAKER) (test fzjq=817) NEUTROPHILS ABSOLUTE COUNT 3.41 K/ L 1.56-6.13 (BEAKER) (test xpcd=977) LYMPHOCYTES ABSOLUTE COUNT 2.32 K/ L 1.18-3.74 (BEAKER) (test nqki=794) MONOCYTES ABSOLUTE COUNT 0.53 K/ L 0.24-0.36 (BEAKER) (test zfwt=845) EOSINOPHILS ABSOLUTE COUNT 0.14 K/ L 0.04-0.36 (BEAKER) (test qlhm=319) BASOPHILS ABSOLUTE COUNT 0.02 K/ L 0.01-0.08 (BEAKER) (test hbnp=980) IMMATURE GRANULOCYTES-RELATIVE 0 % 0-1 PERCENT (BEAKER) (test ykob=3115) FL, [id number] 18:28:00Intra Op ImagingReason for exam:->bile duct stone obstructionFINAL REPORT ERCP 6 views 05/19/2018 6:27 PM CLINICAL HISTORY: Instrument localization COMPARISON: None available IMPRESSION : Please correlate imaging report findings with the procedure note prepared by Dr. Ba, as an intra-procedure imaging consultation was not requested. Reported fluoroscopy time: 133.9 seconds. Signed: Barron Miner Verified Date/Time: 05/19/2018 18:28:10 Reading Location: [facility] Radiology Reading Room Electronically signed by: BARRON MINER M.D. on 06:28 PMPREGNANCY SCREEN, [id number] 09:50:00 Test Item Value Reference Range Comments TEST URINE (BEAKER) (test emln=118) Negative CBC W/PLT COUNT & AUTO [id number] 06:38:00 Test Item Value Reference Range Comments WHITE BLOOD CELL COUNT 4.9 K/ L 3.5-10.5 (BEAKER) (test ffgv=471) RED BLOOD CELL COUNT (BEAKER) 4.00 M/ L 3.93-5.22 (test ynnk=982) HEMOGLOBIN (BEAKER) (test 7.4 GM/DL 11.2-15.7 zdgm=963) HEMATOCRIT (BEAKER) (test 26.1 % 34.1-44.9 kanq=782) MEAN CORPUSCULAR VOLUME 65.3 fL 79.4-94.8 (BEAKER) (test pxww=708) MEAN CORPUSCULAR HEMOGLOBIN 18.5 pg 25.6-32.2 (BEAKER) (test hwio=855) MEAN CORPUSCULAR HEMOGLOBIN 28.4 GM/DL 32.2-35.5 CONC (BEAKER) (test wkgh=451) RED CELL DISTRIBUTION WIDTH 25.9 % 11.7-14.4 (BEAKER) (test tauz=880) PLATELET COUNT (BEAKER) (test 210 K/CU MM 150-450 lone=617) MEAN PLATELET VOLUME (BEAKER) fL 9.4-12.3 Unable to report due to (test zirt=855) abnormal Platelet population distribution. NUCLEATED RED BLOOD CELLS 0 /100 WBC 0-0 (BEAKER) (test udbq=502) NEUTROPHILS RELATIVE PERCENT 44 % (BEAKER) (test hmjw=366) LYMPHOCYTES RELATIVE PERCENT 42 % (BEAKER) (test qfux=038) MONOCYTES RELATIVE PERCENT 8 % (BEAKER) (test bvwn=736) EOSINOPHILS RELATIVE PERCENT 5 % (BEAKER) (test hggv=109) BASOPHILS RELATIVE PERCENT 1 % (BEAKER) (test uwkm=994) NEUTROPHILS ABSOLUTE COUNT 2.19 K/ L 1.56-6.13 (BEAKER) (test twct=376) LYMPHOCYTES ABSOLUTE COUNT 2.07 K/ L 1.18-3.74 (BEAKER) (test kgeq=848) MONOCYTES ABSOLUTE COUNT 0.40 K/ L 0.24-0.36 (BEAKER) (test jyoj=328) EOSINOPHILS ABSOLUTE COUNT 0.23 K/ L 0.04-0.36 (BEAKER) (test begy=760) BASOPHILS ABSOLUTE COUNT 0.03 K/ L 0.01-0.08 (BEAKER) (test iioy=152) IMMATURE GRANULOCYTES-RELATIVE 0 % 0-1 PERCENT (BEAKER) (test slab=0726) HEPATIC FUNCTION [id number] 06:36:00 Test Item Value Reference Range Comments TOTAL PROTEIN (BEAKER) (test ygxs=101) 4.9 gm/dL 6.0-8.3 ALBUMIN (BEAKER) (test efky=3859) 3.0 g/dL 3.5-5.0 BILIRUBIN TOTAL (BEAKER) (test ykbl=488) 0.2 mg/dL 0.2-1.2 BILIRUBIN DIRECT (BEAKER) (test nwam=350) 0.1 mg/dL 0.1-0.5 ALKALINE PHOSPHATASE (BEAKER) (test kwum=448) 437 U/L 40-150 AST (SGOT) (BEAKER) (test oszu=101) 57 U/L 5-34 ALT (SGPT) (BEAKER) (test mxxr=492) 89 U/L 6-55 BASIC METABOLIC [id number] 06:36:00 Test Item Value Reference Range Comments SODIUM (BEAKER) (test 138 meq/L 136-145 upus=327) POTASSIUM (BEAKER) (test 3.8 meq/L 3.5-5.1 wfaq=875) CHLORIDE (BEAKER) (test 105 meq/L 98-107 tazz=830) CO2 (BEAKER) (test 27 meq/L 22-29 vzpc=588) BLOOD UREA NITROGEN 5 mg/dL 7-21 (BEAKER) (test cfli=772) CREATININE (BEAKER) (test 0.58 mg/dL 0.57-1.25 mgdd=447) GLUCOSE RANDOM (BEAKER) 90 mg/dL 70-105 (test cpqj=026) CALCIUM (BEAKER) (test 8.3 mg/dL 8.4-10.2 pmxm=746) EGFR (BEAKER) (test 114 mL/min/1.73 sq m ESTIMATED GFR IS NOT vaae=4612) ACCURATE CREATININE CLEARANCE IN PREDICTING GLOMERULAR FILTRATION RATE. ESTIMATED GFR IS NOT APPLICABLE FOR DIALYSIS PATIENTS. PROTHROMBIN [id number] 06:17:00 Test Item Value Reference Range Comments PROTIME (BEAKER) (test zrhh=746) 13.2 seconds 11.7-14.7 INR (BEAKER) (test ojwp=911) 1.0 <=5.9 RECOMMENDED COUMADIN/WARFARIN INR THERAPY RANGESSTANDARD DOSE: 2.0 - 3.0 Includes: PROPHYLAXIS forvenous thrombosis, systemic embolization; TREATMENT for venous thrombosis and/or pulmonary embolus.HIGH RISK: Target INR is 2.5-3.5 for patients with mechanical heart valves.HEPATIC FUNCTION [id number] 05:18 :00 Test Item Value Reference Range Comments TOTAL PROTEIN (BEAKER) (test augz=439) 5.2 gm/dL 6.0-8.3 ALBUMIN (BEAKER) (test lysq=6834) 3.1 g/dL 3.5-5.0 BILIRUBIN TOTAL (BEAKER) (test ggco=927) 0.3 mg/dL 0.2-1.2 BILIRUBIN DIRECT (BEAKER) (test vctg=935) 0.2 mg/dL 0.1-0.5 ALKALINE PHOSPHATASE (BEAKER) (test lpfw=312) 537 U/L 40-150 AST (SGOT) (BEAKER) (test favb=432) 126 U/L 5-34 ALT (SGPT) (BEAKER) (test smvf=072) 136 U/L 6-55 BASIC METABOLIC [id number] 05:18:00 Test Item Value Reference Range Comments SODIUM (BEAKER) (test 139 meq/L 136-145 epss=929) POTASSIUM (BEAKER) (test 4.0 meq/L 3.5-5.1 ljcx=137) CHLORIDE (BEAKER) (test 106 meq/L 98-107 vlpx=316) CO2 (BEAKER) (test 27 meq/L 22-29 vcqo=604) BLOOD UREA NITROGEN 6 mg/dL 7-21 (BEAKER) (test rklz=640) CREATININE (BEAKER) (test 0.53 mg/dL 0.57-1.25 swhf=338) GLUCOSE RANDOM (BEAKER) 87 mg/dL 70-105 (test rplm=998) CALCIUM (BEAKER) (test 8.2 mg/dL 8.4-10.2 noko=674) EGFR (BEAKER) (test 127 mL/min/1.73 sq m ESTIMATED GFR IS NOT cehi=8006) ACCURATE CREATININE CLEARANCE IN PREDICTING GLOMERULAR FILTRATION RATE. ESTIMATED GFR IS NOT APPLICABLE FOR DIALYSIS PATIENTS. PROTHROMBIN [id number] 04:49:00 Test Item Value Reference Range Comments PROTIME (BEAKER) (test kuuy=955) 12.7 seconds 11.7-14.7 INR (BEAKER) (test ywsx=029) 1.0 <=5.9 RECOMMENDED COUMADIN/WARFARIN INR THERAPY RANGESSTANDARD DOSE: 2.0 - 3.0 Includes: PROPHYLAXIS forvenous thrombosis, systemic embolization; TREATMENT for venous thrombosis and/or pulmonary embolus.HIGH RISK: Target INR is 2.5-3.5 for patients with mechanical heart valves.CBC W/PLT COUNT & AUTO [id number] 04:47:00 Test Item Value Reference Range Comments WHITE BLOOD CELL COUNT 4.4 K/ L 3.5-10.5 (BEAKER) (test zmrz=144) RED BLOOD CELL COUNT (BEAKER) 4.02 M/ L 3.93-5.22 (test ophp=412) HEMOGLOBIN (BEAKER) (test 7.6 GM/DL 11.2-15.7 bvtx=404) HEMATOCRIT (BEAKER) (test 26.3 % 34.1-44.9 nomr=391) MEAN CORPUSCULAR VOLUME 65.4 fL 79.4-94.8 (BEAKER) (test jrcv=628) MEAN CORPUSCULAR HEMOGLOBIN 18.9 pg 25.6-32.2 (BEAKER) (test daoi=819) MEAN CORPUSCULAR HEMOGLOBIN 28.9 GM/DL 32.2-35.5 CONC (BEAKER) (test jtub=312) RED CELL DISTRIBUTION WIDTH 25.9 % 11.7-14.4 (BEAKER) (test hpqm=200) PLATELET COUNT (BEAKER) (test 218 K/CU MM 150-450 uyws=511) MEAN PLATELET VOLUME (BEAKER) fL 9.4-12.3 Unable to report due to (test ywgj=969) abnormal Platelet population distribution. NUCLEATED RED BLOOD CELLS 0 /100 WBC 0-0 (BEAKER) (test pzyv=762) NEUTROPHILS RELATIVE PERCENT 49 % (BEAKER) (test clkv=625) LYMPHOCYTES RELATIVE PERCENT 38 % (BEAKER) (test eikj=257) MONOCYTES RELATIVE PERCENT 8 % (BEAKER) (test yxwc=464) EOSINOPHILS RELATIVE PERCENT 4 % (BEAKER) (test hpyf=656) BASOPHILS RELATIVE PERCENT 1 % (BEAKER) (test ivac=052) NEUTROPHILS ABSOLUTE COUNT 2.18 K/ L 1.56-6.13 (BEAKER) (test jzki=889) LYMPHOCYTES ABSOLUTE COUNT 1.67 K/ L 1.18-3.74 (BEAKER) (test fhpu=763) MONOCYTES ABSOLUTE COUNT 0.36 K/ L 0.24-0.36 (BEAKER) (test dtdu=103) EOSINOPHILS ABSOLUTE COUNT 0.19 K/ L 0.04-0.36 (BEAKER) (test unyi=281) BASOPHILS ABSOLUTE COUNT 0.03 K/ L 0.01-0.08 (BEAKER) (test vlby=606) IMMATURE GRANULOCYTES-RELATIVE 0 % 0-1 PERCENT (BEAKER) (test fxfz=0588) MR, ABDOMEN, [id number] 16:29:00Please do mrcpFINAL REPORT INDICATION:42-year-old female with [...] MDReport Verified Date/Time: 05/17/2018 16:29:27 Reading Location: [facility] B1 C013X Ortho Consult Reading Room Electronically signed by: IRVING SENA M.D. on 2017 04:29 [id number] 10:08:00 Test Item Value Reference Range Comments FERRITIN (BEAKER) (test spgj=153) 11 ng/mL 5-275 IRON, TIBC, % SAT. (WITHOUT FERRITIN)2018-05-17 09:48:00 Test Item Value Reference Range Comments IRON (BEAKER) (test nhew=639) 23 ug/dL 40-160 TOTAL IRON BINDING CAPACITY (BEAKER) (test 436 ug/dL 250-450 gukb=957) IRON % SATURATION (2) (BEAKER) (test iupg=0837) 5 % 20-55 RAPID DRUG SCREEN, [id number] 09:04:00 Test Item Value Reference Range Comments BARBITURATE URINE (BEAKER) (test vzkq=104) Negative Negative BENZODIAZEPINE SCREEN URINE (BEAKER) (test Negative Negative muxg=284) COCAINE (METAB.) SCREEN (BEAKER) (test qfko=2157) Negative Negative METHADONE SCREEN (BEAKER) (test agms=3421) Negative Negative OPIATE SCREEN URINE (BEAKER) (test fect=165) Positive Negative CANNABINOID SCREEN URINE (BEAKER) (test zcxv=771) Negative Negative AMPH/METHAMPH SCREEN (BEAKER) (test iwlq=7409) Negative Negative PHENCYCLIDINE SCREEN URINE (BEAKER) (test jwjc=123) Negative Negative OXYCODONE SCREEN URINE (BEAKER) (test ldro=3480) Negative Negative DRUG CUTOFF CONC.Cocaine 300 ng/mL Cannabinoid 50 ng/mL Benzodiazepine 200 ng/mLBarbiturate 200 ng/ mLPhencyclidine 25 ng/mLOpiate 300 ng/mLMethadone 300 ng/mLAmphetamine/ 1000 ng/mL MethamphetamineOxycodone 300 ng/mLThis assay provides an unconfirmed qualitative test result for the clinical management of patients in emergency situations. Chain of custody not maintained. Some hzkq-ckn-meyjwzq medications, as well as adulterants, may cause inaccurate results. Clinical correlation should be applied. A more comprehensive drug screen or confirmation of a detected drug may be performed upon request.CBC W/PLT COUNT & AUTO [id number] 06:17:00 Test Item Value Reference Range Comments WHITE BLOOD CELL COUNT 4.8 K/ L 3.5-10.5 (BEAKER) (test nwrm=178) RED BLOOD CELL COUNT (BEAKER) 4.03 M/ L 3.93-5.22 (test pqvv=434) HEMOGLOBIN (BEAKER) (test 7.4 GM/DL 11.2-15.7 sdxk=423) HEMATOCRIT (BEAKER) (test 26.1 % 34.1-44.9 vyzm=543) MEAN CORPUSCULAR VOLUME 64.8 fL 79.4-94.8 (BEAKER) (test xdxy=379) MEAN CORPUSCULAR HEMOGLOBIN 18.4 pg 25.6-32.2 (BEAKER) (test xeak=270) MEAN CORPUSCULAR HEMOGLOBIN 28.4 GM/DL 32.2-35.5 CONC (BEAKER) (test fzrh=618) RED CELL DISTRIBUTION WIDTH 26.2 % 11.7-14.4 (BEAKER) (test smzw=214) PLATELET COUNT (BEAKER) (test 201 K/CU MM 150-450 yzxt=118) MEAN PLATELET VOLUME (BEAKER) fL 9.4-12.3 Unable to report due to (test mgtf=578) abnormal Platelet population distribution. NUCLEATED RED BLOOD CELLS 0 /100 WBC 0-0 (BEAKER) (test lqzy=450) NEUTROPHILS RELATIVE PERCENT 46 % (BEAKER) (test vmox=002) LYMPHOCYTES RELATIVE PERCENT 40 % (BEAKER) (test sgeo=484) MONOCYTES RELATIVE PERCENT 8 % (BEAKER) (test jgaf=979) EOSINOPHILS RELATIVE PERCENT 4 % (BEAKER) (test zwpn=631) BASOPHILS RELATIVE PERCENT 1 % (BEAKER) (test lilz=555) NEUTROPHILS ABSOLUTE COUNT 2.20 K/ L 1.56-6.13 (BEAKER) (test hiic=380) LYMPHOCYTES ABSOLUTE COUNT 1.91 K/ L 1.18-3.74 (BEAKER) (test mjrr=053) MONOCYTES ABSOLUTE COUNT 0.40 K/ L 0.24-0.36 (BEAKER) (test mqux=871) EOSINOPHILS ABSOLUTE COUNT 0.20 K/ L 0.04-0.36 (BEAKER) (test ljhs=245) BASOPHILS ABSOLUTE COUNT 0.03 K/ L 0.01-0.08 (BEAKER) (test fjkj=718) IMMATURE GRANULOCYTES-RELATIVE 0 % 0-1 PERCENT (BEAKER) (test ifwk=2785) HEPATIC FUNCTION [id number] 06:10:00 Test Item Value Reference Range Comments TOTAL PROTEIN (BEAKER) (test ikqa=445) 5.1 gm/dL 6.0-8.3 ALBUMIN (BEAKER) (test gxjr=4897) 3.1 g/dL 3.5-5.0 BILIRUBIN TOTAL (BEAKER) (test oonc=168) 0.4 mg/dL 0.2-1.2 BILIRUBIN DIRECT (BEAKER) (test fasz=948) 0.2 mg/dL 0.1-0.5 ALKALINE PHOSPHATASE (BEAKER) (test whhz=637) 545 U/L 40-150 AST (SGOT) (BEAKER) (test zbtm=847) 192 U/L 5-34 ALT (SGPT) (BEAKER) (test yyiq=790) 150 U/L 6-55 BASIC METABOLIC [id number] 06:10:00 Test Item Value Reference Range Comments SODIUM (BEAKER) (test 138 meq/L 136-145 orsi=430) POTASSIUM (BEAKER) (test 3.7 meq/L 3.5-5.1 oryo=120) CHLORIDE (BEAKER) (test 105 meq/L 98-107 mfpy=583) CO2 (BEAKER) (test 27 meq/L 22-29 phvo=309) BLOOD UREA NITROGEN 9 mg/dL 7-21 (BEAKER) (test rlkm=381) CREATININE (BEAKER) (test 0.53 mg/dL 0.57-1.25 rghn=597) GLUCOSE RANDOM (BEAKER) 78 mg/dL 70-105 (test kckc=223) CALCIUM (BEAKER) (test 8.5 mg/dL 8.4-10.2 vbxo=167) EGFR (BEAKER) (test 127 mL/min/1.73 sq m ESTIMATED GFR IS NOT iccq=5990) ACCURATE CREATININE CLEARANCE IN PREDICTING GLOMERULAR FILTRATION RATE. ESTIMATED GFR IS NOT APPLICABLE FOR DIALYSIS PATIENTS. PROTHROMBIN [id number] 05:55:00 Test Item Value Reference Range Comments PROTIME (BEAKER) (test jion=876) 13.3 seconds 11.7-14.7 INR (BEAKER) (test joss=865) 1.0 <=5.9 RECOMMENDED COUMADIN/WARFARIN INR THERAPY RANGESSTANDARD DOSE: 2.0 - 3.0 Includes: PROPHYLAXIS forvenous thrombosis, systemic embolization; TREATMENT for venous thrombosis and/or pulmonary embolus.HIGH RISK: Target INR is 2.5-3.5 for patients with mechanical heart valves.[id number] 18:19:00 Test Item Value Reference Range Comments MAGNESIUM (BEAKER) (test iucv=120) 2.1 mg/dL 1.6-2.6 COMPREHENSIVE METABOLIC [id number] 18:19:00 Test Item Value Reference Range Comments TOTAL PROTEIN (BEAKER) 6.0 gm/dL 6.0-8.3 (test foyj=325) ALBUMIN (BEAKER) (test 3.7 g/dL 3.5-5.0 vdhg=0653) ALKALINE PHOSPHATASE 559 U/L 40-150 (BEAKER) (test lbvh=083) BILIRUBIN TOTAL (BEAKER) 0.3 mg/dL 0.2-1.2 (test ubmu=769) SODIUM (BEAKER) (test 138 meq/L 136-145 jrao=818) POTASSIUM (BEAKER) (test 4.3 meq/L 3.5-5.1 ttjb=086) CHLORIDE (BEAKER) (test 104 meq/L 98-107 lyvm=353) CO2 (BEAKER) (test 24 meq/L 22-29 wrwo=262) BLOOD UREA NITROGEN 14 mg/dL 7-21 (BEAKER) (test vfiz=989) CREATININE (BEAKER) (test 0.67 mg/dL 0.57-1.25 uhjj=138) GLUCOSE RANDOM (BEAKER) 101 mg/dL 70-105 (test kkki=086) CALCIUM (BEAKER) (test 8.7 mg/dL 8.4-10.2 seuf=805) AST (SGOT) (BEAKER) (test 184 U/L 5-34 ydlx=945) ALT (SGPT) (BEAKER) (test 171 U/L 6-55 vngf=014) EGFR (BEAKER) (test 97 mL/min/1.73 sq m ESTIMATED GFR IS NOT lcfb=2617) ACCURATE CREATININE CLEARANCE IN PREDICTING GLOMERULAR FILTRATION RATE. ESTIMATED GFR IS NOT APPLICABLE FOR DIALYSIS PATIENTS. [id number] 18:19:00 Test Item Value Reference Range Comments LIPASE (BEAKER) (test cdqt=536) 24 U/L 8-78 URINALYSIS [id number] 18:17:00 Test Item Value Reference Range Comments RBC UA (BEAKER) (test ohhb=292) 2 /HPF WBC UA (BEAKER) (test lttw=572) 4 /HPF MUCUS (BEAKER) (test qvdn=7791) Many SQUAMOUS EPITHELIAL (BEAKER) (test vkqo=660) 2 /HPF URINALYSIS WITH MICROSCOPIC IF [id number] 18:16:00 Test Item Value Reference Range Comments COLOR (BEAKER) (test mcew=121) Yellow CLARITY (BEAKER) (test eesb=928) Clear SPECIFIC GRAVITY UA (BEAKER) (test lhyw=923) 1.027 1.001-1.035 PH UA (BEAKER) (test bvwn=893) 5.5 5.0-8.0 PROTEIN UA (BEAKER) (test cbfy=326) 20 mg/dL Negative GLUCOSE UA (BEAKER) (test sdst=687) Negative Negative KETONES UA (BEAKER) (test pyeb=437) Negative Negative BILIRUBIN UA (BEAKER) (test lepn=511) Negative Negative BLOOD UA (BEAKER) (test wncg=288) Moderate Negative NITRITE UA (BEAKER) (test xxbx=350) Negative Negative LEUKOCYTE ESTERASE UA (BEAKER) (test nqlu=322) Small Negative UROBILINOGEN UA (BEAKER) (test dnex=489) 3.0 mg/dL 0.2-1.0 SOURCE(BEAKER) (test gony=6938) CBC W/PLT COUNT & AUTO [id number] 18:01:00 Test Item Value Reference Range Comments WHITE BLOOD CELL COUNT 7.8 K/ L 3.5-10.5 (BEAKER) (test tzwj=016) RED BLOOD CELL COUNT (BEAKER) 4.17 M/ L 3.93-5.22 (test ppmr=433) HEMOGLOBIN (BEAKER) (test 8.0 GM/DL 11.2-15.7 jyfm=085) HEMATOCRIT (BEAKER) (test 26.6 % 34.1-44.9 qmof=504) MEAN CORPUSCULAR VOLUME 63.8 fL 79.4-94.8 (BEAKER) (test ykga=610) MEAN CORPUSCULAR HEMOGLOBIN 19.2 pg 25.6-32.2 (BEAKER) (test zjpi=320) MEAN CORPUSCULAR HEMOGLOBIN 30.1 GM/DL 32.2-35.5 CONC (BEAKER) (test pfbj=653) RED CELL DISTRIBUTION WIDTH 26.1 % 11.7-14.4 (BEAKER) (test ujuj=838) PLATELET COUNT (BEAKER) (test 283 K/CU MM 150-450 jjlv=689) MEAN PLATELET VOLUME (BEAKER) fL 9.4-12.3 Unable to report due to (test whvf=639) abnormal Platelet population distribution. NUCLEATED RED BLOOD CELLS 0 /100 WBC 0-0 (BEAKER) (test yjua=353) NEUTROPHILS RELATIVE PERCENT 61 % (BEAKER) (test daif=627) LYMPHOCYTES RELATIVE PERCENT 26 % (BEAKER) (test rkwi=703) MONOCYTES RELATIVE PERCENT 8 % (BEAKER) (test cmhd=801) EOSINOPHILS RELATIVE PERCENT 5 % (BEAKER) (test vdyj=373) BASOPHILS RELATIVE PERCENT 0 % (BEAKER) (test rjxr=022) NEUTROPHILS ABSOLUTE COUNT 4.72 K/ L 1.56-6.13 (BEAKER) (test gzzw=106) LYMPHOCYTES ABSOLUTE COUNT 2.01 K/ L 1.18-3.74 (BEAKER) (test sqbs=283) MONOCYTES ABSOLUTE COUNT 0.63 K/ L 0.24-0.36 (BEAKER) (test uqub=206) EOSINOPHILS ABSOLUTE COUNT 0.35 K/ L 0.04-0.36 (BEAKER) (test jknz=304) BASOPHILS ABSOLUTE COUNT 0.03 K/ L 0.01-0.08 (BEAKER) (test qiqk=894) IMMATURE GRANULOCYTES-RELATIVE 0 % 0-1 PERCENT (BEAKER) (test cktl=0621) ANKLE 3 [id number] 20:42:[address] [id number] IMAGING REPORTPatient Name: BABATUNDE CHAMBERS ADate of Service: [id number]: 42 Sex: F Order #: [id number] Room: QERDOB: 1975 X-Ray Number: [id number] Record Number: [id number] Hospital Number: [id number] Physician: COLIN ABRAHAM Physician : TEIXEIRA, ISAACRIGHT [...] authenticated by EREN BURDICK 2018-03-19 20:39:41US RENAL [id number] 04:43:00[place] [id number] IMAGING REPORTPatient Name: BABATUNDE CHAMBERS of Service: [id number]: 41 Sex: F Order #: [id number] Room: ERSDOB : 1975 X-Ray Number: [id number] Record Number: [id number] Hospital Number: [id number] Physician: MARY CHUNGOrdering Physician : Duane CHUNGateral [...] BRANDI MORAES V 2017-02-27 04:41:36CT ABDOMEN/ PELVIS [id number] 23:27:00[place] [id number] IMAGING REPORTPatient Name: BABATUNDE CHAMBERS ADate of Service: [id number]: 41 Sex: F Order #: [id number] Room: ERSDOB : 1975 X-Ray Number: [id number] Record Number: [id number] Hospital Number: [id number] Physician: BLANK, LOC TANOrdering Physician: ARCELIA DARNELL [...]
--- NOTE | 2019-12-20 12:44 | RAD REPORT ---
EXAM DESCRIPTION: CT - Head Brain Wo Cont - 12/20/2019 12:37 pm CLINICAL HISTORY: Headache COMPARISON: December 17, 2019 TECHNIQUE: Computed axial tomography of the head was obtained. IV contrast was not requested. All CT scans are performed using dose optimization technique as appropriate and may include automated exposure control or mA/KV adjustment according to patient size. FINDINGS: An intracranial bleed is not seen . The ventricles are normal in caliber. No extra-axial fluid collection is noted. Fluid within the sinuses/ mastoids is not seen. IMPRESSION: No acute intracranial abnormality is seen. If patient's symptoms persist MRI of the bra in would be recommended.
[2019-12-20] MEDS ORDERED: DIPHENHYDRAMINE 50 MG/ML VIAL ONE (12:55)
[2019-12-20] MEDS ORDERED: KETOROLAC 30 MG/ML INJ ONE (12:55)
[2019-12-20] MEDS ORDERED: ONDANSETRON 4 MG (ODT) TAB ONE (12:56)
--- NOTE | 2019-12-20 13:47 | EDPHYS ---
Physician Documentation [facility] Name: Moira Saldaña Age: 44 yrs Sex: Female : 1975 Arrival Date: 12/20/2019 Time: 11:30 Bed 20 Private MD: ED Physician Jace Jeronimo HPI: 12/20 12:36 This 44 yrs old Female presents to ER via EMS with complaints of Jaw Pain, lesia Tremor. 12:36 The patient complains of pain to the left side of the back of head, left occipital lesia area, left base of the skull, right side of the back of head, right occipital area and right base of the skull. The patient describes the headache as aching. Onset: The symptoms/episode began/occurred 2 day(s) ago. Associated signs and symptoms: Pertinent positives: dizziness. Severity of symptoms: At its worst the pain was mild, moderate, in the emergency department the pain is unchanged. Headache History: The patient has had previous headaches and this one is similar to previous episodes. The symptoms are alleviated by nothing. the symptoms are aggravated by nothing. The patient has experienced similar episodes in the past, several times. 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 - Coronavirus screen:: The patient has NOT traveled to [place], [place], or [place] in the past 14 days. Proceed with normal triage process as indicated. The patient has NOT had contact with known/suspected case of Coronavirus? Proceed with normal triage procedures. - Social history:: Smoking status: Patient reports the use of cigarette tobacco products. - Family history:: not pertinent. - Ebola Screening: : Patient negative for fever greater than or equal to 101.5 degrees Fahrenheit, and additional compatible Ebola Virus Disease symptoms Patient denies exposure to infectious person Patient denies travel to an Ebola-affected area in the 21 days before illness onset No symptoms or risks identified at this time. ROS: 12:36 Constitutional: Negative for fever, chills, and weight loss, Eyes: Negative for injury, lesia pain, redness, and discharge, ENT: Negative for injury, pain, and discharge, Neck: Negative for injury, pain, and swelling, Cardiovascular: Negative for chest pain, palpitations, and edema, Respiratory: Negative for shortness of breath, cough, wheezing, and pleuritic chest pain, Abdomen/GI: Negative for abdominal pain, nausea, vomiting, diarrhea, and constipation, Back: Negative for injury and pain, : Negative for injury, bleeding, discharge, and swelling, MS/Extremity: Negative for injury and deformity, Skin: Negative for injury, rash, and discoloration, Psych: Negative for depression, anxiety, suicide ideation, homicidal ideation, and hallucinations, Allergy/Immunology: Negative for hives, rash, and allergies, Endocrine: Negative for neck swelling, polydipsia, polyuria, polyphagia, and marked weight changes, Hematologic/Lymphatic: Negative for swollen nodes, abnormal bleeding, and unusual bruising. 12:36 Neuro: Positive for headache. Exam: 12:36 Constitutional: This is a well developed, well nourished patient who is awake, alert, lesia and in no acute distress. Head/Face: Normocephalic, atraumatic. Eyes: Pupils equal round and reactive to light, extra-ocular motions intact. Lids and lashes normal. Conjunctiva and sclera are non-icteric and not injected. Cornea within normal limits. Periorbital areas with no swelling, redness, or edema. ENT: Nares patent. No nasal discharge, no septal abnormalities noted. Tympanic membranes are normal and external auditory canals are clear. Oropharynx with no redness, swelling, or masses, exudates, or evidence of obstruction, uvula midline. Mucous membranes moist. Neck: Trachea midline, no thyromegaly or masses palpated, and no cervical lymphadenopathy. Supple, full range of motion without nuchal rigidity, or vertebral point tenderness. No Meningismus. Chest/axilla: Normal chest wall appearance and motion. Nontender with no deformity. No lesions are appreciated. Cardiovascular: Regular rate and rhythm with a normal S1 and S2. No gallops, murmurs, or rubs. Normal PMI, no JVD. No pulse deficits. Respiratory: Lungs have equal breath sounds bilaterally, clear to auscultation and percussion. No rales, rhonchi or wheezes noted. No increased work of breathing, no retractions or nasal flaring. Abdomen/GI: Soft, non-tender, with normal bowel sounds. No distension or tympany. No guarding or rebound. No evidence of tenderness throughout. Back: No spinal tenderness. No costovertebral tenderness. Full range of motion. Skin: Warm, dry with normal turgor. Normal color with no rashes, no lesions, and no evidence of cellulitis. MS/ Extremity: Pulses equal, no cyanosis. Neurovascular intact. Full, normal range of motion. Neuro: Awake and alert, GCS 15, oriented to person, place, time, and situation. Cranial nerves II-XII grossly intact. Motor strength 5/5 in all extremities. Sensory grossly intact. Cerebellar exam normal. Normal gait. Psych: Awake, alert, with orientation to person, place and time. Behavior, mood, and affect are within normal limits. 12:36 Neck: ROM/movement: is normal, no acute changes, Meningeal signs: are not present, Kernig's sign is negative, Brudzinski's sign is negative. Vital Signs: 11:38 BP 110 / 71; Pulse 58; Resp 17; Pulse Ox 100% on R/A; Weight 54 kg (R); Height 5 ft. 4 ca1 in. (162.56 cm) (R); 12:50 BP 138 / 95; Pulse 77; Resp 18 S; sg 12:55 BP 132 / 93 Sitting; Pulse 80; sg 13:00 BP 125 / 87 Standing; Pulse 88 MON; sg 11:38 Body Mass Index 20.43 (54.00 kg, 162.56 cm) ca1 MDM: 11:32 Patient medically screened. [facility] 12:38 Data reviewed: vital signs, nurses notes, lab test result(s), radiologic studies, CT lesia scan. 12/20 12:26 Order name: UDS [facility] 12/20 13:59 Order name: Urine Dipstick--Ancillary (enter results) 12/20 12:26 Order name: CT Head Brain wo Cont; Complete Time: 13:47 [facility] 12/20 12:26 Order name: Urine Dipstick-Ancillary (obtain specimen); Complete Time: 14:01 [facility] 12/20 12:26 Order name: Urine Test (obtain specimen); Complete Time: 14: [facility] 12/20 12:39 Order name: Orthostatics; Complete Time: 13:08 [facility] Administered Medications: 12:45 Drug: Benadryl 50 mg Route: IM; Site: right ventrogluteal; sg 14:18 Follow up: Response: No adverse reaction sg 12:50 Drug: Zofran 4 mg Route: PO; sg 14:19 Follow up: Response: No adverse reaction 12:55 Drug: TORadol 60 mg Route: IM; Site: right ventrogluteal; sg 14:18 Follow up: Response: No adverse reaction; Pain is decreased sg Disposition: 12/20/19 13:47 Discharged to Home. Impression: Headache. - Condition is Stable. - Discharge Instructions: General Headache Without Cause, General Headache Without Cause, Svuw-pb-Wkun. - Prescriptions for Ibuprofen 600 mg Oral Tablet - take 1 tablet by ORAL route every 6 hours As needed take with food; 21 tablet. Zofran 4 mg Oral Tablet - take 1 tablet by ORAL route every 12 hours As needed; 20 tablet. - Medication Reconciliation Form, Thank You Letter, Antibiotic Education, Prescription Opioid Use form. - Follow up: Private Physician; When: 2 - 3 days; Reason: Recheck today's complaints, Continuance of care, Re-evaluation by your physician. Follow up: Parth Argueta; When: 2 - 3 days; Reason: Recheck today's complaints, Continuance of care, Re-evaluation by your physician. - Problem is new. - Symptoms have improved. Signatures: Dispatcher [employer] EDMS Austin Roque RN RN sg Anderson, Corey, MD MD [facility] Corrections: (The following items were deleted from the chart) 14:55 13:47 12/20/2019 13:47 Discharged to Home. Impression: Headache. Condition is Stable. sg Discharge Instructions: General Headache Without Cause, General Headache Without Cause, [id number]-Ittp. Prescriptions for Ibuprofen 600 mg Oral Tablet - take 1 tablet by ORAL route every 6 hours As needed take with food; 21 tablet, Zofran 4 mg Oral Tablet - take 1 tablet by ORAL route every 12 hours As needed; 20 tablet. and Forms are Medication Reconciliation Form, Thank You Letter, Antibiotic Education, Prescription Opioid Use. Follow up: Private Physician; When: 2 - 3 days; Reason: Recheck today's complaints, Continuance of care, Re-evaluation by your physician. Follow up: Parth Argueta; When: 2 - 3 days; Reason: Recheck today's complaints, Continuance of care, Re-evaluation by your physician. Problem is new. Symptoms have improved. lesia
--- NOTE | 2019-12-20 13:47 | ER ---
Nurse's Notes [facility] Name: Moira Saldaña Age: 44 yrs Sex: Female : 1975 Arrival Date: 12/20/2019 Time: 11:30 Bed 20 Private MD: Diagnosis: Headache Presentation: 12/20 11:31 Presenting complaint: Patient states: My jaw is having pain because i think one of my sg medications is causing me to clench my jaw and its just hurting and getting worse. Presenting complaint: EMS states: Called to [facility] for tremor that began today. Transition of care: patient was received from another setting of care (rehabilitation facility). Onset of symptoms was December 20, 2019. Risk Assessment: Do you want to hurt yourself or someone else? Patient reports no desire to harm self or others. Initial Sepsis Screen: Does the patient meet any 2 criteria? No. Patient's initial sepsis screen is negative. Does the patient have a suspected source of infection? No. Patient's initial sepsis screen is negative. Care prior to arrival: None. 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 - Coronavirus screen:: The patient has NOT traveled to [place], [place], or [place] in the past 14 days. Proceed with normal triage process as indicated. The patient has NOT had contact with known/suspected case of Coronavirus? Proceed with normal triage procedures. - Social history:: Smoking status: Patient reports the use of cigarette tobacco products. - Family history:: not pertinent. - Ebola Screening: : Patient negative for fever greater than or equal to 101.5 degrees Fahrenheit, and additional compatible Ebola Virus Disease symptoms Patient denies exposure to infectious person Patient denies travel to an Ebola-affected area in the 21 days before illness onset No symptoms or risks identified at this time. Screenin:40 Abuse screen: Denies threats or abuse. Denies injuries from another. Nutritional sg screening: No deficits noted. Tuberculosis screening: No symptoms or risk factors identified. Never had TB. Fall Risk None identified. Assessment: 11:40 General: Appears in no apparent distress. well groomed, well developed, well nourished, sg Behavior is calm, cooperative, appropriate for age. Pain: Complains of pain in right jaw and left jaw. Neuro: Level of Consciousness is awake, alert, obeys commands, Oriented to person, place, time, Spd Tech are equal bilaterally Moves all extremities. Gait is steady, Speech is normal, Facial symmetry appears normal, Reports tremor to hands and arms. Cardiovascular: Patient's skin is warm and dry. Chest pain is denied. Respiratory: Airway is patent Respiratory effort is even, unlabored, Respiratory pattern is regular, symmetrical. GI: No signs and/or symptoms were reported involving the gastrointestinal system. : No signs and/or symptoms were reported regarding the genitourinary system. EENT: No signs and/or symptoms were reported regarding the EENT system. Derm: Skin is pink, warm \T\ dry. Musculoskeletal: Circulation, motion, and sensation intact. Range of motion: intact in all extremities. 13:50 Reassessment: Patient appears in no apparent distress at this time. Patient and/or sg family updated on plan of care and expected duration. Pain level reassessed. pt provided with tony crackers and a turkey sandwich with a diet coke. 14:15 Reassessment: [facility] contacted, spoke with Pauline, awaiting transportation at this sg time. Vital Signs: 11:38 BP 110 / 71; Pulse 58; Resp 17; Pulse Ox 100% on R/A; Weight 54 kg (R); Height 5 ft. 4 ca1 in. (162.56 cm) (R); 12:50 BP 138 / 95; Pulse 77; Resp 18 S; sg 12:55 BP 132 / 93 Sitting; Pulse 80; sg 13:00 BP 125 / 87 Standing; Pulse 88 MON; sg 11:38 Body Mass Index 20.43 (54.00 kg, 162.56 cm) ca1 ED Course: 11:30 Patient arrived in ED. sg 11:32 Jace Jeronimo MD is Attending Physician. [facility] 11:32 Triage completed. sg 11:32 Arm band placed on. sg 11:39 Austin Roque, RN is Primary Nurse. sg 12:37 CT Head Brain wo Cont In Process Unspecified. EDMS 13:47 Parth Argueta MD is Referral Physician. lesia Administered Medications: 12:45 Drug: Benadryl 50 mg Route: IM; Site: right ventrogluteal; sg 14:18 Follow up: Response: No adverse reaction sg 12:50 Drug: Zofran 4 mg Route: PO; sg 14:19 Follow up: Response: No adverse reaction sg 12:55 Drug: TORadol 60 mg Route: IM; Site: right ventrogluteal; sg 14:18 Follow up: Response: No adverse reaction; Pain is decreased sg Outcome: 13:47 Discharge ordered by . [facility] 14:55 Patient left the ED. sg Signatures: Dispatcher [employer] EDTN Austin Roque RN RN Jace Jeronimo MD MD cha Acob, Cheryl RN RN ca1 Corrections: (The following items were deleted from the chart) 14:15 13:50 Reassessment: Patient appears in no apparent distress at this time. Patient sg and/or family updated on plan of care and expected duration. Pain level reassessed. pt provided with tony crackers and a turkey sandwich with a diet coke, pt stated understanding sg
[2019-12-20 14:10] LABS: Barbiturates NEGATIVE (NEGATIVE); Benzodiazepines NEGATIVE (NEGATIVE); Cocaine NEGATIVE (NEGATIVE); METHAMPHETAM NEGATIVE (NEGATIVE); Methadone NEGATIVE (NEGATIVE); Opiates NEGATIVE (NEGATIVE); Phencyclidine NEGATIVE (NEGATIVE); THC Cannibis NEGATIVE (NEGATIVE)
[2019-12-20 15:10] VITALS: O2SAT 100
[2019-12-20 15:14] VITALS: BP 125/87
[2019-12-20 20:12] LABS: Urine Blood NEGATIVE (NEG); Urine Glucose NEGATIVE (NEG); Urine Protein NEGATIVE (NEG)
== END 2019-12-20 14:55 | disposition home or self-care (01) ==
LOC: ER 11:28
DX: R51 Headache (principal); Z88.0 Allergy status to penicillin; Z88.6 Allergy status to analgesic agent; Z88.8 Allergy status to other drugs, medicaments and biological substances; Z91.012 Allergy to eggs; Z91.013 Allergy to seafood
CPT/HCPCS: 70450; 80307; 81003; 96372; 99283; J1200